=== PATIENT | female | born 1935 | race Caucasian/White ===

== ENCOUNTER 2021-01-04 08:58 | Inpatient (IN) | payer MEDICARE, SELFPAY ==
[2021-01-04] VITALS (30 sets, daily range): BP systolic 115–146; BP diastolic 52–65; PULSE 58–89; RESP 17–26; TEMP 36.3–37.3; O2SAT 22–100; BMI 19.4; BMI 16.7
--- NOTE | 2021-01-04 09:11 | RAD_ITS ---
STUDY: X-RAY CHEST REASON FOR EXAM: Female, 85 years old. Cough TECHNIQUE: Single AP portable view of the chest. COMPARISON: Comparison is made with prior study dated 01/14/2016. FINDINGS: EKG electrodes are seen. Infiltrate in the right upper and right lower lobes as well as in the lingular segment of the left upper lobe. There is no demonstrated pleural abnormality. Normal size heart. Normal mediastinum and laney. Normal visualized pulmonary arteries. There is atherosclerotic calcification of the aortic arch with tortuosity. There are degenerative changes of the visualized thoracic spine. Normal visualized ribs, clavicles, and shoulders. Hiatal hernia. RAD/Chest 1 View (Portable) IMPRESSION: Infiltrate in the right upper and right lower lobes as well as in the lingular segment of the left upper lobe. Electronically Signed: Sea Tee MD at 9:51 EDT , Service support ,
--- NOTE | 2021-01-04 09:11 | EKG12_ITS ---
Test Reason : SOB COVID + Blood Pressure : / mmHG Vent. Rate : 080 BPM Atrial Rate : 080 BPM P-R Int : 126 ms QRS Dur : 056 ms QT Int : 350 ms P-R-T Axes : 072 031 035 degrees QTc Int : 403 ms Normal sinus rhythm Nonspecific ST abnormality Abnormal ECG Confirmed by POLY WALLS, YOLIS ([id number]), newspaper copy editor MURRAY THIBODEAUX ([id number]) on 01/05/2021 9:22:34 AM Referred By: RENU Confirmed By:YOLIS PANG MD
--- NOTE | 2021-01-04 09:13 | EDS_ITS ---
HPI History of Present Illness Chief Complaint: Shortness of Breath Narrative Narrative: Patient presenting for evaluation secondary to shortness of breath. Patient has a underlying history of hypertension. She had a recent hospital admission secondary to a fall and generalized weakness, and is known to be coronavirus positive. Patient was discharged, and had a recent worsening of her respiratory status. She reports that she has been ill with coronavirus symptoms over the course of approximately last week. Patient apparently woke up today and was having increasing issues with shortness of breath. She does endorse a cough and some thick sputum. She denies any chest pain. No significant nausea vomiting or diarrhea associated with this. Patient was noted to be profoundly hypoxic on room air in the 70s, she is not typically on any sort of supplemental oxygen and she does not smoke. PFSH PFSH Home Medications folic acid 2 mg PO DAILY 01/08/16 [History Last Taken 01/09/16] metoprolol succinate 25 mg PO DAILY 01/08/16 [History Last Taken 01/09/16 07:00] naproxen [Naprosyn] 1 tab PO BID 01/08/16 [History Last Taken 01/09/16 07:00] ramipril 2.5 mg PO DAILY 01/08/16 [History Last Taken 01/09/16 07:00] furosemide 40 mg PO DAILY #5 tablet 01/14/16 [Rx Last Taken Unknown] dexamethasone 6 mg PO DAILY 01/04/21 [History Last Taken Unknown] fluticasone furoate-vilanterol [Breo Ellipta] 1 inh INHALATION DAILY 01/04/21 [History Last Taken Unknown] lidocaine 1 patch TOPICAL DAILY 01/04/21 [History Last Taken Unknown] Allergy/AdvReac Type Severity Reaction Status Date / Time amoxicillin Allergy Hives Verified 01/04/21 09:08 guaifenesin [From Mucinex] Allergy Hives Verified 01/04/21 09:08 loratadine [From Claritin] Allergy Other Verified 01/04/21 09:08 Penicillins Allergy Hives Verified 01/04/21 09:08 tramadol Allergy Other Verified 01/04/21 09:08 codeine AdvReac Vomiting Verified 01/04/21 09:08 Sulfa (Sulfonamide AdvReac Vomiting Verified 01/04/21 09:08 Antibiotics) Social History Smoking Status: Unknown if ever smoked ROS ROS ED Constitutional Constitutional ED: Reports other Details: Generalized malaise ENT ENT ED: Denies sore throat Cardiovascular Cardiovascular: Denies chest pain Respiratory/Chest Respiratory/Chest: Reports cough and dyspnea Gastrointestinal Gastrointestinal: Denies abdominal pain, diarrhea, nausea or vomiting Genitourinary Genitourinary ED: Denies dysuria Musculoskeletal Musculoskeletal: Denies myalgias Integumentary Denies rash Neurologic Neurologic: Denies headache(s) or weakness Psychiatric Psychiatric: Denies depression Endocrine Endocrinology: Denies polydipsia or polyuria Hematologic/Lymphatic Hematologic/Lymphatic: Denies easy bleeding or easy bruising Allergic/Immunologic Allergic/Immunologic ED: Denies urticaria EXAM Physical Exam Const Vital Signs: 01/04/21 08:59 01/04/21 09:06 01/04/21 09:12 Temperature 98.0 F 98.0 F Temperature Source Temporal Temporal Pulse Rate 83 89 Respiratory Rate 26 H 26 H Respiratory Effort Respiratory Depth Respiratory Pattern Blood Pressure 144/52 H 144/52 H Blood Pressure Mean 82 82 Pulse Ox 90 70 97 Oxygen Delivery Method Nasal Cannula Room Air Airvo Oxygen Flow Rate (L/min) 15 Fraction of Inspired Oxygen (FIO2) 01/04/21 09:24 01/04/21 09:27 01/04/21 09:44 Temperature Temperature Source Pulse Rate 85 80 Respiratory Rate 22 H 17 Respiratory Effort Short of Breath Labored Accessory Muscle Use Retracting Respiratory Depth Shallow Respiratory Pattern Tachypnea Tachypnea Normal Blood Pressure Blood Pressure Mean Pulse Ox 95 95 Oxygen Delivery Method Room Air Oxygen Flow Rate (L/min) Fraction of Inspired Oxygen (FIO2) 50 83 01/04/21 09:58 Temperature Temperature Source Pulse Rate 81 Respiratory Rate 22 H Respiratory Effort Respiratory Depth Respiratory Pattern Blood Pressure 120/57 L Blood Pressure Mean 78 Pulse Ox 99 Oxygen Delivery Method Airvo Oxygen Flow Rate (L/min) Fraction of Inspired Oxygen (FIO2) Positive cachectic General Appearance ED: cachectic and other Moderately dyspneic Nutritional Appearance: cachectic HEENT Reports moist mucous membranes atraumatic Eyes PERRL and EOMs intact bilaterally Neck supple and no JVD Resp Resp Narrative: Minimally tachypneic, clear lung sounds. No evidence of retractions or accessory muscle use. Cardio regular rate, regular rhythm and no murmurs Cardio Narrative: 2+ radial pulses bilaterally symmetric GI non-tender Palpation: soft Extremity normal to inspection General Extremety ED: Negative for edema or tenderness General Extremity: Negative for edema Neuro oriented x3 Sensorium / Orientation: alert Psych mental status grossly normal Skin Lesions: no lesions Rashes: no rashes MDM MDM MDM Narrative Medical decision making narrative: Patient presented secondary to shortness of b reath and poor oxygenation in the setting of coronavirus. Patient was placed on high flow nasal cannula, she was able to be titrated to a reasonable oxygenation. Her chest x-ray by my personal review demonstrates bilateral infiltrates right being worse than the left. Patient was noted to have a leukocytosis at 12, and elevated D-dimer and fibrinogen. Renal function was actually reasonably within normal limits. LDH was 368. Troponin was negative. Lactic acid was noted to be elevated. Patient was started on gentle fluid resuscitation. I was concerned for the possibility of pulmonary embolism in the patient, CT angiogram confirmed this. Patient was given Decadron, she was also started on a heparin drip. Patient likely requires admission to intensive care. Lab Data Labs: Laboratory Results - last 24 hr 01/04/21 01/04/21 01/04/21 09:05 09:05 09:05 WBC 12.3 H RBC 4.25 Hgb 13.2 Hct 41.4 MCV 97.4 MCH 31.1 MCHC 31.9 L RDW Std Deviation 43.9 RDW Coeff of Dinorah 12.3 Plt Count 209 MPV 9.7 Immature Gran % (Auto) 2.400 H Neut % (Auto) 89.5 H Lymph % (Auto) 5.4 L [place] % (Auto) 2.4 Eos % (Auto) 0.1 Baso % (Auto) 0.2 Absolute Neuts (auto) 11.0 H Absolute Lymphs (auto) 0.66 L Nucleated RBC % 0 Fibrinogen 465 H D-Dimer Quant (PE/DVT) > 20.00 H* Sodium 135 L Potassium 4.1 Chloride 99 Carbon Dioxide 30.0 Anion Gap 6 BUN 14 Creatinine 0.77 Estim Creat Clear Calc 30.73 Est GFR (MDRD) Af Amer 91 Est GFR (MDRD) Non-Af 75 BUN/Creatinine Ratio 18.1 Glucose 101 Lactic Acid Calcium 8.9 Total Bilirubin 0.40 AST 17 ALT 14 Alkaline Phosphatase 82 Lactate Dehydrogenase 368 H Total Creatine Kinase 17 L Troponin I < 0.015 C-React Prot Ext Range 45.50 H Total Protein 6.7 Albumin 2.6 L Globulin 4.1 Albumin/Globulin Ratio 0.6 L 01/04/21 09:05 WBC RBC Hgb Hct MCV MCH MCHC RDW Std Deviation RDW Coeff of Dinorah Plt Count MPV Immature Gran % (Auto) Neut % (Auto) Lymph % (Auto) [place] % (Auto) Eos % (Auto) Baso % (Auto) Absolute Neuts (auto) Absolute Lymphs (auto) Nucleated RBC % Fibrinogen D-Dimer Quant (PE/DVT) Sodium Potassium Chloride Carbon Dioxide Anion Gap BUN Creatinine Estim Creat Clear Calc Est GFR (MDRD) Af Amer Est GFR (MDRD) Non-Af BUN/Creatinine Ratio Glucose Lactic Acid 2.8 H* Calcium Total Bilirubin AST ALT Alkaline Phosphatase Lactate Dehydrogenase Total Creatine Kinase Troponin I C-React Prot Ext Range Total Protein Albumin Globulin Albumin/Globulin Ratio Radiography Chest X-Ray - ED: 1 View, Read by ED Physician, Right Infiltrate and Left Infiltrate Diagnostic Testing: Radiology Impression Chest X-Ray 01/04/21 09:11 IMPRESSION: Infiltrate in the right upper and right lower lobes as well as in the lingular segment of the left upper lobe. Electronically Signed: Sea Tee MD at 9:51 EDT , Service support , Chest CTA 01/04/21 10:25 IMPRESSION: Pulmonary emboli in the branches of the right upper lobe pulmonary artery. Areas of groundglass appearance in both lungs worse in the right hemithorax suggestive of a Covid pneumonitis. Electronically Signed: Sea Tee MD at 11:16 EDT , Service support , EKG Initial EKG: Attestation: I personally reviewed and interpreted this EKG as follows: (Sinus rhythm of [address] changes, no evidence of pathologic ST elevation or abnormal T wave inversion. Normal intervals.) Critical Care Time Critical Care Time: Yes Critical care time (excluding procedures): 30-74 minutes, Including time spent:, Discussing w/Patient &/or Family/Split Leather Mosser, Discussing w/Consultants, Arranging Admission or Transfer and Performing Direct Patient Care at Bedside Discharge Plan Triage Chief Complaint: Shortness of Breath ED Provider: Edu Aden Dx/Rx/DC Orders Clinical Impression: COVID-19, Respiratory failure, Pulmonary emboli Prescriptions: No Action ramipril 2.5 MG capsule 2.5 mg PO DAILY RF: 0 folic acid 1 MG tablet 2 mg PO DAILY RF: 0 metoprolol succinate 25 MG tablet 25 mg PO DAILY RF: 0 naproxen [Naprosyn] 500 MG tablet 1 tab PO BID RF: 0 furosemide 40 MG tablet 40 mg PO DAILY Qty: 5 RF: 0 lidocaine 4 % Adhesive Patch,Medicated 1 patch TOPICAL DAILY RF: 0 dexamethasone 6 mg tablet 6 mg PO DAILY RF: 0 Breo Ellipta 100-25 mcg/dose blister with device 1 inh INHALATION DAILY RF: 0 Primary Care Provider: Jennie Matias NP Referrals: Jennie Matias NP, [employer] OPERATOR-C [Primary Care Provider] - Disposition Disposition: Acute Care [facility]
[2021-01-04 09:18] LABS: Absolute Lymphocyte Count 0.66 X10^3/uL (0.83-4.51); Basophil# 0.03 X10^3/uL; Basophil% 0.2 % (0-1); Eosinophil# 0.01 X10^3/uL; Eosinophils% 0.1 % (0-5); Hematocrit 41.4 % (37-47); Hemoglobin 13.2 g/dL (12.0-15.0); Lymphocyte # 0.66 X10^3/ul (0.83-4.51); Lymphocyte % 5.4 % (19-41); Mean Corp Hgb Conc 31.9 g/dL (32-36); Mean Corpuscular Hgb 31.1 pg (27.0-32.0); Mean Corpuscular Volume 97.4 fL (81-99); Mean Platelet Vol. 9.7 fl (6.2-12.0); Monocyte% 2.4 % (0-10); NRBC Flagged by Analyzer 0 % (0-5); Neutrophil # 10.96 X10^3/uL (2.7-7.7); Neutrophil % 89.5 % (47-70); Platelet Count 209 K/mm3 (150-450); RBC Distribution Width CV 12.3 % (11.6-14.6); RBC Distribution Width SD 43.9 fl (35.1-43.9); Red Blood Count 4.25 M/mm3 (4.2-5.4); White Blood Count 12.3 K/mm3 (4.4-11.0)
[2021-01-04] MEDS: dexAMETHasone 10 MG/ML Vial 8 MG IV (09:21)
[2021-01-04 09:31] LABS: Fibrinogen 465 mg/dl (203-444)
[2021-01-04 09:44] LABS: ALB/GLOB Ratio 0.6 RATIO (0.9-2.4); AST(SGOT) 17 U/L (15-37); Alanine Aminotransfer ALT/SGPT 14 U/L (13-56); Albumin, Serum 2.6 g/dL (3.2-5.0); Alkaline Phosphatase 82 U/L (45-117); Anion Gap 6 (5-15); BUN 14 mg/dL (7-18); BUN/Creat Ratio 18.1 RATIO (10-20); CPK Total, Creatine Kinase 17 U/L (26-192); Calcium,Total 8.9 mg/dL (8.5-10.1); Chloride 99 mmol/L (98-107); Creatinine, Serum 0.77 mg/dL (0.55-1.02); EST Glomerular Filtration Rate 75 mL/min (>60); Est Glom Filt Rate - Afr Amer 91 mL/min (>60); Estimated Creatinine Clearance 30.73 ml/min; Globulin 4.1 g/dL (2.2-4.2); Glucose 101 mg/dL (74-106); LDH 368 U/L (84-246); Potassium 4.1 mmol/L (3.5-5.1); Protein, Total 6.7 g/dL (6.4-8.2); Sodium Level 135 mmol/L (136-145)
[2021-01-04 09:53] LABS: Lactic Acid 2.8 mmol/L (0.4-1.9)
--- NOTE | 2021-01-04 10:25 | CT_ITS ---
STUDY: CTA CHEST REASON FOR EXAM: Female, 85 years old. Severe Hypoxia, COVID RADIATION DOSAGE (If Supplied By Facility): CTDIvol = ( 5.42 ) mGy, DLP = ( 107.43 ) mGycm TECHNIQUE: The examination was performed with the intravenous administration of IV 100mL Isovue-370. Post-processing of the angiographic images was performed, with multiplanar reformation and 3D reconstruction. Individualized dose optimization techniques were used for this CT. COMPARISON: None. FINDINGS: Multiple intraluminal filling defects in branches of the right upper lobe pulmonary artery in keeping with the pulmonary emboli. There is atherosclerotic calcification of the aortic arch with tortuosity. There is no demonstrated aortic dissection. There are calcifications of the coronary arteries. Normal mediastinum. Normal hilar regions. Normal visualized trachea and bronchi. The lungs are well expanded. There is evidence of groundglass appearance in the preferential peripheral distribution involving the right upper and right lower lobes as well as right middle lobe. Patchy areas of groundglass appearance also seen in the left lower lobe and lingular segment of the left upper lobe in keeping with the diagnosis of Covid. Normal pleura. Normal chest wall structures. Normal osseous structures. Normal visualized upper abdomen. CT/CTA Chest W/WO Contrast IMPRESSION: Pulmonary emboli in the branches of the right upper lobe pulmonary artery. Areas of groundglass appearance in both lungs worse in the right hemithorax suggestive of a Covid pneumonitis. Electronically Signed: Sea Tee MD at 11:16 EDT , Service support ,
[2021-01-04 10:32] LABS: D-Dimer Quantitative (DVT/PE) > 20.00 FEU/ug/m (0.27-0.49)
--- NOTE | 2021-01-04 11:44 | HP.PCM.HOS_ITS ---
HPI - General General Date of Admission: 01/04/21 HPI Narrative ALICE KING, is a 85 F with a PMH as outlined who was admitted via the ED on 01/04/2021 with a complaint of shortness of breath. She had been sick for about a week, and wasnt getting better. She was saturating at 70% on room air at home according to her daughter. They therefore decided to bring her into the ED. CXR showed evidence of COVID 19 pneumonia. SHe seemed more hypoxic and so a CTA of the chest showed evidence of PE, so she ws started on heparin drip. In the ED, vitals showed blood pressure of 120/57, pulse of 81 respiratory rate of 22 and she was saturating at 99% on air Vo. Labs showed hemoglobin of 13.2 with WBC of 12.3 and platelets of 209. D-dimer was markedly elevated at over 20. Chemistry shows sodium of 135 with bicarb of 30 and lactic acid of 2.8. CT of the chest showed multiple intraluminal filling defects in branch of the right upper lobe pulmonary artery consistent with pulmonary emboli and evidence of groundglass appearance in both lungs worse in the right hemithorax suggestive of Covid pneumonitis. She has been admitted to be managed for acute hypoxic respiratory failure due to Covid pneumonia and PE. Of note, patient has not received her Covid vaccination. [facility] Home Medications folic acid 2 mg PO DAILY 01/08/16 [History Last Taken 01/09/16] metoprolol succinate 25 mg PO DAILY 01/08/16 [History Last Taken 01/09/16 07:00] naproxen [Naprosyn] 1 tab PO BID 01/08/16 [History Last Taken 01/09/16 07:00] ramipril 2.5 mg PO DAILY 01/08/16 [History Last Taken 01/09/16 07:00] furosemide 40 mg PO DAILY #5 tablet 01/14/16 [Rx Last Taken Unknown] dexamethasone 6 mg PO DAILY 01/04/21 [History Last Taken Unknown] fluticasone furoate-vilanterol [Breo Ellipta] 1 inh INHALATION DAILY 01/04/21 [History Last Taken Unknown] lidocaine 1 patch TOPICAL DAILY 01/04/21 [History Last Taken Unknown] Allergy/AdvReac Type Severity Reaction Status Date / Time amoxicillin Allergy Hives Verified 01/04/21 09:08 guaifenesin [From Mucinex] Allergy Hives Verified 01/04/21 09:08 loratadine [From Claritin] Allergy Other Verified 01/04/21 09:08 Penicillins Allergy Hives Verified 01/04/21 09:08 tramadol Allergy Other Verified 01/04/21 09:08 codeine AdvReac Vomiting Verified 01/04/21 09:08 Sulfa (Sulfonamide AdvReac Vomiting Verified 01/04/21 09:08 Antibiotics) Social History Smoking Status: Unknown if ever smoked ROS Constitutional Constitutional: Reports fatigue, malaise and weakness ENT HEENT: Denies abnormal hearing Cardiovascular Cardiovascular: Reports dyspnea on exertion; Denies chest pain, edema, lightheadedness, orthopnea, paroxysmal nocturnal dyspnea, rapid heart rate or syncope Respiratory/Chest Respiratory/Chest: Reports cough, dyspnea, shortness of breath at rest and shortness of breath with exertion; Denies excessive phlegm production, productive cough or wheezing Gastrointestinal Gastrointestinal: Denies abdominal pain, diarrhea, hematochezia, nausea or vomiting Genitourinary Genitourinary: Denies burning urination Musculoskeletal Musculoskeletal: Denies arthralgias, myalgias or neck pain Neurologic Neurologic: Denies dizziness, focal weakness, headache(s), numbness or seizures Psychiatric Psychiatric: Denies anxiety or depression Hematologic/Lymphatic Hematologic/Lymphatic: Denies anemia Vital Signs Vital Signs Vital Signs: 01/04/21 08:59 01/04/21 09:06 01/04/21 09:12 Temperature 98.0 F 98.0 F Temperature Source Temporal Temporal Pulse Rate 83 89 Respiratory Rate 26 H 26 H Respiratory Effort Respiratory Depth Respiratory Pattern Blood Pressure 144/52 H 144/52 H Blood Pressure Mean 82 82 Pulse Ox 90 70 97 Oxygen Delivery Method Nasal Cannula Room Air Airvo Oxygen Flow Rate (L/min) 15 Fraction of Inspired Oxygen (FIO2) 01/04/21 09:24 01/04/21 09:27 01/04/21 09:44 Temperature Temperature Source Pulse Rate 85 80 Respiratory Rate 22 H 17 Respiratory Effort Short of Breath Labored Accessory Muscle Use Retracting Respiratory Depth Shallow Respiratory Pattern Tachypnea Tachypnea Normal Blood Pressure Blood Pressure Mean Pulse Ox 95 95 Oxygen Delivery Method Room Air Oxygen Flow Rate (L/min) Fraction of Inspired Oxygen (FIO2) 50 83 01/04/21 09:58 Temperature Temperature Source Pulse Rate 81 Respiratory Rate 22 H Respiratory Effort Respiratory Depth Respiratory Pattern Blood Pressure 120/57 L Blood Pressure Mean 78 Pulse Ox 99 Oxygen Delivery Method Airvo Oxygen Flow Rate (L/min) Fraction of Inspired Oxygen (FIO2) Physical Exam Const alert and oriented x3 Orientation / Consciousness: lethargic HEENT head/scalp atraumatic and hearing grossly normal bilaterally Eyes PERRL, EOMs intact bilaterally and conjunctivae normal Neck no lymphadenopathy Resp Resp Narrative: diminished breath sounds bibasally; Tachypneic. On Airvo GI normal to inspection, nondistended, normoactive bowel sounds, soft to palpation, non-tender and non-distended Extremity normal to inspection, full ROM and no clubbing, cyanosis or edema Skin no rashes or lesions noted Neuro oriented x3 Sensorium / Orientation: awake and alert Psych affect normal Lab / Micro Data Result Diagrams: 01/04/21 09:05 01/04/21 09:05 Labs: Laboratory Results - last 24 hr 01/04/21 01/04/21 01/04/21 09:05 09:05 09:05 WBC 12.3 H RBC 4.25 Hgb 13.2 Hct 41.4 MCV 97.4 MCH 31.1 MCHC 31.9 L RDW Std Deviation 43.9 RDW Coeff of Dinorah 12.3 Plt Count 209 MPV 9.7 Immature Gran % (Auto) 2.400 H Neut % (Auto) 89.5 H Lymph % (Auto) 5.4 L [place] % (Auto) 2.4 Eos % (Auto) 0.1 Baso % (Auto) 0.2 Absolute Neuts (auto) 11.0 H Absolute Lymphs (auto) 0.66 L Nucleated RBC % 0 Fibrinogen 465 H D-Dimer Quant (PE/DVT) > 20.00 H* Sodium 135 L Potassium 4.1 Chloride 99 Carbon Dioxide 30.0 Anion Gap 6 BUN 14 Creatinine 0.77 Estim Creat Clear Calc 30.73 Est GFR (MDRD) Af Amer 91 Est GFR (MDRD) Non-Af 75 BUN/Creatinine Ratio 18.1 Glucose 101 Lactic Acid Calcium 8.9 Total Bilirubin 0.40 AST 17 ALT 14 Alkaline Phosphatase 82 Lactate Dehydrogenase 368 H Total Creatine Kinase 17 L Troponin I < 0.015 C-React Prot Ext Range 45.50 H Total Protein 6.7 Albumin 2.6 L Globulin 4.1 Albumin/Globulin Ratio 0.6 L 01/04/21 09:05 WBC RBC Hgb Hct MCV MCH MCHC RDW Std Deviation RDW Coeff of Dinorah Plt Count MPV Immature Gran % (Auto) Neut % (Auto) Lymph % (Auto) [place] % (Auto) Eos % (Auto) Baso % (Auto) Absolute Neuts (auto) Absolute Lymphs (auto) Nucleated RBC % Fibrinogen D-Dimer Quant (PE/DVT) Sodium Potassium Chloride Carbon Dioxide Anion Gap BUN Creatinine Estim Creat Clear Calc Est GFR (MDRD) Af Amer Est GFR (MDRD) Non-Af BUN/Creatinine Ratio Glucose Lactic Acid 2.8 H* Calcium Total Bilirubin AST ALT Alkaline Phosphatase Lactate Dehydrogenase Total Creatine Kinase Troponin I C-React Prot Ext Range Total Protein Albumin Globulin Albumin/Globulin Ratio Micro: Microbiology 01/04/21 09:15 SARS-CoV-2 Antigen (Rapid) - Final Nasal Secretion SARS-CoV-2 (COVID 19) Radiology Impression Chest X-Ray 01/04/21 09:11 IMPRESSION: Infiltrate in the right upper and right lower lobes as well as in the lingular segment of the left upper lobe. Electronically Signed: Sea Tee MD at 9:51 EDT , Service support , Chest CTA 01/04/21 10:25 IMPRESSION: Pulmonary emboli in the branches of the right upper lobe pulmonary artery. Areas of groundglass appearance in both lungs worse in the right hemithorax suggestive of a Covid pneumonitis. Electronically Signed: Sea Tee MD at 11:16 EDT , Service support , Assessment & Plan Assessment/Plan (1) COVID-19: Status: Acute Code(s): U07.1 - COVID-19 (2) Respiratory failure: Status: Acute Code(s): J96.90 - Respiratory failure, unspecified, unspecified whether with hypoxia or hypercapnia (3) Pulmonary emboli: Status: Acute Code(s): I26.99 - Other pulmonary embolism without acute cor pulmonale (4) Essential (primary) hypertension: Status: Chronic Code(s): I10 - Essential (primary) hypertension (5) Rheumatoid arthritis: Status: Chronic Code(s): M06.9 - Rheumatoid arthritis, unspecified Plan: #Acute hypoxic respiratory failure due to COVID 19 infection * Admit to ICU * Consult critical care * Titrate oxygen to maintain saturation above 90%. Patient was diagnosed with Covid over 1 week ago to leave up to critical care to determine if she would benefit from the severe * IV Decadron 6 mg daily * * # Right-sided pulmonary embolism * CT of the chest showed PE in the right upper lobes * Started on heparin drip. Will continue. Transition to oral anticoagulant * Pulmonology consulted. * PE is likely due to COVID-19 infection * #COVID-19 pneumonia: As on the respiratory failure due to COVID-19 infection #Hypertension: On metoprolol and ramipril. Will continue. DVT prophylaxis: Not indicated as patient is on heparin drip. Code status: Paitent and daughter counseled about differences between full code, DNRCC and DNRCCA. Patient elects to be full code. Total kpad-to-ckcx time 17 minutes. * Visit Charges Inpatient E&M: 59831 Init Hosp L3 Multi Select Codes Hospitalists' Procedures Procedures: 45099 Advncd Care Plan 30 Min
[2021-01-04 11:48] LABS: Partial Thromboplast Time 26.5 Seconds (24.1-36.2)
[2021-01-04] MEDS: Heparin Injection (Vial) 5,000 UNIT/ML VIAL 3000 UNIT IV (11:53)
[2021-01-04] MEDS: HEPARIN/D5w 25,000 UNITS 25,000 UNITS/250 ML IV.SOLN. 5.5 UNITS IV (11:54)
[2021-01-04 12:19] LABS: Procalcitonin 0.07 ng/mL (0.00-0.09)
--- NOTE | 2021-01-04 12:38 | NURSING ---
icu 4 delilah singleton, resp failure, pe
[2021-01-04 13:14] LABS: Reflex Lactate? Y
[2021-01-04 14:36] LABS: Lactic Acid 1.6 mmol/L (0.4-1.9)
[2021-01-04] MEDS: Albuterol 2.5 MG/3 ML VIAL.NEB. INHALATION (18:54)
[2021-01-04] MEDS: Budesonide Respules 0.5 MG/2 ML AMPUL.NEB. INHALATION (18:54)
[2021-01-05] VITALS (34 sets, daily range): BP systolic 104–161; BP diastolic 48–82; PULSE 50–88; RESP 16–95; TEMP 36.6–36.7; O2SAT 92–99; BMI 17.0
[2021-01-05 00:38] LABS: Partial Thromboplast Time 74.1 Seconds (24.1-36.2)
[2021-01-05 05:18] LABS: Absolute Lymphocyte Count 0.38 X10^3/uL (0.83-4.51); Absolute Neutrophil Count 5.7 X10^3/uL (2.0-7.7); Basophil# 0.01 X10^3/uL; Basophil% 0.2 % (0-1); Eosinophil# 0.01 X10^3/uL; Eosinophils% 0.2 % (0-5); Hematocrit 33.9 % (37-47); Hemoglobin 10.8 g/dL (12.0-15.0); Lymphocyte # 0.38 X10^3/ul (0.83-4.51); Lymphocyte % 5.8 % (19-41); Mean Corp Hgb Conc 31.9 g/dL (32-36); Mean Corpuscular Hgb 31.4 pg (27.0-32.0); Mean Corpuscular Volume 98.5 fL (81-99); Monocyte# 0.22 X10^3/uL; Monocyte% 3.4 % (0-10); NRBC Flagged by Analyzer 0 % (0-5); Neutrophil # 5.71 X10^3/uL (2.7-7.7); POSITIVE DIFFERENTIAL YES; Platelet Count 154 K/mm3 (150-450); RBC Distribution Width CV 12.4 % (11.6-14.6); RBC Distribution Width SD 44.9 fl (35.1-43.9); Red Blood Count 3.44 M/mm3 (4.2-5.4); White Blood Count 6.6 K/mm3 (4.4-11.0)
[2021-01-05 05:30] LABS: Differential Indicated SCAN CRITERIA MET
[2021-01-05 05:41] LABS: ALB/GLOB Ratio 0.6 RATIO (0.9-2.4); AST(SGOT) 14 U/L (15-37); Alanine Aminotransfer ALT/SGPT 12 U/L (13-56); Albumin, Serum 2.1 g/dL (3.2-5.0); Alkaline Phosphatase 63 U/L (45-117); Anion Gap 6 (5-15); BUN 17 mg/dL (7-18); BUN/Creat Ratio 27.4 RATIO (10-20); Calcium,Total 8.1 mg/dL (8.5-10.1); Chloride 98 mmol/L (98-107); Creatinine, Serum 0.62 mg/dL (0.55-1.02); EST Glomerular Filtration Rate 97 mL/min (>60); Est Glom Filt Rate - Afr Amer 117 mL/min (>60); Estimated Creatinine Clearance 28.69 ml/min; Globulin 3.5 g/dL (2.2-4.2); Glucose 107 mg/dL (74-106); Magnesium 2.4 mg/dL (1.6-2.6); Potassium 4.2 mmol/L (3.5-5.1); Protein, Total 5.6 g/dL (6.4-8.2); Sodium Level 135 mmol/L (136-145)
--- NOTE | 2021-01-05 05:46 | EX.PCM.CONCC ---
Assessment & Plan Assessment/Plan (1) COVID-19: Status: Acute Code(s): U07.1 - COVID-19 (2) Respiratory failure: Status: Acute Code(s): J96.90 - Respiratory failure, unspecified, unspecified whether with hypoxia or hypercapnia (3) Pulmonary emboli: Status: Acute Code(s): I26.99 - Other pulmonary embolism without acute cor pulmonale Plan: RECOMMENDATIONS: 1. Continue patient on airVo heated high flow and wean FiO2 to maintain oxygen saturations at or above 90%. 2. Continue systemic anticoagulation with heparin infusion. 3. Continue Decadron to complete 10-day treatment course. 4. Continue bronchodilator therapy as ordered. 5. Continue Lasix per home regimen. 6. Will defer need for remdesivir to infectious diseases. IMPRESSIONS: 1. Acute hypoxemic respiratory failure secondary to COVID-19 pneumonia/pulmonary emboli The patient presented with approximately 1 week of symptoms which gradually worsened. She was subsequently found to have not only coronavirus but pulmonary emboli as well. The patient was subsequently placed on Decadron and systemic anticoagulation. Plan to continue heated high flow oxygen to maintain saturations at or above 90%. Liver and renal function are stable. Will defer need for remdesivir into infectious diseases. 2. Hypertension/rheumatoid arthritis/asthma/advanced age Complicates care, management, recovery and prognosis. Continue home medications as indicated. This note was generated with [employer] dictation software. It may contain incorrect words, spelling, and punctuation that were not noted in checking the note before signing. HPI Consult Data Date of Consult: 01/06/21 HPI Narrative Reason for Consultation: Acute hypoxemic respiratory failure secondary to COVID-19 pneumonia HPI Narrative: The patient is an 85-year-old female, with a history as outlined below, who presented to the emergency department on January 04 with complaints of shortness of breath. The patient reported that her shortness of breath had been present for approximately 1 week. The patient has not yet received a coronavirus vaccination. Her oxygen saturations were apparently low in her home environment as well. On presentation to the emergency department, the patient was noted to be afebrile and hemodynamically stable. Initial laboratory evaluation revealed a white blood cell count of 12,000. Coagulation profile revealed an elevated D-dimer level to greater than 20. Chemistry profile was notable for a sodium of 135 and creatinine of 0.62. Lactate was elevated to 2.8. Rapid coronavirus antigen testing was positive. CTA chest revealed evidence of pulmonary emboli in the right upper lobe along with groundglass changes in both lungs. The patient was started on heated high flow oxygen and Decadron. She was subsequently admitted to the medical intensive care unit for further management. [facility] Home Medications folic acid 2 mg PO DAILY 01/08/16 [History Last Taken 01/09/16] metoprolol succinate 25 mg PO DAILY 01/08/16 [History Last Taken 01/09/16 07:00] naproxen [Naprosyn] 1 tab PO BID 01/08/16 [History Last Taken 01/09/16 07:00] ramipril 2.5 mg PO DAILY 01/08/16 [History Last Taken 01/09/16 07:00] furosemide 40 mg PO DAILY #5 tablet 01/14/16 [Rx Last Taken Unknown] dexamethasone 6 mg PO DAILY 01/04/21 [History Last Taken Unknown] fluticasone furoate-vilanterol [Breo Ellipta] 1 inh INHALATION DAILY 01/04/21 [History Last Taken Unknown] lidocaine 1 patch TOPICAL DAILY 01/04/21 [History Last Taken Unknown] Allergy/AdvReac Type Severity Reaction Status Date / Time amoxicillin Allergy Hives Verified 01/04/21 09:08 guaifenesin [From Mucinex] Allergy Hives Verified 01/04/21 09:08 loratadine [From Claritin] Allergy Other Verified 01/04/21 09:08 Penicillins Allergy Hives Verified 01/04/21 09:08 tramadol Allergy Other Verified 01/04/21 09:08 codeine AdvReac Vomiting Verified 01/04/21 09:08 Sulfa (Sulfonamide AdvReac Vomiting Verified 01/04/21 09:08 Antibiotics) Social History Smoking Status: Unknown if ever smoked ROS Constitutional Constitutional: Reports chills and fatigue; Denies fever(s) Eyes Eyes: Denies blurry vision or change in vision ENT HEENT: Denies dizziness Cardiovascular Cardiovascular: Denies chest pain Respiratory/Chest Respiratory/Chest: Reports cough and dyspnea; Denies chest tightness Gastrointestinal Gastrointestinal: Denies abdominal pain, diarrhea or heartburn Genitourinary Genitourinary: Denies difficulty urinating or dysuria Musculoskeletal Musculoskeletal: Denies arthralgias Integumentary Integumentary: Denies lesions Neurologic Neurologic: Denies abnormal gait or abnormal speech Psychiatric Psychiatric: Denies anxiety Endocrine Endocrinology: Reports fatigue Hematologic/Lymphatic Hematologic/Lymphatic: Denies easy bleeding Physical Exam Narrative The patient's most recent lab work, culture data and imaging studies have all been personally reviewed. Const alert, oriented x3 and no apparent distress General Appearance: frail HEENT normocephalic and head/scalp atraumatic Eyes PERRL Resp Auscultation: diminished lung sounds; Negative for rales, rhonchi or wheezes Cardio regular rate and regular rhythm GI normal to inspection, nondistended, normoactive bowel sounds Extremity no clubbing, cyanosis or edema Skin no rashes or lesions noted Neuro oriented x3, CN's II-XII intact bilaterally and moves all extremities Psych cooperative and affect normal Lab / Micro Data Result Diagrams: 01/06/21 06:00 01/06/21 06:00 Labs: Laboratory Results - last 24 hr 01/04/21 01/04/21 01/04/21 09:05 09:05 09:05 WBC 12.3 H RBC 4.25 Hgb 13.2 Hct 41.4 MCV 97.4 MCH 31.1 MCHC 31.9 L RDW Std Deviation 43.9 RDW Coeff of Dinorah 12.3 Plt Count 209 MPV 9.7 Immature Gran % (Auto) 2.400 H Neut % (Auto) 89.5 H Lymph % (Auto) 5.4 L Sullivan % (Auto) 2.4 Eos % (Auto) 0.1 Baso % (Auto) 0.2 Absolute Neuts (auto) 11.0 H Absolute Lymphs (auto) 0.66 L Nucleated RBC % 0 APTT Fibrinogen 465 H D-Dimer Quant (PE/DVT) > 20.00 H* Sodium 135 L Potassium 4.1 Chloride 99 Carbon Dioxide 30.0 Anion Gap 6 BUN 14 Creatinine 0.77 Estim Creat Clear Calc 30.73 Est GFR (MDRD) Af Amer 91 Est GFR (MDRD) Non-Af 75 BUN/Creatinine Ratio 18.1 Glucose 101 Lactic Acid Calcium 8.9 Magnesium Total Bilirubin 0.40 AST 17 ALT 14 Alkaline Phosphatase 82 Lactate Dehydrogenase 368 H Total Creatine Kinase 17 L Troponin I < 0.015 C-React Prot Ext Range 45.50 H Total Protein 6.7 Albumin 2.6 L Globulin 4.1 Albumin/Globulin Ratio 0.6 L Procalcitonin 01/04/21 01/04/21 01/04/21 09:05 09:05 09:05 WBC RBC Hgb Hct MCV MCH MCHC RDW Std Deviation RDW Coeff of Dinorah Plt Count MPV Immature Gran % (Auto) Neut % (Auto) Lymph % (Auto) Sullivan % (Auto) Eos % (Auto) Baso % (Auto) Absolute Neuts (auto) Absolute Lymphs (auto) Nucleated RBC % APTT 26.5 Fibrinogen D-Dimer Quant (PE/DVT) Sodium Potassium Chloride Carbon Dioxide Anion Gap BUN Creatinine Estim Creat Clear Calc Est GFR (MDRD) Af Amer Est GFR (MDRD) Non-Af BUN/Creatinine Ratio Glucose Lactic Acid 2.8 H* Calcium Magnesium Total Bilirubin AST ALT Alkaline Phosphatase Lactate Dehydrogenase Total Creatine Kinase Troponin I C-React Prot Ext Range Total Protein Albumin Globulin Albumin/Globulin Ratio Procalcitonin 0.07 01/04/21 01/04/21 01/04/21 14:00 14:20 17:00 WBC RBC Hgb Hct MCV MCH MCHC RDW Std Deviation RDW Coeff of Dinorah Plt Count MPV Immature Gran % (Auto) Neut % (Auto) Lymph % (Auto) Sullivan % (Auto) Eos % (Auto) Baso % (Auto) Absolute Neuts (auto) Absolute Lymphs (auto) Nucleated RBC % APTT Fibrinogen D-Dimer Quant (PE/DVT) Sodium Potassium Chloride Carbon Dioxide Anion Gap BUN Creatinine Estim Creat Clear Calc Est GFR (MDRD) Af Amer Est GFR (MDRD) Non-Af BUN/Creatinine Ratio Glucose Lactic Acid 1.6 Calcium Magnesium Total Bilirubin AST ALT Alkaline Phosphatase Lactate Dehydrogenase Total Creatine Kinase Troponin I < 0.015 0.016 C-React Prot Ext Range Total Protein Albumin Globulin Albumin/Globulin Ratio Procalcitonin 01/04/21 01/04/21 01/05/21 17:00 20:45 00:09 WBC RBC Hgb Hct MCV MCH MCHC RDW Std Deviation RDW Coeff of Dinorah Plt Count MPV Immature Gran % (Auto) Neut % (Auto) Lymph % (Auto) Sullivan % (Auto) Eos % (Auto) Baso % (Auto) Absolute Neuts (auto) Absolute Lymphs (auto) Nucleated RBC % APTT 77.0 H 74.1 H Fibrinogen D-Dimer Quant (PE/DVT) Sodium Potassium Chloride Carbon Dioxide Anion Gap BUN Creatinine Estim Creat Clear Calc Est GFR (MDRD) Af Amer Est GFR (MDRD) Non-Af BUN/Creatinine Ratio Glucose Lactic Acid Calcium Magnesium Total Bilirubin AST ALT Alkaline Phosphatase Lactate Dehydrogenase Total Creatine Kinase Troponin I < 0.015 C-React Prot Ext Range Total Protein Albumin Globulin Albumin/Globulin Ratio Procalcitonin 01/05/21 01/05/21 05:00 05:00 WBC 6.6 RBC 3.44 L Hgb 10.8 L Hct 33.9 L MCV 98.5 MCH 31.4 MCHC 31.9 L RDW Std Deviation 44.9 H RDW Coeff of Dinorah 12.4 Plt Count 154 MPV 10.0 Immature Gran % (Auto) 3.400 H Neut % (Auto) 87.0 H Lymph % (Auto) 5.8 L Sullivan % (Auto) 3.4 Eos % (Auto) 0.2 Baso % (Auto) 0.2 Absolute Neuts (auto) 5.7 Absolute Lymphs (auto) 0.38 L Nucleated RBC % 0 APTT Fibrinogen D-Dimer Quant (PE/DVT) Sodium 135 L Potassium 4.2 Chloride 98 Carbon Dioxide 31.0 Anion Gap 6 BUN 17 Creatinine 0.62 Estim Creat Clear Calc 28.69 Est GFR (MDRD) Af Amer 117 Est GFR (MDRD) Non-Af 97 BUN/Creatinine Ratio 27.4 H Glucose 107 H Lactic Acid Calcium 8.1 L Magnesium 2.4 Total Bilirubin 0.30 AST 14 L ALT 12 L Alkaline Phosphatase 63 Lactate Dehydrogenase Total Creatine Kinase Troponin I C-React Prot Ext Range Total Protein 5.6 L Albumin 2.1 L Globulin 3.5 Albumin/Globulin Ratio 0.6 L Procalcitonin Micro: Microbiology 01/04/21 09:15 SARS-CoV-2 Antigen (Rapid) - Final Nasal Secretion SARS-CoV-2 (COVID 19) Radiology Impression Chest X-Ray 01/04/21 09:11 IMPRESSION: Infiltrate in the right upper and right lower lobes as well as in the lingular segment of the left upper lobe. Electronically Signed: Sea Tee MD at 9:51 EDT , Service support , Chest CTA 01/04/21 10:25 IMPRESSION: Pulmonary emboli in the branches of the right upper lobe pulmonary artery. Areas of groundglass appearance in both lungs worse in the right hemithorax suggestive of a Covid pneumonitis. Electronically Signed: Sea Tee MD at 11:16 EDT , Service support , Charges/Coding Visit Charges Inpatient E&M: 63701 Init Hosp L3
[2021-01-05] MEDS: Budesonide Respules 0.5 MG/2 ML AMPUL.NEB. INHALATION ×2 (07:08→19:53)
[2021-01-05] MEDS: Albuterol 2.5 MG/3 ML VIAL.NEB. INHALATION ×3 (07:08→19:53)
[2021-01-05] MEDS: dexAMETHasone 10 MG/ML Vial 6 MG IV (09:11)
[2021-01-05] MEDS: Metoprolol(XL)Succ 25 MG Tablet PO (09:11)
[2021-01-05] MEDS: Furosemide 40 MG Tablet PO (09:12)
[2021-01-05] MEDS: Ramipril 2.5 MG Capsule PO (09:12)
[2021-01-05] MEDS: 0.9% Saline Lock 10 ML Syringe IV ×2 (09:12→23:25)
[2021-01-05] MEDS: Naproxen 500 MG Tablet PO (09:12)
[2021-01-05] MEDS: Folic Acid 1 MG Tablet 2 MG PO (09:12)
--- NOTE | 2021-01-05 10:15 | NT.THERAPY_ITS ---
Nutrition Therapy Report - History Current diet / nutrition support order:: cardiac - Anthropometric Measurements Height:: 5 ft 4 in Weight:: 45 kg Body Mass Index (BMI):: 17.0 - Relevant Labs Relevant Labs:: WBC 12.3 K/mm3 (4.4-11.0) H 01/04/21 09:05 RBC 3.44 M/mm3 (4.2-5.4) L 01/05/21 05:00 Hgb 10.8 g/dL (12.0-15.0) L 01/05/21 05:00 Hct 33.9 % (37-47) L 01/05/21 05:00 MCHC 31.9 g/dL (32-36) L 01/05/21 05:00 RDW Std Deviation 44.9 fl (35.1-43.9) H 01/05/21 05:00 Immature Gran % (Auto) 3.400 % (0.0-0.9) H 01/05/21 05:00 Neut % (Auto) 87.0 % (47-70) H 01/05/21 05:00 Lymph % (Auto) 5.8 % (19-41) L 01/05/21 05:00 Absolute Neuts (auto) 11.0 X10^3/uL (2.0-7.7) H 01/04/21 09:05 Absolute Lymphs (auto) 0.38 X10^3/uL (0.83-4.51) L 01/05/21 05:00 APTT 51.0 Seconds (24.1-36.2) H 01/05/21 06:10 Fibrinogen 465 mg/dl (203-444) H 01/04/21 09:05 D-Dimer Quant (PE/DVT) > 20.00 FEU/ug/m (0.27-0.49) H* 01/04/21 09:05 Sodium 135 mmol/L (136-145) L 01/05/21 05:00 BUN/Creatinine Ratio 27.4 RATIO (10-20) H 01/05/21 05:00 Glucose 107 mg/dL (74-106) H 01/05/21 05:00 Lactic Acid 2.8 mmol/L (0.4-1.9) H* 01/04/21 09:05 Calcium 8.1 mg/dL (8.5-10.1) L 01/05/21 05:00 AST 14 U/L (15-37) L 01/05/21 05:00 ALT 12 U/L (13-56) L 01/05/21 05:00 Lactate Dehydrogenase 368 U/L (84-246) H 01/04/21 09:05 Total Creatine Kinase 17 U/L (26-192) L 01/04/21 09:05 C-React Prot Ext Range 45.50 mg/L (0.0-3.0) H 01/04/21 09:05 Total Protein 5.6 g/dL (6.4-8.2) L 01/05/21 05:00 Albumin 2.1 g/dL (3.2-5.0) L 01/05/21 05:00 Albumin/Globulin Ratio 0.6 RATIO (0.9-2.4) L 01/05/21 05:00 - Assessment Food / Nutrition-Related History:: Spoke w/ pt via room phone d/t COVID-19 isolation. Pt able to provide limited information d/t shortness of breath. 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 Denies significant changes in appetite but thinks she's been eating much less. UBW 105# and CBW 99.2#-5.8#/5.5% wt loss x 1 week is significant for acute malnutrition. - Nutrition Diagnosis Problem / Etiology / Signs & Symptoms (PES):: severe, acute malnutrition r/t inadequate energy intake during acute illness as evidenced by unintentional wt loss of 5.8#/5.5% <1 week, estimated PO intake meeting <50% of estimated nutritional needs x 1 week Evidence of Malnutrition Exists:: Yes Severe PCM:: Acute Illness - Nutrition Intervention Nutrition Prescription:: [id number] calories/day (1.3xRMR). 45-55 g protein/day (1g/kg). 1125mL fluid/day (25mL/kg) - Food / Nutrient Delivery Interventions Summary of nutrition intervention:: Pt agreeable to trying Magic Cup w/ lunch, Ensure Enlive w/ breakfast and dinner. Nutrition support ordered as / adjusted to:: will change diet to regular given acute malnutrition; will add magic cup w/ lunch and ensure enlive w/ breakfast and dinner for additional calories/protein if consumed. - MNT Monitoring Further MNT monitoring and evaluation required?: Yes MNT Follow-up in:: 3-5 days
--- NOTE | 2021-01-05 11:11 | CASEMGMT ---
Addendum entered by Arti Parry 01/05/21 11:29: Per dtr's, pt had COVID testing done @ the beginning of last week @ [facility], but unable to provide exact date. Pt was then admitted to [facility] later in the week and d/c'd home last Sunday (December 31). Gabrielle states she has had both of her COVID shots. Mac is scheduled to get her 1st COVID shot tomorrow. Neither of them have any COVID symptoms and they have been quarantining. Original Note: RN CM SALES AND RETAIL MANAGEMENT RECRUITER CM placed call to pt's room for initial transition planning/care coordination assessment. Pt is [facility] and had difficulty understanding this designer writer over the phone. She asked MARK WINTER to call her daughter, aGbrielle, to review information with her. Call placed to Gabrielle at this time. Pt's other daughter, Madeline, also on speaker phone during conversation and the following information gathered from both of them. Care providers, pharmacy, and demographics verified/updated at this time. PCP: WILLIAN Matias Specialists: none Preferred Pharmacy: [facility] Retail Insurance: [facility] Prescription Benefit: Yes Living Will/HPOA: Gabrielle thinks pt has completed these, but she is not certain. She states, We may have to have these done again. Dtr's made aware, if they are unable to locate the forms or if pt would like to change them in the future, that SW from [facility] can assist w/completing these forms as an OP after pt is out of COVID isolation precautions. Dtr's provided w/SW contact info and they were made aware they can call for an appt if desired. LNOK: Pt has 5 adult children. Dtr's, Gabrielle and Madeline, live w/pt and help to take care of her. Living Arrangements: Pt lives w/Dtr's, Gabrielle and Madeline, who help to take care of her. 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 They live in a 2-story home w/3 steps to enter w/rails. Pt does okay w/the stairs as long as she is using the handrails. FFSU. Pt able feed herself and to partially bath/dress herself. Dtr's assist w/bathing/dressing as needed and w/all home mgmt tasks. Transportation: Daughters DME: States has the following DME: O2 @ 2 L/M thru [employer], shower chair, walker. Gabrielle inquired about rails being installed in bathroom for pt. She was made aware pt's insurance does not cover for these and recommended having someone in the family install these, if possible. She also stated they are interested in getting a hospital bed for pt and advised them to contact pt's PCP for this. HHC/SNF: No history of either. Gabrielle states pt would never go to one of those referring to SNF. Pt's daughters wish for pt to return home @ discharge and they would be interested in HHC. CM to follow for home oxygen needs and any further discharge planning/needs. Dtr's voice no further concerns/needs at this time. Advised them to ask for CM if any further questions/concerns/needs arise. They voice understanding. PLAN: Home w/HHC. Follow for increase in O2 needs @ discharge. Pt currently has O2 @ 2 L/M thru [employer] @ home. PT/OT torsten pending. Pt w/ +PE. Follow for anti-coag @ d/c. Matthieu Abernathy M
--- NOTE | 2021-01-05 11:26 | PN.HOSP_ITS ---
Subjective Subjective: Patient seen and examined. She looks better today, and she says she feels much better. She still on AirVo. She is still coughing. She denies fever, chills, nausea vomiting. Review of symptoms otherwise negative. She has remained hemodynamically stable. Objective Data Objective Data Vital Signs: Vital Signs Temp Pulse Resp BP Pulse Ox 98.0 F 74 24 H 121/58 H 98 01/05/21 09:00 01/05/21 11:00 01/05/21 10:00 01/05/21 11:00 01/05/21 11:00 Oxygen Flow Rate (L/min) 55 Oxygen Delivery Method Airvo Weight: 99 lb 3.328 oz Body Mass Index (BMI) 17.0 Intake & Output: Intake and Output for Last 24 Hours 01/03/21 01/04/21 01/05/21 23:59 23:59 23:59 Intake Total 664.55 / 664.55 524.07 / 524.07 Output Total 300 / 300 500 / 500 Balance 364.55 / 364.55 24.07 / 24.07 Lab / Micro Data Result Diagrams: 01/05/21 05:00 01/05/21 05:00 Labs: Laboratory Results - last 24 hr 01/04/21 01/04/21 01/04/21 09:05 09:05 14:00 WBC RBC Hgb Hct MCV MCH MCHC RDW Std Deviation RDW Coeff of Dinorah Plt Count MPV Immature Gran % (Auto) Neut % (Auto) Lymph % (Auto) [place] % (Auto) Eos % (Auto) Baso % (Auto) Absolute Neuts (auto) Absolute Lymphs (auto) Nucleated RBC % APTT 26.5 Sodium Potassium Chloride Carbon Dioxide Anion Gap BUN Creatinine Estim Creat Clear Calc Est GFR (MDRD) Af Amer Est GFR (MDRD) Non-Af BUN/Creatinine Ratio Glucose Lactic Acid 1.6 Calcium Magnesium Total Bilirubin AST ALT Alkaline Phosphatase Troponin I Total Protein Albumin Globulin Albumin/Globulin Ratio Procalcitonin 0.07 01/04/21 01/04/21 01/04/21 14:20 17:00 17:00 WBC RBC Hgb Hct MCV MCH MCHC RDW Std Deviation RDW Coeff of Dinorah Plt Count MPV Immature Gran % (Auto) Neut % (Auto) Lymph % (Auto) [place] % (Auto) Eos % (Auto) Baso % (Auto) Absolute Neuts (auto) Absolute Lymphs (auto) Nucleated RBC % APTT 77.0 H Sodium Potassium Chloride Carbon Dioxide Anion Gap BUN Creatinine Estim Creat Clear Calc Est GFR (MDRD) Af Amer Est GFR (MDRD) Non-Af BUN/Creatinine Ratio Glucose Lactic Acid Calcium Magnesium Total Bilirubin AST ALT Alkaline Phosphatase Troponin I < 0.015 0.016 Total Protein Albumin Globulin Albumin/Globulin Ratio Procalcitonin 01/04/21 01/05/21 01/05/21 20:45 00:09 05:00 WBC 6.6 RBC 3.44 L Hgb 10.8 L Hct 33.9 L MCV 98.5 MCH 31.4 MCHC 31.9 L RDW Std Deviation 44.9 H RDW Coeff of Dinorah 12.4 Plt Count 154 MPV 10.0 Immature Gran % (Auto) 3.400 H Neut % (Auto) 87.0 H Lymph % (Auto) 5.8 L [place] % (Auto) 3.4 Eos % (Auto) 0.2 Baso % (Auto) 0.2 Absolute Neuts (auto) 5.7 Absolute Lymphs (auto) 0.38 L Nucleated RBC % 0 APTT 74.1 H Sodium Potassium Chloride Carbon Dioxide Anion Gap BUN Creatinine Estim Creat Clear Calc Est GFR (MDRD) Af Amer Est GFR (MDRD) Non-Af BUN/Creatinine Ratio Glucose Lactic Acid Calcium Magnesium Total Bilirubin AST ALT Alkaline Phosphatase Troponin I < 0.015 Total Protein Albumin Globulin Albumin/Globulin Ratio Procalcitonin 01/05/21 01/05/21 05:00 06:10 WBC RBC Hgb Hct MCV MCH MCHC RDW Std Deviation RDW Coeff of Dinorah Plt Count MPV Immature Gran % (Auto) Neut % (Auto) Lymph % (Auto) [place] % (Auto) Eos % (Auto) Baso % (Auto) Absolute Neuts (auto) Absolute Lymphs (auto) Nucleated RBC % APTT 51.0 H Sodium 135 L Potassium 4.2 Chloride 98 Carbon Dioxide 31.0 Anion Gap 6 BUN 17 Creatinine 0.62 Estim Creat Clear Calc 28.69 Est GFR (MDRD) Af Amer 117 Est GFR (MDRD) Non-Af 97 BUN/Creatinine Ratio 27.4 H Glucose 107 H Lactic Acid Calcium 8.1 L Magnesium 2.4 Total Bilirubin 0.30 AST 14 L ALT 12 L Alkaline Phosphatase 63 Troponin I Total Protein 5.6 L Albumin 2.1 L Globulin 3.5 Albumin/Globulin Ratio 0.6 L Procalcitonin Micro: Microbiology 01/04/21 09:15 Nasal Secretion SARS-CoV-2 Antigen (Rapid) - Final SARS-CoV-2 (COVID 19) Physical Exam Const alert, oriented x3 and no apparent distress Exam Limitations: no limitations Nutritional Appearance: cachectic HEENT head/scalp atraumatic Eyes PERRL and EOMs intact bilaterally Neck no lymphadenopathy Resp Resp Narrative: on AirVo. diminished breath sounds bibasally, no wheezes or crackles. Cardio regular rate, regular rhythm, S1 normal heart sound, S2 normal heart sound and no gallops GI normal to inspection, nondistended, normoactive bowel sounds, soft to palpation, non-tender and non-distended Extremity normal to inspection, full ROM and no clubbing, cyanosis or edema Skin no rashes or lesions noted Neuro oriented x3 Sensorium / Orientation: awake, alert and oriented to person Psych affect normal Assessment & Plan Assessment/Plan (1) Respiratory failure: Status: Acute Code(s): J96.90 - Respiratory failure, unspecified, unspecified whether with hypoxia or hypercapnia (2) COVID-19: Status: Acute Code(s): U07.1 - COVID-19 (3) Pulmonary emboli: Status: Acute Code(s): I26.99 - Other pulmonary embolism without acute cor pulmonale (4) Essential (primary) hypertension: Status: Chronic Code(s): I10 - Essential (primary) hypertension (5) Rheumatoid arthritis: Status: Chronic Code(s): M06.9 - Rheumatoid arthritis, unspecified Plan: #Acute hypoxic respiratory failure due to COVID 19 infection * still on AirVO * on IV decadron * critical care on board * pulmonology also consulted * * # Right-sided pulmonary embolism * remains on heparin drip * pulmonology on board * titrate oxygen to maintain sats >90% * * #COVID-19 pneumonia: As under respiratory failure due to COVID-19 infection #Lactic acidosis: - Lactic acid was 2.8 on admission. -This was likely due to hypoxia from respiratory failure. - Trended down to 1.6. #Hypertension: On metoprolol and ramipril. DVT prophylaxis: Not indicated as patient is on heparin drip. Code status: full code Visit Charges Inpatient E&M: 97777 Subs Hosp L3
[2021-01-05 14:39] LABS: Partial Thromboplast Time 40.1 Seconds (24.1-36.2)
--- NOTE | 2021-01-05 16:21 | CON.PCM.ID_ITS ---
Assessment & Plan Assessment/Plan (1) COVID-19: PLAN: Covid, sx started around 12/29. On dex. On hep gtt. Will start remdesivir. Encouraged her and her daughter to get vaccinated. Pt will have to schedule once she is out of quarantine (20 days from start of symptoms). Will follow, thank you (2) Respiratory failure: (3) Pulmonary emboli: HPI Consult Data Date of Consult: 01/05/21 HPI Narrative HPI Narrative: ALICE KING, is a 85 F who presented with 7 days of aches, cough, SOB, fever, fatigue. No change in taste or smell, no n/v/d. No sick contacts, has not been vaccinated. Lives with 2 daughters. One vaccinated, one prior covid infection. Pt came to ED, hypoxic, admitted to ICU, on dex. Feeling about the same. Full ROS performed and neg except as noted above. PFSH Home Medications folic acid 2 mg PO DAILY 01/08/16 [History Last Taken 01/09/16] metoprolol succinate 25 mg PO DAILY 01/08/16 [History Last Taken 01/09/16 07:00] naproxen [Naprosyn] 1 tab PO BID 01/08/16 [History Last Taken 01/09/16 07:00] ramipril 2.5 mg PO DAILY 01/08/16 [History Last Taken 01/09/16 07:00] furosemide 40 mg PO DAILY #5 tablet 01/14/16 [Rx Last Taken Unknown] dexamethasone 6 mg PO DAILY 01/04/21 [History Last Taken Unknown] fluticasone furoate-vilanterol [Breo Ellipta] 1 inh INHALATION DAILY 01/04/21 [History Last Taken Unknown] lidocaine 1 patch TOPICAL DAILY 01/04/21 [History Last Taken Unknown] Allergy/AdvReac Type Severity Reaction Status Date / Time amoxicillin Allergy Hives Verified 01/04/21 09:08 guaifenesin [From Mucinex] Allergy Hives Verified 01/04/21 09:08 loratadine [From Claritin] Allergy Other Verified 01/04/21 09:08 Penicillins Allergy Hives Verified 01/04/21 09:08 tramadol Allergy Other Verified 01/04/21 09:08 codeine AdvReac Vomiting Verified 01/04/21 09:08 Sulfa (Sulfonamide AdvReac Vomiting Verified 01/04/21 09:08 Antibiotics) Social History Smoking Status: Unknown if ever smoked Physical Exam Const alert General Appearance: cooperative HEENT normocephalic and head/scalp atraumatic Eyes PERRL and EOMs intact bilaterally Neck supple and No nodes Resp Auscultation: diminished lung sounds Cardio regular rate and regular rhythm GI normal to inspection, nondistended, normoactive bowel sounds Extremity no clubbing, cyanosis or edema Skin no rashes or lesions noted Neuro CN's II-XII intact bilaterally Lab / Micro Data Result Diagrams: 01/05/21 05:00 01/05/21 05:00 Labs: Laboratory Results - last 24 hr 01/04/21 01/04/21 01/04/21 17:00 17:00 20:45 WBC RBC Hgb Hct MCV MCH MCHC RDW Std Deviation RDW Coeff of Dinorah Plt Count MPV Immature Gran % (Auto) Neut % (Auto) Lymph % (Auto) Meagher % (Auto) Eos % (Auto) Baso % (Auto) Absolute Neuts (auto) Absolute Lymphs (auto) Nucleated RBC % APTT 77.0 H Sodium Potassium Chloride Carbon Dioxide Anion Gap BUN Creatinine Estim Creat Clear Calc Est GFR (MDRD) Af Amer Est GFR (MDRD) Non-Af BUN/Creatinine Ratio Glucose Calcium Magnesium Total Bilirubin AST ALT Alkaline Phosphatase Troponin I 0.016 < 0.015 Total Protein Albumin Globulin Albumin/Globulin Ratio 01/05/21 01/05/21 01/05/21 00:09 05:00 05:00 WBC 6.6 RBC 3.44 L Hgb 10.8 L Hct 33.9 L MCV 98.5 MCH 31.4 MCHC 31.9 L RDW Std Deviation 44.9 H RDW Coeff of Dinorah 12.4 Plt Count 154 MPV 10.0 Immature Gran % (Auto) 3.400 H Neut % (Auto) 87.0 H Lymph % (Auto) 5.8 L Meagher % (Auto) 3.4 Eos % (Auto) 0.2 Baso % (Auto) 0.2 Absolute Neuts (auto) 5.7 Absolute Lymphs (auto) 0.38 L Nucleated RBC % 0 APTT 74.1 H Sodium 135 L Potassium 4.2 Chloride 98 Carbon Dioxide 31.0 Anion Gap 6 BUN 17 Creatinine 0.62 Estim Creat Clear Calc 28.69 Est GFR (MDRD) Af Amer 117 Est GFR (MDRD) Non-Af 97 BUN/Creatinine Ratio 27.4 H Glucose 107 H Calcium 8.1 L Magnesium 2.4 Total Bilirubin 0.30 AST 14 L ALT 12 L Alkaline Phosphatase 63 Troponin I Total Protein 5.6 L Albumin 2.1 L Globulin 3.5 Albumin/Globulin Ratio 0.6 L 01/05/21 01/05/21 06:10 14:15 WBC RBC Hgb Hct MCV MCH MCHC RDW Std Deviation RDW Coeff of Dinorah Plt Count MPV Immature Gran % (Auto) Neut % (Auto) Lymph % (Auto) [place] % (Auto) Eos % (Auto) Baso % (Auto) Absolute Neuts (auto) Absolute Lymphs (auto) Nucleated RBC % APTT 51.0 H 40.1 H Sodium Potassium Chloride Carbon Dioxide Anion Gap BUN Creatinine Estim Creat Clear Calc Est GFR (MDRD) Af Amer Est GFR (MDRD) Non-Af BUN/Creatinine Ratio Glucose Calcium Magnesium Total Bilirubin AST ALT Alkaline Phosphatase Troponin I Total Protein Albumin Globulin Albumin/Globulin Ratio
[2021-01-05] MEDS: Magnesium Hydroxide 30 ML UDC PO (21:43)
[2021-01-05 22:21] LABS: Partial Thromboplast Time 64.2 Seconds (24.1-36.2)
[2021-01-05] MEDS: Ondansetron 4 MG/2 ML Vial IV (23:25)
[2021-01-05] MEDS: Famotidine 20 MG Tablet PO (23:56)
[2021-01-06] VITALS (43 sets, daily range): BP systolic 98–144; BP diastolic 38–86; PULSE 4–85; RESP 17–28; TEMP 36.1–36.6; O2SAT 81–99
[2021-01-06 06:15] LABS: Absolute Neutrophil Count 9.2 X10^3/uL (2.0-7.7); Basophil# 0.02 X10^3/uL; Basophil% 0.2 % (0-1); Eosinophil# 0.02 X10^3/uL; Eosinophils% 0.2 % (0-5); Hematocrit 34.3 % (37-47); Hemoglobin 11.1 g/dL (12.0-15.0); Mean Corp Hgb Conc 32.4 g/dL (32-36); Mean Corpuscular Hgb 31.5 pg (27.0-32.0); Mean Corpuscular Volume 97.4 fL (81-99); Mean Platelet Vol. 9.9 fl (6.2-12.0); Monocyte# 0.22 X10^3/uL; Monocyte% 2.2 % (0-10); NRBC Flagged by Analyzer 0 % (0-5); Neutrophil # 9.21 X10^3/uL (2.7-7.7); Neutrophil % 92.2 % (47-70); POSITIVE DIFFERENTIAL YES; Platelet Count 172 K/mm3 (150-450); RBC Distribution Width CV 12.2 % (11.6-14.6); RBC Distribution Width SD 43.7 fl (35.1-43.9); Red Blood Count 3.52 M/mm3 (4.2-5.4)
[2021-01-06 06:18] LABS: Differential Indicated SCAN CRITERIA MET
[2021-01-06 06:32] LABS: ALB/GLOB Ratio 0.6 RATIO (0.9-2.4); AST(SGOT) 14 U/L (15-37); Alanine Aminotransfer ALT/SGPT 11 U/L (13-56); Albumin, Serum 2.1 g/dL (3.2-5.0); Alkaline Phosphatase 65 U/L (45-117); Anion Gap 4 (5-15); BUN 22 mg/dL (7-18); BUN/Creat Ratio 32.6 RATIO (10-20); Calcium,Total 8.1 mg/dL (8.5-10.1); Chloride 100 mmol/L (98-107); Creatinine, Serum 0.67 mg/dL (0.55-1.02); EST Glomerular Filtration Rate 88 mL/min (>60); Est Glom Filt Rate - Afr Amer 107 mL/min (>60); Estimated Creatinine Clearance 28.69 ml/min; Globulin 3.6 g/dL (2.2-4.2); Glucose 86 mg/dL (74-106); Potassium 4.2 mmol/L (3.5-5.1); Protein, Total 5.7 g/dL (6.4-8.2); Sodium Level 134 mmol/L (136-145)
[2021-01-06 06:37] LABS: Partial Thromboplast Time 25.9 Seconds (24.1-36.2)
[2021-01-06] MEDS: Albuterol 2.5 MG/3 ML VIAL.NEB. INHALATION ×3 (07:24→19:44)
[2021-01-06] MEDS: Budesonide Respules 0.5 MG/2 ML AMPUL.NEB. INHALATION ×2 (07:24→19:45)
--- NOTE | 2021-01-06 08:45 | PCM.PN.INT ---
Subjective Subjective: The patient was seen and examined at the bedside this morning. Events from the last 24 hours have been reviewed. The patient is currently afebrile, hemodynamically stable and maintaining appropriate oxygen saturations on airVo heated high flow with an FiO2 requirement of 56% and flow rate of 50 L/min. The patient remains on a heparin infusion along with Decadron and remdesivir. Liver and renal function remain stable. Objective Data Objective Data The patient's most recent lab work, culture data and imaging studies have all been personally reviewed. Vital Signs: Vital Signs Temp Pulse Resp BP Pulse Ox 97.6 F L 77 22 H 116/53 L 93 01/06/21 06:14 01/06/21 08:00 01/06/21 08:00 01/06/21 08:00 01/06/21 08:00 Oxygen Flow Rate (L/min) 50 Oxygen Delivery Method Airvo Weight: 99 lb 3.328 oz Body Mass Index (BMI) 17.0 Intake & Output: Intake and Output for Last 24 Hours 01/04/21 01/05/21 01/06/21 23:59 23:59 23:59 Intake Total 664.55 / 664.55 1626.00 / 1626.00 Output Total 300 / 300 1190 / 1390 1000 / 1000 Balance 364.55 / 364.55 436.00 / 236.00 -1000 / -1000 Lab / Micro Data Attestation: I reviewed the patient's lab results. Result Diagrams: 01/06/21 06:00 01/06/21 06:00 Labs: Laboratory Results - last 24 hr 01/05/21 01/05/21 01/06/21 14:15 21:45 06:00 WBC 10.0 RBC 3.52 L Hgb 11.1 L Hct 34.3 L MCV 97.4 MCH 31.5 MCHC 32.4 RDW Std Deviation 43.7 RDW Coeff of Dinorah 12.2 Plt Count 172 MPV 9.9 Immature Gran % (Auto) 2.200 H Neut % (Auto) 92.2 H Lymph % (Auto) 3.0 L [place] % (Auto) 2.2 Eos % (Auto) 0.2 Baso % (Auto) 0.2 Absolute Neuts (auto) 9.2 H Absolute Lymphs (auto) 0.30 L Nucleated RBC % 0 APTT 40.1 H 64.2 H Sodium Potassium Chloride Carbon Dioxide Anion Gap BUN Creatinine Estim Creat Clear Calc Est GFR (MDRD) Af Amer Est GFR (MDRD) Non-Af BUN/Creatinine Ratio Glucose Calcium Total Bilirubin AST ALT Alkaline Phosphatase Total Protein Albumin Globulin Albumin/Globulin Ratio 01/06/21 01/06/21 06:00 06:00 WBC RBC Hgb Hct MCV MCH MCHC RDW Std Deviation RDW Coeff of Dinorah Plt Count MPV Immature Gran % (Auto) Neut % (Auto) Lymph % (Auto) [place] % (Auto) Eos % (Auto) Baso % (Auto) Absolute Neuts (auto) Absolute Lymphs (auto) Nucleated RBC % APTT 25.9 Sodium 134 L Potassium 4.2 Chloride 100 Carbon Dioxide 30.0 Anion Gap 4 L BUN 22 H Creatinine 0.67 Estim Creat Clear Calc 28.69 Est GFR (MDRD) Af Amer 107 Est GFR (MDRD) Non-Af 88 BUN/Creatinine Ratio 32.6 H Glucose 86 Calcium 8.1 L Total Bilirubin 0.30 AST 14 L ALT 11 L Alkaline Phosphatase 65 Total Protein 5.7 L Albumin 2.1 L Globulin 3.6 Albumin/Globulin Ratio 0.6 L Micro: Microbiology 01/04/21 09:15 Blood Culture (Wb) - Right Wrist Blood Culture - Preliminary No growth in 48 hours. 01/04/21 09:05 Blood Culture (Wb) - Anticubital Right Blood Culture - Preliminary No growth in 48 hours. 01/04/21 09:15 Nasal Secretion SARS-CoV-2 Antigen (Rapid) - Final SARS-CoV-2 (COVID 19) Physical Exam Const alert, oriented x3 and no apparent distress General Appearance: frail HEENT normocephalic and head/scalp atraumatic Eyes PERRL and EOMs intact bilaterally Resp Auscultation: diminished lung sounds; Negative for rales, rhonchi or wheezes Cardio regular rate and regular rhythm GI normal to inspection, nondistended, normoactive bowel sounds Extremity no clubbing, cyanosis or edema Skin no rashes or lesions noted Neuro oriented x3, CN's II-XII intact bilaterally and moves all extremities Psych cooperative and affect normal Assessment & Plan Assessment/Plan (1) COVID-19: (2) Respiratory failure: (3) Pulmonary emboli: PLAN: RECOMMENDATIONS: 1. Continue patient on airVo heated high flow and wean FiO2 to maintain oxygen saturations at or above 90%. 2. Continue systemic anticoagulation. Okay to transition to Eliquis from my perspective. 3. Continue Decadron to complete 10-day treatment course. 4. Continue remdesivir as ordered. Continue to monitor liver and renal function. 5. Continue bronchodilator therapy as ordered. 6. Continue Lasix per home regimen. IMPRESSIONS: 1. Acute hypoxemic respiratory failure secondary to COVID-19 pneumonia/pulmonary emboli The patient presented with approximately 1 week of symptoms which gradually worsened. She was subsequently found to have not only coronavirus but pulmonary emboli as well. The patient was subsequently placed on Decadron and systemic anticoagulation. Plan to continue heated high flow oxygen to maintain saturations at or above 90%. Liver and renal function are stable. Remdesivir will be continued accordingly. 2. Hypertension/rheumatoid arthritis/asthma/advanced age Complicates care, management, recovery and prognosis. Continue home medications as indicated. This note was generated with [employer] dictation software. It may contain incorrect words, spelling, and punctuation that were not noted in checking the note before signing. Multi Select Codes Visit Charges Visit Charges: 97564 Subs Hosp L3
[2021-01-06] MEDS: Furosemide 40 MG Tablet PO (09:33)
[2021-01-06] MEDS: Metoprolol(XL)Succ 25 MG Tablet PO (09:33)
[2021-01-06] MEDS: Famotidine 20 MG Tablet PO (09:34)
[2021-01-06] MEDS: dexAMETHasone 10 MG/ML Vial 6 MG IV (09:34)
[2021-01-06] MEDS: Folic Acid 1 MG Tablet 2 MG PO (09:34)
[2021-01-06] MEDS: 0.9% Saline Lock 10 ML Syringe IV (09:34)
[2021-01-06] MEDS: Ramipril 2.5 MG Capsule PO (09:34)
--- NOTE | 2021-01-06 09:49 | CASEMGMT ---
This RN CM participated in ICU multidisciplinary rounds. Pt is currently on airvo 55L, 55-56%. Per therapy, pt is assist x1. CM to follow. SStaten RN CM
--- NOTE | 2021-01-06 10:26 | CPS ---
increased Airvo to 75% 60L due to pt sitting on side of bed and desaturated. Sats increased to 91%.
--- NOTE | 2021-01-06 11:09 | PN.HOSP_ITS ---
Subjective Subjective: Patient seen and examined. She remains on AirVO. She tells me she feels better today and feels her breathing is improving. Review of systems is otherwise negative. She has remained hemodynamically stable, and is in negative balance by 588mls. Objective Data Objective Data Vital Signs: Vital Signs Temp Pulse Resp BP Pulse Ox 97.0 F L 85 22 H 110/38 L 82 01/06/21 09:45 01/06/21 10:25 01/06/21 10:25 01/06/21 09:45 01/06/21 10:25 Oxygen Flow Rate (L/min) 55 Oxygen Delivery Method Airvo Weight: 99 lb 3.328 oz Body Mass Index (BMI) 17.0 Intake & Output: Intake and Output for Last 24 Hours 01/04/21 01/05/21 01/06/21 23:59 23:59 23:59 Intake Total 664.55 / 664.55 1626.00 / 1626.00 Output Total 300 / 300 1190 / 1390 1000 / 1000 Balance 364.55 / 364.55 436.00 / 236.00 -1000 / -1000 Lab / Micro Data Result Diagrams: 01/06/21 06:00 01/06/21 06:00 Labs: Laboratory Results - last 24 hr 01/05/21 01/05/21 01/06/21 14:15 21:45 06:00 WBC 10.0 RBC 3.52 L Hgb 11.1 L Hct 34.3 L MCV 97.4 MCH 31.5 MCHC 32.4 RDW Std Deviation 43.7 RDW Coeff of Dinorah 12.2 Plt Count 172 MPV 9.9 Immature Gran % (Auto) 2.200 H Neut % (Auto) 92.2 H Lymph % (Auto) 3.0 L [place] % (Auto) 2.2 Eos % (Auto) 0.2 Baso % (Auto) 0.2 Absolute Neuts (auto) 9.2 H Absolute Lymphs (auto) 0.30 L Nucleated RBC % 0 APTT 40.1 H 64.2 H Sodium Potassium Chloride Carbon Dioxide Anion Gap BUN Creatinine Estim Creat Clear Calc Est GFR (MDRD) Af Amer Est GFR (MDRD) Non-Af BUN/Creatinine Ratio Glucose Calcium Total Bilirubin AST ALT Alkaline Phosphatase Total Protein Albumin Globulin Albumin/Globulin Ratio 01/06/21 01/06/21 06:00 06:00 WBC RBC Hgb Hct MCV MCH MCHC RDW Std Deviation RDW Coeff of Dinorah Plt Count MPV Immature Gran % (Auto) Neut % (Auto) Lymph % (Auto) [place] % (Auto) Eos % (Auto) Baso % (Auto) Absolute Neuts (auto) Absolute Lymphs (auto) Nucleated RBC % APTT 25.9 Sodium 134 L Potassium 4.2 Chloride 100 Carbon Dioxide 30.0 Anion Gap 4 L BUN 22 H Creatinine 0.67 Estim Creat Clear Calc 28.69 Est GFR (MDRD) Af Amer 107 Est GFR (MDRD) Non-Af 88 BUN/Creatinine Ratio 32.6 H Glucose 86 Calcium 8.1 L Total Bilirubin 0.30 AST 14 L ALT 11 L Alkaline Phosphatase 65 Total Protein 5.7 L Albumin 2.1 L Globulin 3.6 Albumin/Globulin Ratio 0.6 L Micro: Microbiology 01/04/21 09:15 Blood Culture (Wb) - Right Wrist Blood Culture - Preliminary No growth in 48 hours. 01/04/21 09:05 Blood Culture (Wb) - Anticubital Right Blood Culture - Pre liminary No growth in 48 hours. 01/04/21 09:15 Nasal Secretion SARS-CoV-2 Antigen (Rapid) - Final SARS-CoV-2 (COVID 19) Physical Exam Const alert, oriented x3 and no apparent distress Orientation / Consciousness: lethargic Exam Limitations: no limitations Nutritional Appearance: cachectic HEENT head/scalp atraumatic and hearing grossly normal bilaterally Eyes PERRL, EOMs intact bilaterally and conjunctivae normal Neck no lymphadenopathy Resp Resp Narrative: on AirVo. diminished breath sounds bibasally, few crackles bilaterally. Cardio regular rate, regular rhythm, S1 normal heart sound, S2 normal heart sound and no gallops GI normal to inspection, nondistended, normoactive bowel sounds, soft to palpation, non-tender and non-distended Extremity normal to inspection, full ROM and no clubbing, cyanosis or edema Skin no rashes or lesions noted Neuro oriented x3 Sensorium / Orientation: awake, alert and oriented to person Psych affect normal Assessment & Plan Assessment/Plan (1) COVID-19: (2) Respiratory failure: (3) Pulmonary emboli: (4) Essential (primary) hypertension: (5) Rheumatoid arthritis: PLAN: #Acute hypoxic respiratory failure due to COVID 19 infection * still on AirVO * on IV decadron * critical care on board * pulmonology on board * also on lasix 40mg daily * breathing treatment with bronchodilators #Right-sided pulmonary embolism * remains on heparin drip * pulmonology on board * titrate oxygen to maintain sats >90% * will switch from heparin drip to eliquis. * #COVID-19 pneumonia: As under respiratory failure due to COVID-19 infection #Lactic acidosis: - resolved. #Hypertension: On metoprolol and ramipril. DVT prophylaxis: Not indicated as patient is on heparin drip. will switch to therapeutic eliquis dose. Code status: full code Visit Charges Inpatient E&M: 72197 Subs Hosp L3
[2021-01-06] MEDS: APIXABAN 5 MG TABLET 10 MG PO ×2 (12:51→19:51)
[2021-01-07] VITALS (33 sets, daily range): BP systolic 94–130; BP diastolic 41–78; PULSE 56–88; RESP 16–33; TEMP 36–37.2; O2SAT 90–98
[2021-01-07 05:05] LABS: Absolute Lymphocyte Count 0.34 X10^3/uL (0.83-4.51); Basophil# 0.02 X10^3/uL; Basophil% 0.2 % (0-1); Hematocrit 33.2 % (37-47); Hemoglobin 10.7 g/dL (12.0-15.0); Lymphocyte # 0.34 X10^3/ul (0.83-4.51); Lymphocyte % 2.9 % (19-41); Mean Corp Hgb Conc 32.2 g/dL (32-36); Mean Corpuscular Hgb 31.9 pg (27.0-32.0); Mean Corpuscular Volume 99.1 fL (81-99); Mean Platelet Vol. 10.3 fl (6.2-12.0); Monocyte% 2.5 % (0-10); NRBC Flagged by Analyzer 0 % (0-5); Neutrophil # 10.95 X10^3/uL (2.7-7.7); POSITIVE DIFFERENTIAL YES; Platelet Count 198 K/mm3 (150-450); RBC Distribution Width CV 12.3 % (11.6-14.6); RBC Distribution Width SD 44.6 fl (35.1-43.9); Red Blood Count 3.35 M/mm3 (4.2-5.4); White Blood Count 11.9 K/mm3 (4.4-11.0)
[2021-01-07 05:08] LABS: Differential Indicated SCAN CRITERIA MET
[2021-01-07 05:21] LABS: ALB/GLOB Ratio 0.6 RATIO (0.9-2.4); AST(SGOT) 20 U/L (15-37); Alanine Aminotransfer ALT/SGPT 13 U/L (13-56); Albumin, Serum 2.1 g/dL (3.2-5.0); Alkaline Phosphatase 69 U/L (45-117); Anion Gap 4 (5-15); BUN 36 mg/dL (7-18); BUN/Creat Ratio 49.5 RATIO (10-20); Calcium,Total 7.9 mg/dL (8.5-10.1); Chloride 99 mmol/L (98-107); Creatinine, Serum 0.73 mg/dL (0.55-1.02); EST Glomerular Filtration Rate 81 mL/min (>60); Est Glom Filt Rate - Afr Amer 97 mL/min (>60); Estimated Creatinine Clearance 28.69 ml/min; Globulin 3.6 g/dL (2.2-4.2); Glucose 105 mg/dL (74-106); Protein, Total 5.7 g/dL (6.4-8.2); Sodium Level 138 mmol/L (136-145)
[2021-01-07] MEDS: Budesonide Respules 0.5 MG/2 ML AMPUL.NEB. INHALATION ×2 (07:35→19:40)
[2021-01-07] MEDS: Albuterol 2.5 MG/3 ML VIAL.NEB. INHALATION ×3 (07:36→19:40)
--- NOTE | 2021-01-07 07:38 | PCM.PN.INT ---
Subjective Subjective: The patient was seen and examined at the bedside this morning. Events from the last 24 hours have been reviewed. The patient is currently afebrile, hemodynamically stable and maintaining appropriate oxygen saturations on Airvo heated high flow with an FiO2 requirement of 60% and flow rate of 50 L/min. The patient remains on a heparin infusion along with Decadron and remdesivir. Liver and renal function remain stable. The patient is currently documented to be overall net -1.6 L for the hospital admission. Objective Data Objective Data The patient's most recent lab work, culture data and imaging studies have all been personally reviewed. Vital Signs: Vital Signs Temp Pulse Resp BP Pulse Ox 96.8 F L 58 L 21 H 124/62 H 96 01/07/21 05:00 01/07/21 07:00 01/07/21 07:00 01/07/21 07:00 01/07/21 07:00 Oxygen Flow Rate (L/min) 50 Oxygen Delivery Method Airvo Weight: 102 lb 1.184 oz Body Mass Index (BMI) 17.0 Intake & Output: Intake and Output for Last 24 Hours 01/05/21 01/06/21 01/07/21 23:59 23:59 23:59 Intake Total 1626.00 / 1626.00 370 / 370 120 / 120 Output Total 1190 / 1390 2730 / 2730 250 / 250 Balance 436.00 / 236.00 -2360 / -2360 -130 / -130 Lab / Micro Data Attestation: I reviewed the patient's lab results. Result Diagrams: 01/07/21 04:45 01/07/21 04:45 Labs: Laboratory Results - last 24 hr 01/07/21 01/07/21 04:45 04:45 WBC 11.9 H RBC 3.35 L Hgb 10.7 L Hct 33.2 L MCV 99.1 H MCH 31.9 MCHC 32.2 RDW Std Deviation 44.6 H RDW Coeff of Dinorah 12.3 Plt Count 198 MPV 10.3 Immature Gran % (Auto) 2.400 H Neut % (Auto) 92.0 H Lymph % (Auto) 2.9 L [place] % (Auto) 2.5 Eos % (Auto) 0.0 Baso % (Auto) 0.2 Absolute Neuts (auto) 11.0 H Absolute Lymphs (auto) 0.34 L Nucleated RBC % 0 Sodium 138 Potassium 4.0 Chloride 99 Carbon Dioxide 35.0 H Anion Gap 4 L BUN 36 H Creatinine 0.73 Estim Creat Clear Calc 28.69 Est GFR (MDRD) Af Amer 97 Est GFR (MDRD) Non-Af 81 BUN/Creatinine Ratio 49.5 H Glucose 105 Calcium 7.9 L Total Bilirubin 0.30 AST 20 ALT 13 Alkaline Phosphatase 69 Total Protein 5.7 L Albumin 2.1 L Globulin 3.6 Albumin/Globulin Ratio 0.6 L Micro: Microbiology 01/04/21 09:15 Blood Culture (Wb) - Right Wrist Blood Culture - Preliminary No growth in 48 hours. 01/04/21 09:05 Blood Culture (Wb) - Anticubital Right Blood Culture - Preliminary No growth in 48 hours. 01/04/21 09:15 Nasal Secretion SARS-CoV-2 Antigen (Rapid) - Final SARS-CoV-2 (COVID 19) Physical Exam Const alert and oriented x3 General Appearance: cooperative HEENT normocephalic and head/scalp atraumatic Eyes PERRL and EOMs intact bilaterally Resp normal respiratory effort Auscultation: diminished lung sounds; Negative for rales, rhonchi or wheezes Cardio regular rate and regular rhythm GI normal to inspection, nondistended, normoactive bowel sounds Extremity no clubbing, cyanosis or edema Skin no rashes or lesions noted Neuro oriented x3, CN's II-XII intact bilaterally and moves all extremities Psych cooperative and affect normal Assessment & Plan Assessment/Plan (1) COVID-19: (2) Respiratory failure: (3) Pulmonary emboli: PLAN: RECOMMENDATIONS: 1. Continue patient on airVo heated high flow and wean FiO2 to maintain oxygen saturations at or above 90%. 2. Continue Eliquis. 3. Continue Decadron to complete 10-day treatment course. 4. Continue remdesivir as ordered. Continue to monitor liver and renal function. 5. Continue bronchodilator therapy as ordered. 6. Continue Lasix per home regimen. IMPRESSIONS: 1. Acute hypoxemic respiratory failure secondary to COVID-19 pneumonia/pulmonary emboli The patient presented with approximately 1 week of symptoms which gradually worsened. She was subsequently found to have not only coronavirus but pulmonary emboli as well. The patient was subsequently placed on Decadron and systemic anticoagulation. Plan to continue heated high flow oxygen to maintain saturations at or above 90%. Liver and renal function are stable. Remdesivir will be continued accordingly. 2. Hypertension/rheumatoid arthritis/asthma/advanced age Complicates care, management, recovery and prognosis. Continue home medications as indicated. This note was generated with [employer] software. It may contain incorrect words, spelling, and punctuation that were not noted in checking the note before signing. Visit Charges Inpatient E&M: 56627 Subs Hosp L3
[2021-01-07] MEDS: Furosemide 40 MG Tablet PO (09:34)
[2021-01-07] MEDS: Metoprolol(XL)Succ 25 MG Tablet PO (09:34)
[2021-01-07] MEDS: Famotidine 20 MG Tablet PO (09:34)
[2021-01-07] MEDS: Folic Acid 1 MG Tablet 2 MG PO (09:34)
[2021-01-07] MEDS: APIXABAN 5 MG TABLET 10 MG PO ×2 (09:34→20:52)
[2021-01-07] MEDS: dexAMETHasone 10 MG/ML Vial 6 MG IV (09:34)
[2021-01-07] MEDS: Ramipril 2.5 MG Capsule PO (09:34)
--- NOTE | 2021-01-07 13:20 | CASEMGMT ---
[facility] palliative screen completed and pt does not meet criteria at this time. SStaten RN CM
--- NOTE | 2021-01-07 13:53 | PCM.PN.ID ---
Physical Exam Narrative Feeling better, no fever, mild cough Const alert General Appearance: cooperative Resp Auscultation: diminished lung sounds Cardio regular rate and regular rhythm GI normal to inspection, nondistended, normoactive bowel sounds Skin no rashes or lesions noted ID ID: Route of nutrition/ use of supplements: [] Nutritional Intake: [] IV Site: [] Santiago Catheter: [] Assessment & Plan Assessment/Plan (1) COVID-19: PLAN: Covid, sx started around 12/29. On dex. On remdesivir and therapeutic anticoagulation. Encouraged her and her daughter to get vaccinated. Pt will have to schedule once she is out of quarantine (20 days from start of symptoms). Reviewed labs. Will follow (2) Respiratory failure: (3) Pulmonary emboli:
--- NOTE | 2021-01-07 15:00 | PN.HOSP_ITS ---
Subjective Subjective: Patient seen and examined. She feels well and has no complaints. Shortness of breath has improved. Review of systems was otherwise negative. She has remained hemodynamically stable. She is on 6L of oxygen by nasal canula. Objective Data Objective Data Vital Signs: Vital Signs Temp Pulse Resp BP Pulse Ox 98.9 F 71 27 H 94/78 95 01/07/21 14:31 01/07/21 14:31 01/07/21 14:31 01/07/21 14:31 01/07/21 14:31 Oxygen Flow Rate (L/min) 6 Oxygen Delivery Method Airvo Weight: 102 lb 1.184 oz Body Mass Index (BMI) 17.0 Intake & Output: Intake and Output for Last 24 Hours 01/05/21 01/06/21 01/07/21 23:59 23:59 23:59 Intake Total 1626.00 / 1626.00 370 / 370 570 / 570 Output Total 1190 / 1390 2730 / 2730 250 / 250 Balance 436.00 / 236.00 -2360 / -2360 320 / 320 Lab / Micro Data Result Diagrams: 01/07/21 04:45 01/07/21 04:45 Labs: Laboratory Results - last 24 hr 01/07/21 01/07/21 04:45 04:45 WBC 11.9 H RBC 3.35 L Hgb 10.7 L Hct 33.2 L MCV 99.1 H MCH 31.9 MCHC 32.2 RDW Std Deviation 44.6 H RDW Coeff of Dinorah 12.3 Plt Count 198 MPV 10.3 Immature Gran % (Auto) 2.400 H Neut % (Auto) 92.0 H Lymph % (Auto) 2.9 L [place] % (Auto) 2.5 Eos % (Auto) 0.0 Baso % (Auto) 0.2 Absolute Neuts (auto) 11.0 H Absolute Lymphs (auto) 0.34 L Nucleated RBC % 0 Sodium 138 Potassium 4.0 Chloride 99 Carbon Dioxide 35.0 H Anion Gap 4 L BUN 36 H Creatinine 0.73 Estim Creat Clear Calc 28.69 Est GFR (MDRD) Af Amer 97 Est GFR (MDRD) Non-Af 81 BUN/Creatinine Ratio 49.5 H Glucose 105 Calcium 7.9 L Total Bilirubin 0.30 AST 20 ALT 13 Alkaline Phosphatase 69 Total Protein 5.7 L Albumin 2.1 L Globulin 3.6 Albumin/Globulin Ratio 0.6 L Micro: Microbiology 01/04/21 09:15 Blood Culture (Wb) - Right Wrist Blood Culture - Preliminary No growth in 48 hours. 01/04/21 09:05 Blood Culture (Wb) - Anticubital Right Blood Culture - Preliminary No growth in 48 hours. 01/04/21 09:15 Nasal Secretion SARS-CoV-2 Antigen (Rapid) - Final SARS-CoV-2 (COVID 19) Physical Exam Const alert, oriented x3 and no apparent distress Exam Limitations: no limitations Nutritional Appearance: cachectic HEENT head/scalp atraumatic and hearing grossly normal bilaterally Eyes PERRL, EOMs intact bilaterally and conjunctivae normal Neck no lymphadenopathy Resp Resp Narrative: on 6L of oxygen by nasal canula. diminished breath sounds bibasally, few crackles bilaterally. Cardio regular rate, regular rhythm, S1 normal heart sound, S2 normal heart sound and no gallops GI normal to inspection, nondistended, normoactive bowel sounds, soft to palpation, non-tender and non-distended Extremity normal to inspection, full ROM and no clubbing, cyanosis or edema Skin no rashes or lesions noted Neuro oriented x3 Sensorium / Orientation: awake, alert and oriented to person Psych affect normal Assessment & Plan Assessment/Plan (1) COVID-19: (2) Respiratory failure: (3) Pulmonary emboli: (4) Essential (primary) hypertension: (5) Rheumatoid arthritis: PLAN: #Acute hypoxic respiratory failure due to COVID 19 infection * now on 6L of oxygen. * on IV decadron * critical care on board * pulmonology on board * also on lasix 40mg daily * breathing treatment with bronchodilators #Right-sided pulmonary embolism * now on PO eliquis. * titrate oxygen to maintain sats >90% * will order 2D echo * #COVID-19 pneumonia: As under respiratory failure due to COVID-19 infection #Lactic acidosis: - resolved. #Hypertension: On metoprolol and ramipril. DVT prophylaxis:on eliquis therapeutic dose for treatment of PE. Code status: full code Visit Charges Inpatient E&M: 97137 Subs Hosp L3
[2021-01-07] MEDS: Polyethylene Glycol 3350 17 GM PACKET PO (17:01)
[2021-01-08] VITALS (63 sets, daily range): BP systolic 48–164; BP diastolic 27–84; PULSE 49–95; RESP 12–38; TEMP 35.9–37.2; O2SAT 80–100; BMI 17.6
--- NOTE | 2021-01-08 03:35 | CPS ---
pt unknowingly removed nasal cannula from nose and SPO2 dropped to 69%, placed on 12 lpm O2 to recover.
[2021-01-08 05:17] LABS: Absolute Lymphocyte Count 0.45 X10^3/uL (0.83-4.51); Absolute Neutrophil Count 10.2 X10^3/uL (2.0-7.7); Basophil# 0.02 X10^3/uL; Basophil% 0.2 % (0-1); Eosinophils% 0.9 % (0-5); Hematocrit 38.4 % (37-47); Hemoglobin 12.3 g/dL (12.0-15.0); Lymphocyte # 0.45 X10^3/ul (0.83-4.51); Lymphocyte % 3.9 % (19-41); Mean Corpuscular Hgb 31.8 pg (27.0-32.0); Mean Corpuscular Volume 99.2 fL (81-99); Mean Platelet Vol. 10.2 fl (6.2-12.0); Monocyte# 0.24 X10^3/uL; Monocyte% 2.1 % (0-10); NRBC Flagged by Analyzer 0 % (0-5); Neutrophil # 10.22 X10^3/uL (2.7-7.7); Neutrophil % 88.6 % (47-70); POSITIVE DIFFERENTIAL YES; Platelet Count 225 K/mm3 (150-450); RBC Distribution Width CV 12.5 % (11.6-14.6); RBC Distribution Width SD 45.1 fl (35.1-43.9); Red Blood Count 3.87 M/mm3 (4.2-5.4); White Blood Count 11.5 K/mm3 (4.4-11.0)
[2021-01-08 05:20] LABS: Differential Indicated SCAN CRITERIA MET
[2021-01-08 05:34] LABS: ALB/GLOB Ratio 0.5 RATIO (0.9-2.4); AST(SGOT) 18 U/L (15-37); Alanine Aminotransfer ALT/SGPT 16 U/L (13-56); Albumin, Serum 2.1 g/dL (3.2-5.0); Alkaline Phosphatase 77 U/L (45-117); Anion Gap 4 (5-15); BUN 33 mg/dL (7-18); BUN/Creat Ratio 41.7 RATIO (10-20); Calcium,Total 8.1 mg/dL (8.5-10.1); Chloride 98 mmol/L (98-107); Creatinine, Serum 0.79 mg/dL (0.55-1.02); EST Glomerular Filtration Rate 73 mL/min (>60); Est Glom Filt Rate - Afr Amer 89 mL/min (>60); Estimated Creatinine Clearance 29.77 ml/min; Globulin 3.9 g/dL (2.2-4.2); Glucose 92 mg/dL (74-106); Potassium 4.1 mmol/L (3.5-5.1); Sodium Level 137 mmol/L (136-145)
[2021-01-08] MEDS: Albuterol 2.5 MG/3 ML VIAL.NEB. INHALATION ×3 (05:35→19:21)
--- NOTE | 2021-01-08 05:59 | RAD_ITS ---
STUDY: X-RAY CHEST REASON FOR EXAM: Female, 85 years old. Increased SOB TECHNIQUE: Single AP portable view of the chest. COMPARISON: 01/04/2021 FINDINGS: Increase in alveolar opacities in both lungs particularly in the right lung consistent with worsening pneumonia. There is no demonstrated pleural abnormality. Normal size heart. Normal mediastinum and laney. Normal visualized pulmonary arteries. Normal visualized aortic arch and descending thoracic aorta. Normal visualized thoracic spine. Normal visualized ribs, clavicles, and shoulders. There is no demonstrated abnormality of the visualized soft tissue structures of the upper abdomen. RAD/Chest 1 View (Portable) IMPRESSION: Worsening bilateral pneumonia. Electronically Signed: Jimenez Martin MD at 6:44 EDT Tel , Service support ,
--- NOTE | 2021-01-08 06:40 | PN.CC_ITS ---
Subjective Subjective: The patient was seen and examined at the bedside this morning. Events from the last 24 hours have been reviewed. The patient is currently afebrile and hemodynamically stable. At approximately 0500 this morning, the patient decompensated from a respiratory perspective and went from requiring nasal cannula oxygen to heated high flow to BiPAP. She is currently tachypneic with marginal oxygen saturations on BiPAP with an FiO2 requirement of 100%. She is currently documented to be overall net -2.4 L for the hospital admission. The patient remains on remdesivir, Decadron and Eliquis. In addition, she has been maintained on her outpatient p.o. diuretic regimen. Repeat x-ray obtained this morning revealed interval worsening in the patient's airspace opacities, particularly throughout the right hemithorax. I did speak with the patient this morning while she was on BiPAP and she did confirm her desire to be intubated. Her family was also contacted and also confirmed their desire to proceed with intubation. Intubation Indication: Impending respiratory failure Consent was obtained from: Patient The patient was placed in the appropriate sniffing position. Preoxygenated sed ation via BiPAP was provided for a minimum of 3 minutes. The patient had continuous cardiac as well as pulse oximetry monitoring during the procedure. Procedure sedation was provided by the administration of 2 mg of Versed and 20 mg of etomidate. Direct laryngoscopy was then performed using a number 3 MAC blade, which revealed a grade 1 view. A 7.5 mm endotracheal tube was visualized advancing between the cords to the level of 22 cm at the lip. The stylette was then removed and discarded. Tube placement was confirmed by fogging in the tube along with equal and bilateral breath sounds. Colorimetric change was visualized on the CO2 meter. The cuff was then inflated and the tube secured using a commercially available device. A good pulse oximetry waveform was seen on the monitor throughout the procedure. A portable chest x-ray has been ordered to confirm appropriate placement. The patient tolerated the procedure well. Objective Data Objective Data The patient's most recent lab work, culture data and imaging studies have all been personally reviewed. Vital Signs: Vital Signs Temp Pulse Resp BP Pulse Ox 98.3 F 95 38 H 98/46 L 88 01/08/21 01:00 01/08/21 06:00 01/08/21 06:00 01/08/21 06:00 01/08/21 06:00 Oxygen Flow Rate (L/min) 12 Oxygen Delivery Method Airvo Weight: 102 lb 15.294 oz Body Mass Index (BMI) 17.0 Intake & Output: Intake and Output for Last 24 Hours 01/06/21 01/07/21 01/08/21 23:59 23:59 23:59 Intake Total 370 / 370 580 / 580 0 / 0 Output Total 2730 / 2730 900 / 1300 550 / 550 Balance -2360 / -2360 -320 / -720 -550 / -550 Lab / Micro Data Attestation: I reviewed the patient's lab results. Result Diagrams: 01/08/21 05:05 01/08/21 05:05 Labs: Laboratory Results - last 24 hr 01/08/21 01/08/21 05:05 05:05 WBC 11.5 H RBC 3.87 L Hgb 12.3 Hct 38.4 MCV 99.2 H MCH 31.8 MCHC 32.0 RDW Std Deviation 45.1 H RDW Coeff of Dinorah 12.5 Plt Count 225 MPV 10.2 Immature Gran % (Auto) 4.300 H Neut % (Auto) 88.6 H Lymph % (Auto) 3.9 L [place] % (Auto) 2.1 Eos % (Auto) 0.9 Baso % (Auto) 0.2 Absolute Neuts (auto) 10.2 H Absolute Lymphs (auto) 0.45 L Nucleated RBC % 0 Sodium 137 Potassium 4.1 Chloride 98 Carbon Dioxide 35.0 H Anion Gap 4 L BUN 33 H Creatinine 0.79 Estim Creat Clear Calc 29.77 Est GFR (MDRD) Af Amer 89 Est GFR (MDRD) Non-Af 73 BUN/Creatinine Ratio 41.7 H Glucose 92 Calcium 8.1 L Total Bilirubin 0.50 AST 18 ALT 16 Alkaline Phosphatase 77 Total Protein 6.0 L Albumin 2.1 L Globulin 3.9 Albumin/Globulin Ratio 0.5 L Micro: Microbiology 01/04/21 09:15 Blood Culture (Wb) - Right Wrist Blood Culture - Preliminary No growth in 48 hours. 01/04/21 09:05 Blood Culture (Wb) - Anticubital Right Blood Culture - Preli minary No growth in 48 hours. 01/04/21 09:15 Nasal Secretion SARS-CoV-2 Antigen (Rapid) - Final SARS-CoV-2 (COVID 19) Physical Exam Const alert General Appearance: cooperative, in distress, lethargic, ill appearing and frail HEENT normocephalic and head/scalp atraumatic Eyes PERRL and EOMs intact bilaterally Resp Effort and Inspection: tachypneic, labored and uses accessory muscles Auscultation: diminished lung sounds; Negative for rales, rhonchi or wheezes Cardio regular rate and regular rhythm GI normal to inspection, nondistended, normoactive bowel sounds Extremity no clubbing, cyanosis or edema Skin no rashes or lesions noted Neuro oriented x3, CN's II-XII intact bilaterally and moves all extremities Psych cooperative and affect normal Assessment & Plan Assessment/Plan (1) COVID-19: (2) Respiratory failure: (3) Pulmonary emboli: PLAN: RECOMMENDATIONS: 1. Proceed with intubation, given tenuous respiratory status despite maximal BiPAP support. 2. Obtain and send sputum for culture. 3. Obtain arterial blood gas 1 [address] intubation[address]. Place PICC line. 5. Start empiric antimicrobials. 6. Discontinue diuretic and antihypertensives. 7. Continue Eliquis. 8. Continue Decadron to complete 10-day treatment course. 9. Continue remdesivir as ordered. Continue to monitor liver and renal function. IMPRESSIONS: 1. Acute hypoxemic respiratory failure secondary to COVID-19 pneumonia/pulmonar y emboli The patient presented with approximately 1 week of symptoms which gradually wor sened. She was subsequently found to have not only coronavirus but pulmonary emboli as well. The patient was subsequently placed on Decadron and systemic anticoagulation. For several days, the patient did well on heated high flow oxygen. However, on the morning of January 08, she decompensated from a respiratory perspective. Noninvasive positive pressure ventilation proved to be unsuccessful. Therefore, the patient was emergently intubated. Chest x-ray did reveal worsening bilateral infiltrates, particularly throughout the right hemithorax. Accordingly, the patient will be continued on remdesivir and Decadron, but will also be started on broad-spectrum antimicrobials as well. Will obtain and send sputum for culture. Plan to wean FiO2 to maintain saturations at or above 90%. Continue systemic anticoagulation with Eliquis as ordered. 2. Hypertension/rheumatoid arthritis/asthma/advanced age Complicates care, management, recovery and prognosis. Diuretics and antihypertensives to remain on hold. Nutrition consultation for tube feed recommendations will be obtained. TIME: 45 minutes of critical care time, inclusive of procedures, was spent addressing the patient's acute hypoxemic respiratory failure, COVID-19 pneumonia, pulmonary emboli, review of all data and collaboration with the care team. ([id number]) Procedures Pulmonary 9xxxx: [id number] Critical care first hour
[2021-01-08] MEDS: Midazolam 2 MG/2 ML Syringe IV (07:58)
[2021-01-08] MEDS: Etomidate 20 MG/10 ML Vial IV (07:59)
--- NOTE | 2021-01-08 08:02 | RAD_ITS ---
We are attempting to reach an attending provider to discuss findings. An addendum with communication details will be sent when the communication is complete. STUDY: X-RAY CHEST REASON FOR EXAM: Female, 85 years old. Status post intubation. TECHNIQUE: Single AP portable view of the chest. COMPARISON: 01/20/2021, 6:00 AM. FINDINGS: Endotracheal tube with its tip approximately 3.8 cm proximal to the carter. Nasogastric tube with the tip at the gastroesophageal junction region that should be advanced. The sidehole is in the distal esophagus. Patchy bilateral infiltrates worse on the right side are again seen. There is no demonstrated pleural abnormality. Normal size heart. Normal mediastinum and laney. Normal visualized pulmonary arteries. There is atherosclerotic calcification of the aortic arch with tortuosity. Stable osseous structures. There is no demonstrated abnormality of the visualized soft tissue structures of the upper abdomen. RAD/Chest 1 View (Portable) IMPRESSION: 1. Status post intubation. 2. Nasogastric tube with tip at the gastroesophageal junction and should be advanced. 3. Bilateral infiltrates worse on the right side unchanged. Electronically Signed: Meek Vasquez MD at 9:14 EDT Tel , Service support ,
[2021-01-08] MEDS: Propofol 10MG/Ml 1,000 MG/100 ML Bottle 2.8 MG CONT INF (08:05)
--- NOTE | 2021-01-08 08:05 | NURSING ---
0758-2mg versed given 0759-20mg etomidate given 0800-Intubated by , 7.5ETT, 22 at lip, + color change, + bilat breath sounds 0805-OGT inserted
[2021-01-08 08:27] LABS: BNP,B-Type NATRIURETIC PEPTIDE 130.9 pg/mL (0-100)
--- NOTE | 2021-01-08 08:31 | RAD_ITS ---
STUDY: X-RAY CHEST REASON FOR EXAM: Female, 85 years old. OGT placement -- EDIT FROM ABD TECHNIQUE: Single AP portable view of the chest. COMPARISON: 01/20/2021, 8:15 AM. FINDINGS: Nasogastric tube has been advanced with the tip below the level of diaphragm. Endotracheal tube in stable position. Bilateral infiltrates worse on the right side unchanged. There is no demonstrated pleural abnormality. Normal size heart. Normal mediastinum and laney. Normal visualized pulmonary arteries. There is atherosclerotic calcification of the aortic arch with tortuosity. Stable osseous structures. There is no demonstrated abnormality of the visualized soft tissue structures of the upper abdomen. RAD/Chest 1 View (Portable) IMPRESSION: Status post adjustment of nasogastric tube with the tip below the level of the diaphragm. Otherwise no significant change. Electronically Signed: Meek Vasquez MD at 9:18 EDT Tel , Service support ,
[2021-01-08] MEDS: 0.9% Saline Lock 10 ML Syringe IV ×2 (08:37→16:18)
[2021-01-08 08:41] LABS: Allen Test Positive; Base Excess 5 mmol/L (-2 to +2); Bicarbonate 28.8 mmol/L (22-26); Blood Gas Specimen Type ART; FI02 100; Mode AC; O2 Delivery Device Adult Vent; PEEP 8; PO2 56 mmHG (75-100); RR 14; SITE R Radial; SO2 90 % (95-99); Total Carbon Dioxide 30 mmol/L; Vt 400; pH 7.44 (7.35-7.45)
[2021-01-08] MEDS: 0.9% Normal Saline 1,000 ML 15 ML IV (08:52)
[2021-01-08 09:01] LABS: CPK Total, Creatine Kinase 34 U/L (26-192); Triglycerides 111 mg/dL
--- NOTE | 2021-01-08 09:21 | PCM.NTREPORT ---
Nutrition Therapy Report - History Nutrition Services has been consulted to:: Manage enteral nutrition Current diet / nutrition support order:: NPO with OG in place. - Anthropometric Measurements Height:: 5 ft 4 in Weight:: 46.7 kg Body Mass Index (BMI):: 17.6 - Relevant Labs Relevant Labs:: WBC 11.5 K/mm3 (4.4-11.0) H 01/08/21 05:05 RBC 3.87 M/mm3 (4.2-5.4) L 01/08/21 05:05 Hgb 10.7 g/dL (12.0-15.0) L 01/07/21 04:45 Hct 33.2 % (37-47) L 01/07/21 04:45 MCV 99.2 fL (81-99) H 01/08/21 05:05 MCHC 31.9 g/dL (32-36) L 01/05/21 05:00 RDW Std Deviation 45.1 fl (35.1-43.9) H 01/08/21 05:05 Immature Gran % (Auto) 4.300 % (0.0-0.9) H 01/08/21 05:05 Neut % (Auto) 88.6 % (47-70) H 01/08/21 05:05 Lymph % (Auto) 3.9 % (19-41) L 01/08/21 05:05 Absolute Neuts (auto) 10.2 X10^3/uL (2.0-7.7) H 01/08/21 05:05 Absolute Lymphs (auto) 0.45 X10^3/uL (0.83-4.51) L 01/08/21 05:05 APTT 64.2 Seconds (24.1-36.2) H 01/05/21 21:45 Fibrinogen 465 mg/dl (203-444) H 01/04/21 09:05 D-Dimer Quant (PE/DVT) > 20.00 FEU/ug/m (0.27-0.49) H* 01/04/21 09:05 Sodium 134 mmol/L (136-145) L 01/06/21 06:00 Carbon Dioxide 35.0 mmol/L (21.0-32.0) H 01/08/21 05:05 Anion Gap 4 (5-15) L 01/08/21 05:05 BUN 33 mg/dL (7-18) H 01/08/21 05:05 BUN/Creatinine Ratio 41.7 RATIO (10-20) H 01/08/21 05:05 Glucose 107 mg/dL (74-106) H 01/05/21 05:00 Lactic Acid 2.8 mmol/L (0.4-1.9) H* 01/04/21 09:05 Calcium 8.1 mg/dL (8.5-10.1) L 01/08/21 05:05 AST 14 U/L (15-37) L 01/06/21 06:00 ALT 11 U/L (13-56) L 01/06/21 06:00 Lactate Dehydrogenase 368 U/L (84-246) H 01/04/21 09:05 Total Creatine Kinase 17 U/L (26-192) L 01/04/21 09:05 C-React Prot Ext Range 45.50 mg/L (0.0-3.0) H 01/04/21 09:05 B-Natriuretic Peptide 130.9 pg/mL (0-100) H 01/08/21 05:00 Total Protein 6.0 g/dL (6.4-8.2) L 01/08/21 05:05 Albumin 2.1 g/dL (3.2-5.0) L 01/08/21 05:05 Albumin/Globulin Ratio 0.5 RATIO (0.9-2.4) L 01/08/21 05:05 - Assessment Food / Nutrition-Related History:: Currently in isolation d/t COVID-19. Repeat x-ray obtained this morning revealed interval worsening in the pt airspace opacities, particularly throughout the right hemithorax. Intubated d/t pending respiratory failure. Per Dr. Lai matt to order & start TF this day. Wt increase 0.4 kg since previous review. Pt w/ constipation- stool agent provided. BS present, abdomen soft. Pt with fair intake prior to NPO status & intubation. - Nutrition Diagnosis Problem / Etiology / Signs & Symptoms (PES):: Severe, acute malnutrition r/t inadequate energy intake during acute illness as evidenced by unintentional wt loss of 5.8#/5.5% <1 week, estimated PO intake meeting <50% of estimated nutritional needs x 1 week. Inadequate oral intake RT respiratory failure requiring intubation AEB NPO status, OG in place. Evidence of Malnutrition Exists:: Yes Severe PCM:: Acute Illness - Nutrition Intervention Nutrition Prescription:: 0119-6614 calories, 45-55 g protein, 2383-4083 ml fluid - Food / Nutrient Delivery Interventions Nutrition support ordered as / adjusted to:: Initiate Vital Af 1.2 via OG at 20 ml per hour with 55 ml H2O flush every 4 hours and increase TF as tolerated by 15 ml every 8 to 12 hours until goal rate can be achieved. Vital AF 1.2 via OG goal rate 50 ml per hour with 55 ml H2O flush every 4 hours to provide 1440 calories, 90 grams protein, 1303 ml free water per day. - MNT Monitoring Further MNT monitoring and evaluation required?: Yes MNT Follow-up in:: 3-5 days
--- NOTE | 2021-01-08 09:36 | PHA.PHARE_ITS ---
Consult Pharmacy has been consulted to manage selected antiobiotic: Vancomycin Type of Consult: New start Labs: Sodium 137 mmol/L (136-145) 01/08/21 05:05 Potassium 4.1 mmol/L (3.5-5.1) 01/08/21 05:05 Chloride 98 mmol/L (98-107) 01/08/21 05:05 Carbon Dioxide 35.0 mmol/L (21.0-32.0) H 01/08/21 05:05 Anion Gap 4 (5-15) L 01/08/21 05:05 BUN 33 mg/dL (7-18) H 01/08/21 05:05 Creatinine 0.79 mg/dL (0.55-1.02) 01/08/21 05:05 Est GFR (MDRD) Af Amer 89 mL/min (>60) 01/08/21 05:05 Est GFR (MDRD) Non-Af 73 mL/min (>60) 01/08/21 05:05 BUN/Creatinine Ratio 41.7 RATIO (10-20) H 01/08/21 05:05 Glucose 92 mg/dL (74-106) 01/08/21 05:05 Microbiology: Microbiology 01/04/21 09:15 Blood Culture (Wb) - Right Wrist Blood Culture - Preliminary No growth in 48 hours. 01/04/21 09:05 Blood Culture (Wb) - Anticubital Right Blood Culture - Preliminary No growth in 48 hours. 01/04/21 09:15 Nasal Secretion SARS-CoV-2 Antigen (Rapid) - Final SARS-CoV-2 (COVID 19) Weight used for dosin.7 kg Estimated Creatinine Clearance: 37 ML/MIN Goal Trough: 15-20 mcg/mL Pharmacy Plan for Drug Dosing: Start with initial loading dose of 1250mg IV x1, then continue with 750mg IV q24h per [facility] dosing protocol. Will check a vanc trough level before the 3rd total dose. Pharmacy Service will continue to monitor and adjust dosing as required. Follow-Up Labs: Trough Vancomycin Labs to be done on [date and time ordered]: 01/10/21 08:30
--- NOTE | 2021-01-08 10:30 | PN.HOSP_ITS ---
Subjective Subjective: Patient seen and examined. She was on 8L of oxygen overnight, but acutely decompensated respiratory-portillo, and had to be intubated but in the early hours of this morning. She is intubated and sedated. Blood pressures running low in the 70s systolic. She has otherwise remained hemodynamically stable. She is on 2 L negative balance by 2.39 L. WBC is 11.5 today. Objective Data Objective Data Vital Signs: Vital Signs Temp Pulse Resp BP Pulse Ox 97.4 F L 66 14 77/43 L 97 01/08/21 08:00 01/08/21 10:15 01/08/21 10:15 01/08/21 10:15 01/08/21 10:15 Oxygen Flow Rate (L/min) 100 Oxygen Delivery Method Mechanical Ventilator Weight: 102 lb 15.294 oz Body Mass Index (BMI) 17.6 Intake & Output: Intake and Output for Last 24 Hours 01/06/21 01/07/21 01/08/21 23:59 23:59 23:59 Intake Total 370 / 370 580 / 580 101.52 / 101.52 Output Total 2730 / 2730 900 / 1300 615 / 615 Balance -2360 / -2360 -320 / -720 -513.48 / -513.48 Lab / Micro Data Result Diagrams: 01/08/21 05:05 01/08/21 05:05 Labs: Laboratory Results - last 24 hr 01/08/21 01/08/21 01/08/21 05:00 05:05 05:05 WBC 11.5 H RBC 3.87 L Hgb 12.3 Hct 38.4 MCV 99.2 H MCH 31.8 MCHC 32.0 RDW Std Deviation 45.1 H RDW Coeff of Dinorah 12.5 Plt Count 225 MPV 10.2 Immature Gran % (Auto) 4.300 H Neut % (Auto) 88.6 H Lymph % (Auto) 3.9 L [place] % (Auto) 2.1 Eos % (Auto) 0.9 Baso % (Auto) 0.2 Absolute Neuts (auto) 10.2 H Absolute Lymphs (auto) 0.45 L Nucleated RBC % 0 Sodium 137 Potassium 4.1 Chloride 98 Carbon Dioxide 35.0 H Anion Gap 4 L BUN 33 H Creatinine 0.79 Estim Creat Clear Calc 29.77 Est GFR (MDRD) Af Amer 89 Est GFR (MDRD) Non-Af 73 BUN/Creatinine Ratio 41.7 H Glucose 92 Calcium 8.1 L Total Bilirubin 0.50 AST 18 ALT 16 Alkaline Phosphatase 77 Total Creatine Kinase B-Natriuretic Peptide 130.9 H Total Protein 6.0 L Albumin 2.1 L Globulin 3.9 Albumin/Globulin Ratio 0.5 L Triglycerides 01/08/21 05:05 WBC RBC Hgb Hct MCV MCH MCHC RDW Std Deviation RDW Coeff of Dinorah Plt Count MPV Immature Gran % (Auto) Neut % (Auto) Lymph % (Auto) [place] % (Auto) Eos % (Auto) Baso % (Auto) Absolute Neuts (auto) Absolute Lymphs (auto) Nucleated RBC % Sodium Potassium Chloride Carbon Dioxide Anion Gap BUN Creatinine Estim Creat Clear Calc Est GFR (MDRD) Af Amer Est GFR (MDRD) Non-Af BUN/Creatinine Ratio Glucose Calcium Total Bilirubin AST ALT Alkaline Phosphatase Total Creatine Kinase 34 B-Natriuretic Peptide Total Protein Albumin Globulin Albumin/Globulin Ratio Triglycerides 111 Micro: Microbiology 01/04/21 09:15 Blood Culture (Wb) - Right Wrist Blood Culture - Preliminary No growth in 48 hours. 01/04/21 09:05 Blood Culture (Wb) - Anticubital Right Blood Culture - Preliminary No growth in 48 hours. 01/04/21 09:15 Nasal Secretion SARS-CoV-2 Antigen (Rapid) - Final SARS-CoV-2 (COVID 19) ABG Data ABG results: ABG 01/08/21 08:33 Specimen Type ART Sample Site R Radial pH 7.44 Bicarbonate Actual 28.8 H Total CO2 30 Base Excess 5 H O2 Saturation 90 L O2 % 100 ABG pCO2 42.0 ABG pO2 56 L Edin Test Positive Respiration Rate 14 O2 Delivery Device Adult Vent Vent Mode AC Tidal Volume 400 POC PEEP 8 Radiography Diagnostic Testing: Radiology Impression Chest X-Ray 01/08/21 05:59 IMPRESSION: Worsening bilateral pneumonia. Electronically Signed: Jimenez Martin MD at 6:44 EDT Tel , Service support , Chest X-Ray 01/08/21 08:02 IMPRESSION: 1. Status post intubation. 2. Nasogastric tube with tip at the gastroesophageal junction and should be advanced. 3. Bilateral infiltrates worse on the right side unchanged. Electronically Signed: Meek Vasquez MD at 9:14 EDT Tel , Service support , Chest X-Ray 01/08/21 08:31 IMPRESSION: Status post adjustment of nasogastric tube with the tip below the level of the diaphragm. Otherwise no significant change. Electronically Signed: Meek Vasquez MD at 9:18 EDT Tel , Service support , Physical Exam Const alert, oriented x3 and no apparent distress Constitutional Narrative: intubated, sedated. RASS score is -34 Orientation / Consciousness: lethargic Exam Limitations: no limitations Nutritional Appearance: cachectic HEENT head/scalp atraumatic Head and Scalp: normocephalic Mouth: dry mucous membranes Eyes PERRL Neck no lymphadenopathy Resp Resp Narrative: markedly diminished breath sounds bibasally, no wheezes or crackles. intubated, sedated. Cardio regular rate, regular rhythm, S1 normal heart sound, S2 normal heart sound and no gallops GI normal to inspection, nondistended, normoactive bowel sounds, soft to palpation, non-tender and non-distended Extremity normal to inspection and no clubbing, cyanosis or edema Skin no rashes or lesions noted Neuro oriented x3 Neuro Narrative: intubated, sedated, RASS score is -4 Sensorium / Orientation: awake, alert and oriented to person Psych affect normal Psych Narrative: intubated, sedated. RASS score is -4 Assessment & Plan Assessment/Plan (1) COVID-19: (2) Respiratory failure: (3) Pulmonary emboli: (4) Essential (primary) hypertension: (5) Rheumatoid arthritis: PLAN: #Acute hypoxic respiratory failure due to COVID 19 infection * decompensated today, and had to be intubated early today * on IV decadron * critical care on board * pulmonology on board * on IV lasix. * breathing treatment with bronchodilators #Right-sided pulmonary embolism * had to be intubated today; to continue eliquis GT bid * titrate oxygen to maintain sats >90% * #COVID-19 pneumonia: As under respiratory failure due to COVID-19 infection #Hypertension: On metoprolol and ramipril. DVT prophylaxis:on eliquis GT> Code status: full code Visit Charges Inpatient E&M: 51385 Subs Hosp L3
[2021-01-08 10:44] LABS: M R Staph aureus DNA By PCR Negative (Negative); Probe Check PASS; Specimen Processing Control PASS
[2021-01-08] MEDS: APIXABAN 5 MG TABLET 10 MG GT ×2 (11:10→21:06)
[2021-01-08] MEDS: Folic Acid 1 MG Tablet 2 MG GT (11:10)
[2021-01-08] MEDS: Famotidine 20 MG Tablet GT (11:10)
[2021-01-08] MEDS: dexAMETHasone 10 MG/ML Vial 6 MG IV (11:11)
[2021-01-08] MEDS: Chlorhexidine 15 ML PO ×2 (11:11→21:07)
[2021-01-08] MEDS: Vital AF 1.2 Cal Liquid 1,000 ML 20 ML GT (11:14)
[2021-01-08] MEDS: Budesonide Respules 0.5 MG/2 ML AMPUL.NEB. INHALATION (19:21)
[2021-01-08] MEDS: Propofol 10MG/Ml 1,000 MG/100 ML Bottle 2.1 MG CONT INF (21:07)
[2021-01-09] VITALS (46 sets, daily range): BP systolic 92–153; BP diastolic 37–80; PULSE 57–97; RESP 14–24; TEMP 36–36.3; O2SAT 91–96
[2021-01-09 05:26] LABS: Absolute Lymphocyte Count 0.41 X10^3/uL (0.83-4.51); Absolute Neutrophil Count 17.7 X10^3/uL (2.0-7.7); Basophil# 0.08 X10^3/uL; Basophil% 0.4 % (0-1); Hematocrit 34.6 % (37-47); Hemoglobin 11.1 g/dL (12.0-15.0); Lymphocyte # 0.41 X10^3/ul (0.83-4.51); Lymphocyte % 2.1 % (19-41); Mean Corp Hgb Conc 32.1 g/dL (32-36); Mean Corpuscular Hgb 31.5 pg (27.0-32.0); Mean Corpuscular Volume 98.3 fL (81-99); Mean Platelet Vol. 10.2 fl (6.2-12.0); Monocyte# 0.57 X10^3/uL; Monocyte% 2.9 % (0-10); NRBC Flagged by Analyzer 0 % (0-5); Neutrophil # 17.72 X10^3/uL (2.7-7.7); Neutrophil % 89.9 % (47-70); POSITIVE DIFFERENTIAL YES; Platelet Count 309 K/mm3 (150-450); RBC Distribution Width CV 12.5 % (11.6-14.6); RBC Distribution Width SD 45.1 fl (35.1-43.9); Red Blood Count 3.52 M/mm3 (4.2-5.4); White Blood Count 19.7 K/mm3 (4.4-11.0)
[2021-01-09 05:28] LABS: Differential Indicated SCAN CRITERIA MET
[2021-01-09 05:44] LABS: ALB/GLOB Ratio 0.5 RATIO (0.9-2.4); AST(SGOT) 14 U/L (15-37); Alanine Aminotransfer ALT/SGPT 13 U/L (13-56); Albumin, Serum 1.9 g/dL (3.2-5.0); Alkaline Phosphatase 81 U/L (45-117); Anion Gap 4 (5-15); BUN 43 mg/dL (7-18); BUN/Creat Ratio 57.3 RATIO (10-20); Calcium,Total 7.9 mg/dL (8.5-10.1); Chloride 103 mmol/L (98-107); Creatinine, Serum 0.75 mg/dL (0.55-1.02); EST Glomerular Filtration Rate 78 mL/min (>60); Est Glom Filt Rate - Afr Amer 94 mL/min (>60); Estimated Creatinine Clearance 29.39 ml/min; Globulin 3.9 g/dL (2.2-4.2); Glucose 292 mg/dL (74-106); Potassium 4.5 mmol/L (3.5-5.1); Protein, Total 5.8 g/dL (6.4-8.2); Sodium Level 136 mmol/L (136-145)
[2021-01-09] MEDS: TITRATION PARAMETER CHANGE 1 EACH IV (06:05)
--- NOTE | 2021-01-09 06:08 | PCM.PN.INT ---
Subjective Subjective: The patient was seen and examined at the bedside this morning. Events from the last 24 hours have been reviewed. The patient is currently afebrile and maintaining appropriate oxygen saturations on assist control mode of mechanical ventilation with an FiO2 requirement of 45%. She is currently being maintained on Levophed at 3 mcg/min to maintain hemodynamic stability. She has been tolerant of tube feeds thus far. She is currently documented to be overall net -1 L for the hospital admission. White count is elevated this morning to 20,000. The patient remains on remdesivir, Decadron, antimicrobials and systemic anticoagulation with Eliquis. Objective Data Objective Data The patient's most recent lab work, culture data and imaging studies have all been personally reviewed. Rapid coronavirus antigen testing was positive on January 04. Sputum culture is currently pending. Vital Signs: Vital Signs Temp Pulse Resp BP Pulse Ox 97 F L 87 24 H 119/57 L 92 01/09/21 00:00 01/09/21 05:14 01/09/21 05:14 01/09/21 05:30 01/09/21 05:14 Oxygen Flow Rate (L/min) 90 Oxygen Delivery Method Mechanical Ventilator Weight: 101 lb 10.13 oz Body Mass Index (BMI) 17.6 Intake & Output: Intake and Output for Last 24 Hours 01/07/21 01/08/21 01/09/21 23:59 23:59 23:59 Intake Total 580 / 580 1457.06 / 1471.99 463.61 / 463.61 Output Total 900 / 1300 785 / 785 225 / 225 Balance -320 / -720 672.06 / 686.99 238.61 / 238.61 Lab / Micro Data Attestation: I reviewed the patient's lab results. Result Diagrams: 01/09/21 05:00 01/09/21 05:00 Labs: Laboratory Results - last 24 hr 01/08/21 01/08/21 01/08/21 05:00 05:05 08:30 WBC RBC Hgb Hct MCV MCH MCHC RDW Std Deviation RDW Coeff of Dinorah Plt Count MPV Immature Gran % (Auto) Neut % (Auto) Lymph % (Auto) [place] % (Auto) Eos % (Auto) Baso % (Auto) Absolute Neuts (auto) Absolute Lymphs (auto) Nucleated RBC % Sodium Potassium Chloride Carbon Dioxide Anion Gap BUN Creatinine Estim Creat Clear Calc Est GFR (MDRD) Af Amer Est GFR (MDRD) Non-Af BUN/Creatinine Ratio Glucose Calcium Total Bilirubin AST ALT Alkaline Phosphatase Total Creatine Kinase 34 B-Natriuretic Peptide 130.9 H Total Protein Albumin Globulin Albumin/Globulin Ratio Triglycerides 111 MRSA (PCR) Negative 01/09/21 01/09/21 05:00 05:00 WBC 19.7 H RBC 3.52 L Hgb 11.1 L Hct 34.6 L MCV 98.3 MCH 31.5 MCHC 32.1 RDW Std Deviation 45.1 H RDW Coeff of Dinorah 12.5 Plt Count 309 MPV 10.2 Immature Gran % (Auto) 4.700 H Neut % (Auto) 89.9 H Lymph % (Auto) 2.1 L [place] % (Auto) 2.9 Eos % (Auto) 0.0 Baso % (Auto) 0.4 Absolute Neuts (auto) 17.7 H Absolute Lymphs (auto) 0.41 L Nucleated RBC % 0 Sodium 136 Potassium 4.5 Chloride 103 Carbon Dioxide 29.0 Anion Gap 4 L BUN 43 H Creatinine 0.75 Estim Creat Clear Calc 29.39 Est GFR (MDRD) Af Amer 94 Est GFR (MDRD) Non-Af 78 BUN/Creatinine Ratio 57.3 H Glucose 292 H Calcium 7.9 L Total Bilirubin 0.40 AST 14 L ALT 13 Alkaline Phosphatase 81 Total Creatine Kinase B-Natriuretic Peptide Total Protein 5.8 L Albumin 1.9 L Globulin 3.9 Albumin/Globulin Ratio 0.5 L Triglycerides MRSA (PCR) Micro: Microbiology 01/08/21 08:00 Sputum, Tracheal Aspirate Gram Stain - Final 01/04/21 09:15 Blood Culture (Wb) - Right Wrist Blood Culture - Preliminary No growth in 48 hours. 01/04/21 09:05 Blood Culture (Wb) - Anticubital Right Blood Culture - Preliminary No growth in 48 hours. 01/04/21 09:15 Nasal Secretion SARS-CoV-2 Antigen (Rapid) - Final SARS-CoV-2 (COVID 19) ABG Data ABG results: ABG 01/08/21 08:33 Specimen Type ART Sample Site R Radial pH 7.44 Bicarbonate Actual 28.8 H Total CO2 30 Base Excess 5 H O2 Saturation 90 L O2 % 100 ABG pCO2 42.0 ABG pO2 56 L Edin Test Positive Respiration Rate 14 O2 Delivery Device Adult Vent Vent Mode AC Tidal Volume 400 POC PEEP 8 Radiography Diagnostic Testing: Radiology Impression Chest X-Ray 01/08/21 05:59 IMPRESSION: Worsening bilateral pneumonia. Electronically Signed: Jimenez Martin MD at 6:44 EDT Tel , Service support , Chest X-Ray 01/08/21 08:02 IMPRESSION: 1. Status post intubation. 2. Nasogastric tube with tip at the gastroesophageal junction and should be advanced. 3. Bilateral infiltrates worse on the right side unchanged. Electronically Signed: Meek Vasquez MD at 9:14 EDT Tel , Service support , Chest X-Ray 01/08/21 08:31 IMPRESSION: Status post adjustment of nasogastric tube with the tip below the level of the diaphragm. Otherwise no significant change. Electronically Signed: Meek Vasquez MD at 9:18 EDT Tel , Service support , Physical Exam Const no apparent distress General Appearance: patient mechanically ventilated HEENT normocephalic and head/scalp atraumatic Mouth: endotracheal tube in place and OG tube in place Eyes PERRL and EOMs intact bilaterally Resp Auscultation: diminished lung sounds; Negative for rales, rhonchi or wheezes Cardio regular rate, regular rhythm, S1 normal heart sound and S2 normal heart sound GI normal to inspection, nondistended, normoactive bowel sounds Extremity no clubbing, cyanosis or edema Skin no rashes or lesions noted Neuro Sensorium / Orientation: sedated on vent Assessment & Plan Assessment/Plan (1) Respiratory failure: (2) Pulmonary emboli: (3) COVID-19: PLAN: RECOMMENDATIONS: 1. Continue patient on assist control mode mechanical ventilation and wean FiO2 to maintain saturations at or above 90%. 2. Perform daily paired spontaneous awakening and breathing trials. 3. Continue antimicrobials pending further infectious work-up. 4. Continue remdesivir to complete treatment course. Continue to monitor liver and renal function. 5. Continue Decadron to complete 10-day treatment course. 6. Continue systemic anticoagulation with Eliquis. 7. Continue tube feeds as tolerated. 8. Continue appropriate GI prophylaxis. 9. Wean Levophed to maintain a mean arterial pressure at or above 65 mmHg. IMPRESSIONS: 1. Acute hypoxemic respiratory failure secondary to COVID-19 pneumonia/pulmonary emboli The patient presented with approximately 1 week of symptoms which gradually worsened. She was subsequently found to have not only coronavirus but pulmonary emboli as well. The patient was subsequently placed on Decadron and systemic anticoagulation. For several days, the patient did well on heated high flow oxygen. However, on the morning of January 08, she decompensated from a respiratory perspective. Noninvasive positive pressure ventilation proved to be unsuccessful. Therefore, the patient was emergently intubated. Chest x-ray did reveal worsening bilateral infiltrates, particularly throughout the right hemithorax. Accordingly, the patient will be continued on remdesivir and Decadron, but was also be started on broad-spectrum antimicrobials as well. Plan to wean FiO2 to maintain saturations at or above 90%. Continue systemic anticoagulation with Eliquis as ordered. Continue tube feeds as tolerated. 2. Distributive shock The patient did have to be started on vasopressor support at a low-dose, mainly secondary to sedating medication use. Plan to continue current supportive measures as noted above. Wean propofol and fentanyl as tolerated. Patient will be weaned from Levophed with a goal to maintain a mean arterial pressure at or above 65 mmHg. 3. Hypertension/rheumatoid arthritis/asthma/advanced age Complicates care, management, recovery and prognosis. Diuretics and antihypertensives to remain on hold. Continue tube feeds and free water flushes per nutrition recommendations. TIME: 36 minutes of critical care time, independent of procedures, was spent addressing the patient's acute hypoxemic respiratory failure, COVID-19 pneumonia, pulmonary emboli, distributive shock, review of all data and collaboration with the care team. ([id number]) Procedures Pulmonary 9xxxx: [id number] Critical care first hour
[2021-01-09] MEDS: Albuterol 2.5 MG/3 ML VIAL.NEB. INHALATION ×3 (07:10→18:56)
[2021-01-09] MEDS: Budesonide Respules 0.5 MG/2 ML AMPUL.NEB. INHALATION ×2 (07:10→18:57)
[2021-01-09] MEDS: APIXABAN 5 MG TABLET 10 MG GT ×2 (09:50→20:50)
[2021-01-09] MEDS: Chlorhexidine 15 ML PO ×2 (09:50→20:49)
[2021-01-09] MEDS: Famotidine 20 MG Tablet GT (09:51)
[2021-01-09] MEDS: Senna/Docusate Sodium 1 Tablet 2 TABLET GT (09:51)
[2021-01-09] MEDS: Folic Acid 1 MG Tablet 2 MG GT (09:51)
[2021-01-09] MEDS: 0.9% Saline Lock 10 ML Syringe IV (09:51)
[2021-01-09] MEDS: dexAMETHasone 10 MG/ML Vial 6 MG IV (09:51)
[2021-01-09 10:56] LABS: Bedside Glucose 223 mg/dL (70-110)
[2021-01-09] MEDS: Insulin Lispro 100 UNIT/ML INSULN.PEN SC ×3 (11:28→23:35)
[2021-01-09] MEDS: Propofol 10MG/Ml 1,000 MG/100 ML Bottle 2.1 MG CONT INF (11:29)
--- NOTE | 2021-01-09 13:08 | PN.HOSP_ITS ---
Subjective Subjective: Patient seen and examined. She remains intubated and sedated. RASS score is 0 and she is able to open her eyes and respond to voice. She has remained hemodynamically stable. Review of systems otherwise negative. Objective Data Objective Data Vital Signs: Vital Signs Temp Pulse Resp BP Pulse Ox 97.3 F L 63 14 103/51 L 95 01/09/21 12:00 01/09/21 12:00 01/09/21 12:00 01/09/21 12:00 01/09/21 12:00 Oxygen Flow Rate (L/min) 90 Oxygen Delivery Method Mechanical Ventilator Weight: 101 lb 10.13 oz Body Mass Index (BMI) 17.6 Intake & Output: Intake and Output for Last 24 Hours 01/07/21 01/08/21 01/09/21 23:59 23:59 23:59 Intake Total 580 / 580 1457.06 / 1471.99 1510.28 / 1510.28 Output Total 900 / 1300 785 / 785 325 / 325 Balance -320 / -720 672.06 / 686.99 1185.28 / 1185.28 Lab / Micro Data Result Diagrams: 01/09/21 05:00 01/09/21 05:00 Labs: Laboratory Results - last 24 hr 01/09/21 01/09/21 01/09/21 05:00 05:00 10:49 WBC 19.7 H RBC 3.52 L Hgb 11.1 L Hct 34.6 L MCV 98.3 MCH 31.5 MCHC 32.1 RDW Std Deviation 45.1 H RDW Coeff of Dinorah 12.5 Plt Count 309 MPV 10.2 Immature Gran % (Auto) 4.700 H Neut % (Auto) 89.9 H Lymph % (Auto) 2.1 L [place] % (Auto) 2.9 Eos % (Auto) 0.0 Baso % (Auto) 0.4 Absolute Neuts (auto) 17.7 H Absolute Lymphs (auto) 0.41 L Nucleated RBC % 0 Sodium 136 Potassium 4.5 Chloride 103 Carbon Dioxide 29.0 Anion Gap 4 L BUN 43 H Creatinine 0.75 Estim Creat Clear Calc 29.39 Est GFR (MDRD) Af Amer 94 Est GFR (MDRD) Non-Af 78 BUN/Creatinine Ratio 57.3 H Glucose 292 H Calcium 7.9 L Total Bilirubin 0.40 AST 14 L ALT 13 Alkaline Phosphatase 81 Total Protein 5.8 L Albumin 1.9 L Globulin 3.9 Albumin/Globulin Ratio 0.5 L POC Glucose 223 H Micro: Microbiology 01/04/21 09:15 Blood Culture (Wb) - Right Wrist Blood Culture - Final No growth in 5 days. 01/04/21 09:05 Blood Culture (Wb) - Anticubital Right Blood Culture - Final No growth in 5 days. 01/08/21 08:00 Sputum, Tracheal Aspirate Gram Stain - Final 01/08/21 08:00 Sputum, Tracheal Aspirate Respiratory Culture - Preliminary Culture exhibits no growth. 01/04/21 09:15 Nasal Secretion SARS-CoV-2 Antigen (Rapid) - Final SARS-CoV-2 (COVID 19) Physical Exam Const Constitutional Narrative: intubated, sedated. RASS score is 0. Able to open eyes in response to voice. Exam Limitations: no limitations Nutritional Appearance: cachectic HEENT head/scalp atraumatic and hearing grossly normal bilaterally Eyes PERRL, EOMs intact bilaterally and conjunctivae normal Neck no lymphadenopathy Resp Resp Narrative: markedly diminished breath sounds bibasally, no wheezes or crackles. intubated, sedated. Cardio regular rate, regular rhythm, S1 normal heart sound, S2 normal heart sound and no gallops GI normal to inspection, nondistended, normoactive bowel sounds, soft to palpation, non-tender and non-distended Extremity normal to inspection, full ROM and no clubbing, cyanosis or edema Skin no rashes or lesions noted Neuro oriented x3 Neuro Narrative: intubated, sedated, RASS score is -4 Sensorium / Orientation: awake, alert and oriented to person Psych affect normal Psych Narrative: intubated, sedated. RASS score is 0 Assessment & Plan Assessment/Plan (1) COVID-19: (2) Respiratory failure: (3) Pulmonary emboli: (4) Essential (primary) hypertension: (5) Rheumatoid arthritis: PLAN: #Acute hypoxic respiratory failure due to COVID 19 infection * remains intubated. Vent settings were weaned down slightly today. * CXR showed worsening bilateral infiltrates, particularly in the right hemithorax * on IV decadron and remdesivir. also on IV cefepime * critical care on board * pulmonology on board * on IV lasix. * breathing treatment with bronchodilators * on propofol and fentanyl #Septic shock due to covid 19 infection * patient now requiring 3mcg/min of levophed to maintain her MAP>65 * wbc this morning is up to 20k. * on IV cefepime and vancomycin * blood culutres pending * #Right-sided pulmonary embolism * currently intubated and sedated * on eliquis to continue eliquis GT bid * titrate oxygen to maintain sats >90% * #COVID-19 pneumonia: * As under respiratory failure due to COVID-19 infection * #Hypertension: BP meds held o/a of metoprolol and ramipril DVT prophylaxis:on eliquis GT Nutrition: tube feeding Code status: full code Visit Charges Inpatient E&M: 21230 Subs Hosp L3
[2021-01-09] MEDS: Vital AF 1.2 Cal Liquid 1,000 ML 50 ML GT (15:46)
[2021-01-09] MEDS: 0.9% Normal Saline 1,000 ML 15 ML IV (16:00)
[2021-01-09 17:40] LABS: Bedside Glucose 382 mg/dL (70-110)
[2021-01-09 23:51] LABS: Bedside Glucose 325 mg/dL (70-110)
[2021-01-10] VITALS (48 sets, daily range): BP systolic 100–156; BP diastolic 48–113; PULSE 60–97; RESP 14–26; TEMP 36.3–36.9; O2SAT 91–98
[2021-01-10] MEDS: Propofol 10MG/Ml 1,000 MG/100 ML Bottle 2.8 MG CONT INF (00:33)
[2021-01-10 04:09] LABS: Absolute Neutrophil Count 17.7 X10^3/uL (2.0-7.7); Basophil# 0.04 X10^3/uL; Basophil% 0.2 % (0-1); Hematocrit 34.1 % (37-47); Hemoglobin 10.6 g/dL (12.0-15.0); Lymphocyte % 1.5 % (19-41); Mean Corp Hgb Conc 31.1 g/dL (32-36); Mean Corpuscular Hgb 31.5 pg (27.0-32.0); Mean Corpuscular Volume 101.5 fL (81-99); Mean Platelet Vol. 10.4 fl (6.2-12.0); Monocyte# 0.69 X10^3/uL; Monocyte% 3.6 % (0-10); NRBC Flagged by Analyzer 0 % (0-5); Neutrophil # 17.68 X10^3/uL (2.7-7.7); POSITIVE DIFFERENTIAL YES; Platelet Count 285 K/mm3 (150-450); RBC Distribution Width CV 12.6 % (11.6-14.6); RBC Distribution Width SD 47.1 fl (35.1-43.9); Red Blood Count 3.36 M/mm3 (4.2-5.4); White Blood Count 19.4 K/mm3 (4.4-11.0)
[2021-01-10 04:14] LABS: Differential Indicated SCAN CRITERIA MET
[2021-01-10 04:23] LABS: Anion Gap 7 (5-15); BUN 47 mg/dL (7-18); BUN/Creat Ratio 66.4 RATIO (10-20); Calcium,Total 7.6 mg/dL (8.5-10.1); Chloride 105 mmol/L (98-107); Creatinine, Serum 0.71 mg/dL (0.55-1.02); EST Glomerular Filtration Rate 83 mL/min (>60); Est Glom Filt Rate - Afr Amer 101 mL/min (>60); Estimated Creatinine Clearance 30.54 ml/min; Glucose 274 mg/dL (74-106); Potassium 4.6 mmol/L (3.5-5.1); Sodium Level 138 mmol/L (136-145)
[2021-01-10] MEDS: TITRATION PARAMETER CHANGE 1 EACH IV (05:27)
[2021-01-10 06:21] LABS: Allen Test Negative; Base Excess 0 mmol/L (-2 to +2); Bicarbonate 24.7 mmol/L (22-26); Blood Gas Specimen Type ART; FI02 40; Mode CPAP/PS; O2 Delivery Device Adult Vent; PEEP 5; PO2 68 mmHG (75-100); PS 5; SITE L Radial; SO2 93 % (95-99); Total Carbon Dioxide 26 mmol/L; pCO2 39.4 mmHg (35-45); pH 7.41 (7.35-7.45)
[2021-01-10] MEDS: Insulin Lispro 100 UNIT/ML INSULN.PEN SC ×3 (06:41→23:59)
--- NOTE | 2021-01-10 06:50 | NURSING ---
0633 pt extubated to 8l NC
[2021-01-10] MEDS: Albuterol 2.5 MG/3 ML VIAL.NEB. INHALATION ×3 (06:56→19:00)
[2021-01-10] MEDS: Budesonide Respules 0.5 MG/2 ML AMPUL.NEB. INHALATION ×2 (06:56→19:00)
[2021-01-10 07:21] LABS: Bedside Glucose 235 mg/dL (70-110)
--- NOTE | 2021-01-10 07:45 | PN.CC_ITS ---
Subjective Subjective: Patient was able to pass a spontaneous breathing trial this morning. Patient did report slight dyspnea at the end of the trial, but saturations were acceptable and ABG showed adequate oxygenation and ventilation. Objective Data Objective Data Patient tolerated spontaneous breathing trial and successfully extubated under my direct supervision. Patient is lethargic, but did require 8 L nasal cannula to maintain saturations following extubation. Vital Signs: Vital Signs Temp Pulse Resp BP Pulse Ox 36.4 C L 84 25 H 128/66 H 95 01/10/21 04:00 01/10/21 07:00 01/10/21 07:00 01/10/21 07:15 01/10/21 07:00 Oxygen Flow Rate (L/min) 8 Oxygen Delivery Method Nasal Cannula Weight: 47.9 kg Body Mass Index (BMI) 17.6 Intake & Output: Intake and Output for Last 24 Hours 01/08/21 01/09/21 01/10/21 23:59 23:59 23:59 Intake Total 1457.06 / 1471.99 2987.03 / 3064.23 678.03 / 678.03 Output Total 785 / 785 615 / 705 200 / 200 Balance 672.06 / 686.99 2372.03 / 2359.23 478.03 / 478.03 Lab / Micro Data Result Diagrams: 01/10/21 04:05 01/10/21 04:05 Labs: Laboratory Results - last 24 hr 01/09/21 01/09/21 01/09/21 10:49 17:29 23:35 WBC RBC Hgb Hct MCV MCH MCHC RDW Std Deviation RDW Coeff of Dinorah Plt Count MPV Immature Gran % (Auto) Neut % (Auto) Lymph % (Auto) [place] % (Auto) Eos % (Auto) Baso % (Auto) Absolute Neuts (auto) Absolute Lymphs (auto) Nucleated RBC % Sodium Potassium Chloride Carbon Dioxide Anion Gap BUN Creatinine Estim Creat Clear Calc Est GFR (MDRD) Af Amer Est GFR (MDRD) Non-Af BUN/Creatinine Ratio Glucose Calcium POC Glucose 223 H 382 H 325 H 01/10/21 01/10/21 01/10/21 04:05 04:05 06:40 WBC 19.4 H RBC 3.36 L Hgb 10.6 L Hct 34.1 L MCV 101.5 H MCH 31.5 MCHC 31.1 L RDW Std Deviation 47.1 H RDW Coeff of Dinorah 12.6 Plt Count 285 MPV 10.4 Immature Gran % (Auto) 3.700 H Neut % (Auto) 91.0 H Lymph % (Auto) 1.5 L [place] % (Auto) 3.6 Eos % (Auto) 0.0 Baso % (Auto) 0.2 Absolute Neuts (auto) 17.7 H Absolute Lymphs (auto) 0.30 L Nucleated RBC % 0 Sodium 138 Potassium 4.6 Chloride 105 Carbon Dioxide 26.0 Anion Gap 7 BUN 47 H Creatinine 0.71 Estim Creat Clear Calc 30.54 Est GFR (MDRD) Af Amer 101 Est GFR (MDRD) Non-Af 83 BUN/Creatinine Ratio 66.4 H Glucose 274 H Calcium 7.6 L POC Glucose 235 H Micro: Microbiology 01/04/21 09:15 Blood Culture (Wb) - Right Wrist Blood Culture - Final No growth in 5 days. 01/04/21 09:05 Blood Culture (Wb) - Anticubital Right Blood Culture - Final No growth in 5 days. 01/08/21 08:00 Sputum, Tracheal Aspirate Gram Stain - Final 01/08/21 08:00 Sputum, Tracheal Aspirate Respiratory Culture - Preliminary Culture exhibits no growth. 01/04/21 09:15 Nasal Secretion SARS-CoV-2 Antigen (Rapid) - Final SARS-CoV-2 (COVID 19) ABG Data ABG results: ABG 01/10/21 06:16 Specimen Type ART Sample Site L Radial pH 7.41 Bicarbonate Actual 24.7 Total CO2 26 Base Excess 0 O2 Saturation 93 L O2 % 40 ABG pCO2 39.4 ABG pO2 68 L Edin Test Negative O2 Delivery Device Adult Vent Vent Mode CPAP/PS POC PEEP 5 POC Pressure Suppt 5 Physical Exam Narrative The patient's most recent lab work, culture data and imaging studies have all been personally reviewed. Const alert and no apparent distress General Appearance: cooperative, in distress, lethargic, ill appearing, frail and patient mechanically ventilated HEENT normocephalic and head/scalp atraumatic Eyes PERRL and EOMs intact bilaterally Neck full ROM and no lymphadenopathy General: normal visual inspection and trachea midline Chest inspection of chest normal Chest: symmetrical chest wall rise Resp normal respiratory effort Effort and Inspection: Negative for respiratory distress, labored or uses accessory muscles Auscultation: diminished lung sounds; Negative for rales, rhonchi or wheezes Cardio regular rate, regular rhythm, S1 normal heart sound and S2 normal heart sound GI normal to inspection, nondistended, normoactive bowel sounds Extremity no clubbing, cyanosis or edema Skin no rashes or lesions noted Neuro oriented x3, CN's II-XII intact bilaterally and moves all extremities Sensorium / Orientation: sedated on vent Psych cooperative and affect normal Assessment & Plan Assessment/Plan (1) Respiratory failure: (2) Pulmonary emboli: (3) COVID-19: PLAN: RECOMMENDATIONS: 1. Bedside swallow evaluation 2. Wean oxygen as tolerated. BiPAP rescue if necessary 3. Continue antimicrobials pending further infectious work-up. 4. Continue remdesivir to complete treatment course. Continue to monitor liver and renal function. 5. Continue Decadron to complete 10-day treatment course. 6. Continue systemic anticoagulation with Eliquis. 7. Possibly addition of Lantus if remains hyperglycemic after cessation of tube feeds 8. Continue appropriate GI prophylaxis. 9. Wean Levophed to maintain a mean arterial pressure at or above 65 mmHg. IMPRESSIONS: 1. Acute hypoxemic respiratory failure secondary to COVID-19 pneumonia/pulmonary emboli The patient presented with approximately 1 week of symptoms which gradually worsened. She was subsequently found to have not only coronavirus but pulmonary emboli as well. The patient was subsequently placed on Decadron and systemic anticoagulation. For several days, the patient did well on heated high flow oxygen. However, on the morning of January 08, she decompensated from a re spiratory perspective, requiring intubation. Chest x-ray did reveal worsening bilateral infiltrates, particularly throughout the right hemithorax. Accordingly, the patient will be continued on remdesivir and Decadron, but was also be started on broad-spectrum antimicrobials as well. We will wean oxygen as tolerated. BiPAP rescue if necessary. 2. Distributive shock The patient did have to be started on vasopressor support at a low-dose, mainly secondary to sedating medication use. Plan to continue current supportive measures as noted above. We will see if this resolves with discontinuation of propofol and fentanyl. Patient will be weaned from Levophed with a goal to maintain a mean arterial pressure at or above 65 mmHg. 3. Hypertension/rheumatoid arthritis/asthma/advanced age Complicates care, management, recovery and prognosis. Diuretics and antihypertensives to remain on hold. Bedside swallow evaluation with initiation of p.o. diet if tolerates 4. Hyperglycemia This is likely secondary to steroids in the setting of tube feeds. We will continue to monitor blood sugars. Increase sliding scale to high, but discontinue NPH. Potentially add Lantus if patient remains hyperglycemic with decreased p.o. intake. TIME: 38 minutes of critical care time, independent of procedures, was spent addressing the patient's acute hypoxemic respiratory failure, COVID-19 pneumonia, pulmonary emboli, distributive shock, review of all data and collaboration with the care team. (7 AM to 8 AM)
[2021-01-10] MEDS: Senna/Docusate Sodium 1 Tablet 2 TABLET PO ×2 (08:31→20:47)
[2021-01-10] MEDS: Famotidine 20 MG Tablet PO (08:31)
[2021-01-10] MEDS: APIXABAN 5 MG TABLET 10 MG PO ×2 (08:31→20:47)
[2021-01-10] MEDS: Folic Acid 1 MG Tablet 2 MG PO (08:32)
[2021-01-10] MEDS: 0.9% Saline Lock 10 ML Syringe IV (08:34)
[2021-01-10 09:06] LABS: Vancomycin, Trough Level 11.2 ug/mL (5.0-15.0)
--- NOTE | 2021-01-10 09:22 | PN.HOSP_ITS ---
Subjective Subjective: Patient was seen and examined in ICU today, she was extubated earlier this morning, she is currently on 8 L nasal cannula oxygen, she is alert and able to answer simple questions. White blood cell count is still elevated. Objective Data Objective Data Vital Signs: Vital Signs Temp Pulse Resp BP Pulse Ox 97.6 F L 74 25 H 128/66 H 95 01/10/21 04:00 01/10/21 08:00 01/10/21 07:00 01/10/21 07:15 01/10/21 07:00 Oxygen Flow Rate (L/min) 8 Oxygen Delivery Method Nasal Cannula Weight: 47.9 kg Body Mass Index (BMI) 17.6 Intake & Output: Intake and Output for Last 24 Hours 01/08/21 01/09/21 01/10/21 23:59 23:59 23:59 Intake Total 1457.06 / 1471.99 2987.03 / 3064.23 678.03 / 678.03 Output Total 785 / 785 615 / 705 200 / 200 Balance 672.06 / 686.99 2372.03 / 2359.23 478.03 / 478.03 Lab / Micro Data Result Diagrams: 01/10/21 04:05 01/10/21 04:05 Labs: Laboratory Results - last 24 hr 01/09/21 01/09/21 01/09/21 10:49 17:29 23:35 WBC RBC Hgb Hct MCV MCH MCHC RDW Std Deviation RDW Coeff of Dinorah Plt Count MPV Immature Gran % (Auto) Neut % (Auto) Lymph % (Auto) [place] % (Auto) Eos % (Auto) Baso % (Auto) Absolute Neuts (auto) Absolute Lymphs (auto) Nucleated RBC % Sodium Potassium Chloride Carbon Dioxide Anion Gap BUN Creatinine Estim Creat Clear Calc Est GFR (MDRD) Af Amer Est GFR (MDRD) Non-Af BUN/Creatinine Ratio Glucose Calcium Vancomycin Trough POC Glucose 223 H 382 H 325 H 01/10/21 01/10/21 01/10/21 04:05 04:05 06:40 WBC 19.4 H RBC 3.36 L Hgb 10.6 L Hct 34.1 L MCV 101.5 H MCH 31.5 MCHC 31.1 L RDW Std Deviation 47.1 H RDW Coeff of Dinorah 12.6 Plt Count 285 MPV 10.4 Immature Gran % (Auto) 3.700 H Neut % (Auto) 91.0 H Lymph % (Auto) 1.5 L [place] % (Auto) 3.6 Eos % (Auto) 0.0 Baso % (Auto) 0.2 Absolute Neuts (auto) 17.7 H Absolute Lymphs (auto) 0.30 L Nucleated RBC % 0 Sodium 138 Potassium 4.6 Chloride 105 Carbon Dioxide 26.0 Anion Gap 7 BUN 47 H Creatinine 0.71 Estim Creat Clear Calc 30.54 Est GFR (MDRD) Af Amer 101 Est GFR (MDRD) Non-Af 83 BUN/Creatinine Ratio 66.4 H Glucose 274 H Calcium 7.6 L Vancomycin Trough POC Glucose 235 H 01/10/21 08:22 WBC RBC Hgb Hct MCV MCH MCHC RDW Std Deviation RDW Coeff of Dinorah Plt Count MPV Immature Gran % (Auto) Neut % (Auto) Lymph % (Auto) [place] % (Auto) Eos % (Auto) Baso % (Auto) Absolute Neuts (auto) Absolute Lymphs (auto) Nucleated RBC % Sodium Potassium Chloride Carbon Dioxide Anion Gap BUN Creatinine Estim Creat Clear Calc Est GFR (MDRD) Af Amer Est GFR (MDRD) Non-Af BUN/Creatinine Ratio Glucose Calcium Vancomycin Trough 11.2 POC Glucose Micro: Microbiology 01/04/21 09:15 Blood Culture (Wb) - Right Wrist Blood Culture - Final No growth in 5 days. 01/04/21 09:05 Blood Culture (Wb) - Anticubital Right Blood Culture - Final No growth in 5 days. 01/08/21 08:00 Sputum, Tracheal Aspirate Gram Stain - Final 01/08/21 08:00 Sputum, Tracheal Aspirate Respiratory Culture - Preliminary Culture exhibits no growth. 01/04/21 09:15 Nasal Secretion SARS-CoV-2 Antigen (Rapid) - Final SARS-CoV-2 (COVID 19) ABG Data ABG results: ABG 01/10/21 06:16 Specimen Type ART Sample Site L Radial pH 7.41 Bicarbonate Actual 24.7 Total CO2 26 Base Excess 0 O2 Saturation 93 L O2 % 40 ABG pCO2 39.4 ABG pO2 68 L Edin Test Negative O2 Delivery Device Adult Vent Vent Mode CPAP/PS POC PEEP 5 POC Pressure Suppt 5 Physical Exam Const alert, no apparent distress and healthy appearing General Appearance: cooperative, well kempt and well developed Orientation / Consciousness: awake and oriented to person HEENT normocephalic and moist oral mucous membranes Eyes PERRL, EOMs intact bilaterally and conjunctivae normal Neck nuchal rigidity, supple, no JVD, thyroid normal and no carotid bruits General: trachea midline Resp normal respiratory effort and clear to auscultation bilaterally Auscultation: Negative for rales, rhonchi or wheezes Cardio regular rate, regular rhythm, no murmurs, no rub and no gallops GI normal to inspection, nondistended, normoactive bowel sounds, soft to palpation, non-tender and non-distended Extremity no clubbing, cyanosis or edema Skin no rashes or lesions noted General Skin Exam: no breakdown Neuro oriented x3, CN's II-XII intact bilaterally, no focal motor deficits and no sensory deficits noted Sensorium / Orientation: awake and alert Speech: speech normal Psych thought process normal and affect normal Assessment & Plan Assessment/Plan (1) Respiratory failure: (2) Pulmonary emboli: (3) COVID-19: (4) Essential (primary) hypertension: (5) Hypotension (arterial): PLAN: #1 acute hypoxic respiratory failure secondary to COVID-19 pneumonia with pulmonary emboli-patient is currently on 8 L nasal cannula and appears stable at this time from a respiratory standpoint #2 hypotension-probably secondary to #1, patient is off pressors #3 COVID-19 pneumonia-continue Decadron #4 pulmonary emboli-continue Eliquis #5 essential hypertension Visit Charges Inpatient E&M: 56587 Subs Hosp L2
--- NOTE | 2021-01-10 10:23 | CASEMGMT ---
SW participated in ICU rounds. SW spoke w/daughter Nora on the phone in regard to discharge plan. SW reviewed with daughter that pt is needing a lot of assist with therapy, inquired about pt possibly going somewhere for rehab rather than straight home from hospital. Daughter states that she promised pt's she would never put pt in a home, and that pt will go home. SW explained that patients can go for short term rehab to a group home, and that this is what SW means rather than going [facility]. SW again explained pt is needing a maximum to dependent assist of two to get up with therapy, and that this may be difficult for them to do at home. Daughter still stating pt will go home. SW explained we can see how pt does with therapy today and revisit, explained can call daughter back after therapy today or tomorrow, and we can review discharge options again. Daughter states understanding. SW will continue to follow, will speak w/daughter again regarding discharge plan, once pt has participated again in PT/OT. BRIA Wilson
[2021-01-10] MEDS: dexAMETHasone 10 MG/ML Vial 6 MG IV (10:39)
[2021-01-10] MEDS: 0.9% Normal Saline 1,000 ML 15 ML IV (11:10)
--- NOTE | 2021-01-10 11:25 | PCM.RX.CS ---
Consult Pharmacy has been consulted to manage selected antiobiotic: Vancomycin Type of Consult: Follow-up Suspected Infection: Pneumonia Prior Doses of Antibiotics Received/Current Regimen: Has been on 750mg iv q24h. Labs: Sodium 138 mmol/L (136-145) 01/10/21 04:05 Potassium 4.6 mmol/L (3.5-5.1) 01/10/21 04:05 Chloride 105 mmol/L (98-107) 01/10/21 04:05 Carbon Dioxide 26.0 mmol/L (21.0-32.0) 01/10/21 04:05 Anion Gap 7 (5-15) 01/10/21 04:05 BUN 47 mg/dL (7-18) H 01/10/21 04:05 Creatinine 0.71 mg/dL (0.55-1.02) 01/10/21 04:05 Est GFR (MDRD) Af Amer 101 mL/min (>60) 01/10/21 04:05 Est GFR (MDRD) Non-Af 83 mL/min (>60) 01/10/21 04:05 BUN/Creatinine Ratio 66.4 RATIO (10-20) H 01/10/21 04:05 Glucose 274 mg/dL (74-106) H 01/10/21 04:05 Vancomycin Trough 11.2 ug/mL (5.0-15.0) 01/10/21 08:22 Microbiology: Microbiology 01/08/21 08:00 Sputum, Tracheal Aspirate Gram Stain - Final 01/08/21 08:00 Sputum, Tracheal Aspirate Respiratory Culture - Preliminary Appears to be normal respiratory teresa. Further studies to follow. 01/04/21 09:15 Blood Culture (Wb) - Right Wrist Blood Culture - Final No growth in 5 days. 01/04/21 09:05 Blood Culture (Wb) - Anticubital Right Blood Culture - Final No growth in 5 days. 01/04/21 09:15 Nasal Secretion SARS-CoV-2 Antigen (Rapid) - Final SARS-CoV-2 (COVID 19) Weight used for dosin.9 kg Estimated Creatinine Clearance: ~31ml/min Goal Trough: 15-20 mcg/mL Pharmacy Plan for Drug Dosing: Trough level today 11.2 with goal of 15-20mcg/ml. Will increase dose to 1gm iv q24h and get another trough level on 12.14.20 before 3rd dose of new regimen. Pharmacy Service will continue to monitor and adjust dosing as required. Follow-Up Labs: Trough Vancomycin - 12.14.20 @0830 before 0900 dose
[2021-01-10 12:11] LABS: Bedside Glucose 138 mg/dL (70-110)
--- NOTE | 2021-01-10 14:32 | CASEMGMT ---
SW spoke w/[facility] to see if they are in network w/pt's insurance, as the only other facility that takes pt's insurance close to [place] is [facility]. As per Stefania, they do not take pt's insurance but they have had luck getting one time contracts, since they are the only facility in [facility] taking COVID+ patients. SW will let family know this when SW speaks w/them again. PT/OT still pending for today. BRIA Wilson
--- NOTE | 2021-01-10 14:41 | PCM.PN.ID ---
Physical Exam Narrative Feeling better, breathing slowly improving, some sputum Resp Auscultation: diminished lung sounds Cardio regular rate and regular rhythm GI normal to inspection, nondistended, normoactive bowel sounds Skin no rashes or lesions noted ID ID: Route of nutrition/ use of supplements: [] Nutritional Intake: [] IV Site: [] Santiago Catheter: [] Assessment & Plan Assessment/Plan (1) COVID-19: PLAN: Covid, sx started around 12/29. On dex. On remdesivir and therapeutic anticoagulation. Have encouraged her and her daughter to get vaccinated. Pt will have to schedule once she is out of quarantine (20 days from start of symptoms). Reviewed labs. Now with rise in wbc. Sputum with mixed teresa, started on empiric vanc/cefepime. Will follow (2) Respiratory failure: (3) Pulmonary emboli:
[2021-01-10 17:15] LABS: Bedside Glucose 255 mg/dL (70-110)
--- NOTE | 2021-01-10 19:00 | CPS ---
Decreased O2 to 5 lpm
[2021-01-11] VITALS (18 sets, daily range): BP systolic 102–159; BP diastolic 53–70; PULSE 53–85; RESP 15–27; TEMP 36.3–37; O2SAT 91–100
[2021-01-11 00:26] LABS: Bedside Glucose 192 mg/dL (70-110)
[2021-01-11 03:51] LABS: Absolute Lymphocyte Count 0.34 X10^3/uL (0.83-4.51); Absolute Neutrophil Count 12.2 X10^3/uL (2.0-7.7); Basophil# 0.02 X10^3/uL; Basophil% 0.2 % (0-1); Differential Indicated SCAN CRITERIA MET; Hematocrit 33.3 % (37-47); Hemoglobin 10.2 g/dL (12.0-15.0); Lymphocyte # 0.34 X10^3/ul (0.83-4.51); Lymphocyte % 2.6 % (19-41); Mean Corp Hgb Conc 30.6 g/dL (32-36); Mean Corpuscular Hgb 30.7 pg (27.0-32.0); Mean Corpuscular Volume 100.3 fL (81-99); Mean Platelet Vol. 10.5 fl (6.2-12.0); Monocyte# 0.46 X10^3/uL; Monocyte% 3.5 % (0-10); NRBC Flagged by Analyzer 0 % (0-5); Neutrophil # 12.23 X10^3/uL (2.7-7.7); POSITIVE DIFFERENTIAL YES; Platelet Count 202 K/mm3 (150-450); RBC Distribution Width CV 12.6 % (11.6-14.6); RBC Distribution Width SD 46.4 fl (35.1-43.9); Red Blood Count 3.32 M/mm3 (4.2-5.4); White Blood Count 13.3 K/mm3 (4.4-11.0)
[2021-01-11 04:07] LABS: Anion Gap 4 (5-15); BUN 40 mg/dL (7-18); BUN/Creat Ratio 79.1 RATIO (10-20); Calcium,Total 8.1 mg/dL (8.5-10.1); Chloride 106 mmol/L (98-107); Creatinine, Serum 0.51 mg/dL (0.55-1.02); EST Glomerular Filtration Rate 123 mL/min (>60); Est Glom Filt Rate - Afr Amer 148 mL/min (>60); Estimated Creatinine Clearance 30.54 ml/min; Glucose 133 mg/dL (74-106); Magnesium 2.2 mg/dL (1.6-2.6); Phosphorus 2.9 mg/dL (2.5-4.9); Potassium 4.7 mmol/L (3.5-5.1); Sodium Level 138 mmol/L (136-145)
--- NOTE | 2021-01-11 06:43 | PCM.PN.INT ---
Subjective Subjective: Patient did okay overnight. Patient has been able to be weaned to 4 L nasal cannula and is tolerating well. Patient continues to be profoundly weak and requiring assistance with feeding and moving around bed. Objective Data Objective Data Vital Signs: Vital Signs Temp Pulse Resp BP Pulse Ox 37.0 C 53 L 18 102/55 L 100 01/11/21 04:00 01/11/21 05:00 01/11/21 05:00 01/11/21 05:00 01/11/21 05:00 Oxygen Flow Rate (L/min) 4 Oxygen Delivery Method Nasal Cannula Weight: 48.5 kg Body Mass Index (BMI) 17.6 Intake & Output: Intake and Output for Last 24 Hours 01/09/21 01/10/21 01/11/21 23:59 23:59 23:59 Intake Total 2987.03 / 3064.23 1695.96 / 1695.96 Output Total 615 / 705 665 / 965 800 / 800 Balance 2372.03 / 2359.23 1030.96 / 730.96 -800 / -800 Lab / Micro Data Result Diagrams: 01/11/21 03:30 01/11/21 03:30 Labs: Laboratory Results - last 24 hr 01/10/21 01/10/21 01/10/21 06:40 08:22 11:59 WBC RBC Hgb Hct MCV MCH MCHC RDW Std Deviation RDW Coeff of Dinorah Plt Count MPV Immature Gran % (Auto) Neut % (Auto) Lymph % (Auto) [place] % (Auto) Eos % (Auto) Baso % (Auto) Absolute Neuts (auto) Absolute Lymphs (auto) Nucleated RBC % Sodium Potassium Chloride Carbon Dioxide Anion Gap BUN Creatinine Estim Creat Clear Calc Est GFR (MDRD) Af Amer Est GFR (MDRD) Non-Af BUN/Creatinine Ratio Glucose Calcium Phosphorus Magnesium Vancomycin Trough 11.2 POC Glucose 235 H 138 H 01/10/21 01/10/21 01/11/21 16:55 23:58 03:30 WBC 13.3 H RBC 3.32 L Hgb 10.2 L Hct 33.3 L MCV 100.3 H MCH 30.7 MCHC 30.6 L RDW Std Deviation 46.4 H RDW Coeff of Dinorah 12.6 Plt Count 202 MPV 10.5 Immature Gran % (Auto) 1.700 H Neut % (Auto) 92.0 H Lymph % (Auto) 2.6 L [place] % (Auto) 3.5 Eos % (Auto) 0.0 Baso % (Auto) 0.2 Absolute Neuts (auto) 12.2 H Absolute Lymphs (auto) 0.34 L Nucleated RBC % 0 Sodium Potassium Chloride Carbon Dioxide Anion Gap BUN Creatinine Estim Creat Clear Calc Est GFR (MDRD) Af Amer Est GFR (MDRD) Non-Af BUN/Creatinine Ratio Glucose Calcium Phosphorus Magnesium Vancomycin Trough POC Glucose 255 H 192 H 01/11/21 03:30 WBC RBC Hgb Hct MCV MCH MCHC RDW Std Deviation RDW Coeff of Dinorah Plt Count MPV Immature Gran % (Auto) Neut % (Auto) Lymph % (Auto) [place] % (Auto) Eos % (Auto) Baso % (Auto) Absolute Neuts (auto) Absolute Lymphs (auto) Nucleated RBC % Sodium 138 Potassium 4.7 Chloride 106 Carbon Dioxide 28.0 Anion Gap 4 L BUN 40 H Creatinine 0.51 L Estim Creat Clear Calc 30.54 Est GFR (MDRD) Af Amer 148 Est GFR (MDRD) Non-Af 123 BUN/Creatinine Ratio 79.1 H Glucose 133 H Calcium 8.1 L Phosphorus 2.9 Magnesium 2.2 Vancomycin Trough POC Glucose Micro: Microbiology 01/08/21 08:00 Sputum, Tracheal Aspirate Gram Stain - Final 01/08/21 08:00 Sputum, Tracheal Aspirate Respiratory Culture - Final 01/04/21 09:15 Blood Culture (Wb) - Right Wrist Blood Culture - Final No growth in 5 days. 01/04/21 09:05 Blood Culture (Wb) - Anticubital Right Blood Culture - Final No growth in 5 days. 01/04/21 09:15 Nasal Secretion SARS-CoV-2 Antigen (Rapid) - Final SARS-CoV-2 (COVID 19) Physical Exam Narrative The patient's most recent lab work, culture data and imaging studies have all been personally reviewed. Const alert and no apparent distress General Appearance: cooperative, in distress, lethargic and frail HEENT normocephalic and head/scalp atraumatic Eyes PERRL and EOMs intact bilaterally Neck full ROM and no lymphadenopathy General: normal visual inspection and trachea midline Chest inspection of chest normal Chest: symmetrical chest wall rise Resp normal respiratory effort Effort and Inspection: Negative for respiratory distress, labored or uses accessory muscles Auscultation: diminished lung sounds; Negative for rales, rhonchi or wheezes Cardio regular rate, regular rhythm, S1 normal heart sound and S2 normal heart sound GI normal to inspection, nondistended, normoactive bowel sounds Extremity no clubbing, cyanosis or edema Skin no rashes or lesions noted Neuro oriented x3, CN's II-XII intact bilaterally and moves all extremities Psych cooperative and affect normal Assessment & Plan Assessment/Plan (1) Respiratory failure: (2) Pulmonary emboli: (3) COVID-19: PLAN: RECOMMENDATIONS: 1. Continue monitored feedings 2. Wean oxygen as tolerated. BiPAP rescue if necessary 3. Anticipate completion of 7 days of antibiotics 4. Completed remdesivir 5. Continue Decadron to complete 10-day treatment course. 6. Continue systemic anticoagulation with Eliquis. 7. Hold on addition of long-acting insulin 8. Continue appropriate GI prophylaxis. 9. Okay to transition to PCU status from my perspective IMPRESSIONS: 1. Acute hypoxemic respiratory failure secondary to COVID-19 pneumonia/pulmonary emboli The patient presented with approximately 1 week of symptoms which gradually worsened. She was subsequently found to have not only coronavirus but pulmonary emboli as well. The patient was subsequently placed on Decadron and systemic anticoagulation. For several days, the patient did well on heated high flow oxygen. However, on the morning of January 08, she decompensated from a respiratory perspective, requiring intubation. Chest x-ray did reveal worsening bilateral infiltrates, particularly throughout the right hemithorax. Patient has done well since extubation from a respiratory standpoint. Patient has completed remdesivir, but will be continued on Decadron. 2. Distributive shock Resolved. Patient appears to be doing well from a hemodynamic standpoint following cessation of propofol and fentanyl 3. Hypertension/rheumatoid arthritis/asthma/advanced age Complicates care, management, recovery and prognosis. Diuretics and antihypertensives to remain on hold. Continued monitored feedings given weakness 4. Hyperglycemia This is likely secondary to steroids in the setting of tube feeds. We will continue to monitor blood sugars. Blood sugars continue to improve following cessation of tube feeds. We will hold on long-acting insulin for now. Visit Charges Inpatient E&M: 95044 Subs Hosp L3
[2021-01-11] MEDS: Budesonide Respules 0.5 MG/2 ML AMPUL.NEB. INHALATION ×2 (07:09→18:45)
[2021-01-11] MEDS: Albuterol 2.5 MG/3 ML VIAL.NEB. INHALATION ×3 (07:09→18:45)
[2021-01-11] MEDS: 0.9% Saline Lock 10 ML Syringe IV ×2 (07:51→20:50)
[2021-01-11] MEDS: dexAMETHasone 10 MG/ML Vial 6 MG IV (07:51)
[2021-01-11] MEDS: Folic Acid 1 MG Tablet 2 MG PO (07:52)
[2021-01-11] MEDS: Senna/Docusate Sodium 1 Tablet 2 TABLET PO ×2 (07:52→20:49)
[2021-01-11] MEDS: Famotidine 20 MG Tablet PO (07:52)
[2021-01-11] MEDS: APIXABAN 5 MG TABLET 10 MG PO ×2 (07:53→20:49)
[2021-01-11 08:15] LABS: Bedside Glucose 148 mg/dL (70-110)
--- NOTE | 2021-01-11 10:00 | PN.HOSP_ITS ---
Objective Data Objective Data Vital Signs: Vital Signs Temp Pulse Resp BP Pulse Ox 97.8 F 82 21 H 116/54 L 97 01/11/21 07:00 01/11/21 07:44 01/11/21 07:12 01/11/21 07:00 01/11/21 07:12 Oxygen Flow Rate (L/min) 4 Oxygen Delivery Method Nasal Cannula Weight: 48.5 kg Body Mass Index (BMI) 17.6 Intake & Output: Intake and Output for Last 24 Hours 01/09/21 01/10/21 01/11/21 23:59 23:59 23:59 Intake Total 2987.03 / 3064.23 1695.96 / 1695.96 86 / 86 Output Total 615 / 705 665 / 965 800 / 800 Balance 2372.03 / 2359.23 1030.96 / 730.96 -714 / -714 Lab / Micro Data Result Diagrams: 01/11/21 03:30 01/11/21 03:30 Labs: Laboratory Results - last 24 hr 01/10/21 01/10/21 01/10/21 11:59 16:55 23:58 WBC RBC Hgb Hct MCV MCH MCHC RDW Std Deviation RDW Coeff of Dinorah Plt Count MPV Immature Gran % (Auto) Neut % (Auto) Lymph % (Auto) [place] % (Auto) Eos % (Auto) Baso % (Auto) Absolute Neuts (auto) Absolute Lymphs (auto) Nucleated RBC % Sodium Potassium Chloride Carbon Dioxide Anion Gap BUN Creatinine Estim Creat Clear Calc Est GFR (MDRD) Af Amer Est GFR (MDRD) Non-Af BUN/Creatinine Ratio Glucose Calcium Phosphorus Magnesium POC Glucose 138 H 255 H 192 H 01/11/21 01/11/21 01/11/21 03:30 03:30 07:30 WBC 13.3 H RBC 3.32 L Hgb 10.2 L Hct 33.3 L MCV 100.3 H MCH 30.7 MCHC 30.6 L RDW Std Deviation 46.4 H RDW Coeff of Dinorah 12.6 Plt Count 202 MPV 10.5 Immature Gran % (Auto) 1.700 H Neut % (Auto) 92.0 H Lymph % (Auto) 2.6 L [place] % (Auto) 3.5 Eos % (Auto) 0.0 Baso % (Auto) 0.2 Absolute Neuts (auto) 12.2 H Absolute Lymphs (auto) 0.34 L Nucleated RBC % 0 Sodium 138 Potassium 4.7 Chloride 106 Carbon Dioxide 28.0 Anion Gap 4 L BUN 40 H Creatinine 0.51 L Estim Creat Clear Calc 30.54 Est GFR (MDRD) Af Amer 148 Est GFR (MDRD) Non-Af 123 BUN/Creatinine Ratio 79.1 H Glucose 133 H Calcium 8.1 L Phosphorus 2.9 Magnesium 2.2 POC Glucose 148 H Micro: Microbiology 01/08/21 08:00 Sputum, Tracheal Aspirate Gram Stain - Final 01/08/21 08:00 Sputum, Tracheal Aspirate Respiratory Culture - Final 01/04/21 09:15 Blood Culture (Wb) - Right Wrist Blood Culture - Final No growth in 5 days. 01/04/21 09:05 Blood Culture (Wb) - Anticubital Right Blood Culture - Final No growth in 5 days. 01/04/21 09:15 Nasal Secretion SARS-CoV-2 Antigen (Rapid) - Final SARS-CoV-2 (COVID 19) Physical Exam Const alert, no apparent distress and healthy appearing General Appearance: cooperative, well kempt and well developed Orientation / Consciousness: awake, oriented to person and lethargic Exam Limitations: no limitations Nutritional Appearance: cachectic HEENT normocephalic, head/scalp atraumatic, hearing grossly normal bilaterally and moist oral mucous membranes Eyes PERRL, EOMs intact bilaterally and conjunctivae normal Neck nuchal rigidity, no lymphadenopathy, supple, no JVD, thyroid normal and no carotid bruits General: trachea midline Resp normal respiratory effort and clear to auscultation bilaterally Auscultation: Negative for rales, rhonchi or wheezes Cardio regular rate, regular rhythm, S1 normal heart sound, S2 normal heart sound, no murmurs, no rub and no gallops GI normal to inspection, nondistended, normoactive bowel sounds, soft to palpation, non-tender and non-distended Extremity normal to inspection, full ROM and no clubbing, cyanosis or edema Skin no rashes or lesions noted General Skin Exam: no breakdown Neuro oriented x3, CN's II-XII intact bilaterally, no focal motor deficits and no sensory deficits noted Sensorium / Orientation: awake, alert and oriented to person Speech: speech normal Psych thought process normal and affect normal Assessment & Plan Assessment/Plan (1) Pulmonary emboli: (2) COVID-19: (3) Essential (primary) hypertension: (4) Hypotension (arterial): PLAN: #1 acute hypoxic respiratory failure secondary to COVID-19 pneumonia with pulmonary emboli-patient is currently on 4 L nasal cannula and appears stable at this time from a respiratory standpoint #2 hypotension-probably secondary to #1, patient is off pressors #3 COVID-19 pneumonia-continue Decadron #4 pulmonary emboli-continue Eliquis #5 essential hypertension
[2021-01-11] MEDS: Vancomycin IV 1,000 MG/200 ML BAG 200 MG IV (10:15)
--- NOTE | 2021-01-11 10:57 | CASEMGMT ---
Addendum entered by Stephanie Mahan 01/11/21 11:44: [facility] would not be able to take pt until after the , as pt would need to be 14 days after the last positive COVID before they would consider pt. Also, they are not in network w/pt's insurance. SW called daughter, explained that [facility] is not an option for pt as outlined above, and explained that [facility] will not consider her since she is positive for COVID. SW reviewed w/daughter all possible options near to [place], including [facility], [facility], [facility], [place](though not in network they may be able to get a one time contract), [facility], [facility], [facility], [facility] and [facility]. All of these facilities have in the past considered pts 10-14 days after a positive COVID. SW explained it will also depend on pt's oxygen needs as well. Daughter may be agreeable to a referral at [facility]. SW explained will call and let her know. SW called [facility], message left for Zuleima Alfaro. SW will await a return call. BRIA Wilson Original Note: As per medical record, pt's first positive COVID test was 12/28/20. YOUNG called [facility], YOUNG from [place] faxed positive COVID test to [facility]. At [facility], she had a positive COVID test on 01/04/21. Depending on how nursing homes count days after a positive COVID test, there may be some additional options for pt after having a positive COVID test. SW called [facility], spoke w/Marycruz. They would likely count from the and may be able to accept pt. They may not be able to support pt's O2 needs however. YOUNG called [facility], they would be able to support pt's O2 needs, and would be able to take pt by the at the latest. YOUNG called [facility], they can to increased oxygen but do not take pt's insurance. [place] may also be an option. YOUNG called daughter Gabrielle to again review options for pt. Though they still want to take pt home, they may consider SNF. SW reviewed options w/daughter. She is not agreeable to [facility], states it is too far away. SW spoke w/her about [facility] and [place] as possible options. Daughter asked about [facility] and [facility]. SW explained will check to see if they would consider pt, will let her know. [facility] called [facility], they will not consider pt. SW called [facility], they may not be in network. Radha at [facility] is also not certain if they would count the days from the 27th or the 4th, she will check and let SW know. SW will continue to follow. BRIA Wilson
[2021-01-11] MEDS: Insulin Lispro 100 UNIT/ML INSULN.PEN SC ×3 (12:25→23:57)
[2021-01-11 12:35] LABS: Bedside Glucose 255 mg/dL (70-110)
--- NOTE | 2021-01-11 12:47 | CASEMGMT ---
Addendum entered by Stephanie Mahan 01/11/21 13:48: Pt's daughter Gabrielle called into ICU, spoke w/[facility]. She is now stating would like a referral sent to [facility]. She states it is closer to home for them. SW explained will send referral and it will depend on pt's oxygen requirements, if they are able to take pt. SW explained will make referral and let her know. YOUNG called Marycruz at [facility], message left and referral faxed. YOUNG will continue to follow. BRIA Wilson Original Note: YOUNG spoke w/Corazon from [facility]. She confirmed they can take pts 14 days after their first positive COVID test, so for this pt it would be 14 days from the 27th. Also, they can take patients with higher O2 needs, can take pts up to needing 60L, and can also do the noninvasive Trilogy. She also confirmed can take pt's insurance. YOUNG faxed referral to Corazon at [facility] for review. BRIA Wilson
--- NOTE | 2021-01-11 14:21 | CASEMGMT ---
Addendum entered by Stephanie Mahan 01/11/21 15:18: SW spoke w/Marycruz from [facility], she states that they are checking with the Dept of Health, when they should count the 10 days post COVID positive test from--the first test on 12/28 or the second test on 01/04. She will let SW know. SW explained will also let her know about pt's O2 requirements when she is up w/param, confirmed w/Marycruz if pt needs more than 10LPM they would not be able to accept her. YOUNG will continue to follow. BRIA Wilson Original Note: [facility] can accept pt. SW explained to hold off on starting precert as family is considering another facility now. Corazon at [facility] states understanding. BRIA Wilson
--- NOTE | 2021-01-11 17:34 | PCM.PN.HOSP ---
Subjective Subjective Patient was seen and examined today in ICU, she is currently on nasal cannula O2 at 4 L, physical therapy recommends that she receive continued skilled therapy and she is agreed to go to an extended care facility for short-term rehab services. Objective Data Objective Data Vital Signs: Vital Signs Temp Pulse Resp BP Pulse Ox 97.6 F L 75 25 H 159/63 H 94 01/11/21 12:00 01/11/21 13:48 01/11/21 13:48 01/11/21 12:00 01/11/21 12:00 Oxygen Flow Rate (L/min) 4 Oxygen Delivery Method Nasal Cannula Weight: 48.5 kg Body Mass Index (BMI) 17.6 Intake & Output: Intake and Output for Last 24 Hours 01/09/21 01/10/21 01/11/21 23:59 23:59 23:59 Intake Total 2987.03 / 3064.23 1695.96 / 1695.96 476 / 476 Output Total 615 / 705 665 / 965 1450 / 1450 Balance 2372.03 / 2359.23 1030.96 / 730.96 -974 / -974 Lab / Micro Data Result Diagrams: 01/11/21 03:30 01/11/21 03:30 Labs: Laboratory Results - last 24 hr 01/10/21 01/11/21 01/11/21 23:58 03:30 03:30 WBC 13.3 H RBC 3.32 L Hgb 10.2 L Hct 33.3 L MCV 100.3 H MCH 30.7 MCHC 30.6 L RDW Std Deviation 46.4 H RDW Coeff of Dinorah 12.6 Plt Count 202 MPV 10.5 Immature Gran % (Auto) 1.700 H Neut % (Auto) 92.0 H Lymph % (Auto) 2.6 L [place] % (Auto) 3.5 Eos % (Auto) 0.0 Baso % (Auto) 0.2 Absolute Neuts (auto) 12.2 H Absolute Lymphs (auto) 0.34 L Nucleated RBC % 0 Sodium 138 Potassium 4.7 Chloride 106 Carbon Dioxide 28.0 Anion Gap 4 L BUN 40 H Creatinine 0.51 L Estim Creat Clear Calc 30.54 Est GFR (MDRD) Af Amer 148 Est GFR (MDRD) Non-Af 123 BUN/Creatinine Ratio 79.1 H Glucose 133 H Calcium 8.1 L Phosphorus 2.9 Magnesium 2.2 POC Glucose 192 H 01/11/21 01/11/21 07:30 12:23 WBC RBC Hgb Hct MCV MCH MCHC RDW Std Deviation RDW Coeff of Dinorah Plt Count MPV Immature Gran % (Auto) Neut % (Auto) Lymph % (Auto) [place] % (Auto) Eos % (Auto) Baso % (Auto) Absolute Neuts (auto) Absolute Lymphs (auto) Nucleated RBC % Sodium Potassium Chloride Carbon Dioxide Anion Gap BUN Creatinine Estim Creat Clear Calc Est GFR (MDRD) Af Amer Est GFR (MDRD) Non-Af BUN/Creatinine Ratio Glucose Calcium Phosphorus Magnesium POC Glucose 148 H 255 H Micro: Microbiology 01/08/21 08:00 Sputum, Tracheal Aspirate Gram Stain - Final 01/08/21 08:00 Sputum, Tracheal Aspirate Respiratory Culture - Final 01/04/21 09:15 Blood Culture (Wb) - Right Wrist Blood Culture - Final No growth in 5 days. 01/04/21 09:05 Blood Culture (Wb) - Anticubital Right Blood Culture - Final No growth in 5 days. 01/04/21 09:15 Nasal Secretion SARS-CoV-2 Antigen (Rapid) - Final SARS-CoV-2 (COVID 19) Physical Exam Const alert, no apparent distress and healthy appearing General Appearance: cooperative, well kempt and well developed Orientation / Consciousness: awake, oriented to person and lethargic Exam Limitations: no limitations Nutritional Appearance: cachectic HEENT normocephalic, head/scalp atraumatic, hearing grossly normal bilaterally and moist oral mucous membranes Eyes PERRL, EOMs intact bilaterally and conjunctivae normal Neck nuchal rigidity, no lymphadenopathy, supple, no JVD, thyroid normal and no carotid bruits General: trachea midline Resp normal respiratory effort and clear to auscultation bilaterally Auscultation: Negative for rales, rhonchi or wheezes Cardio regular rate, regular rhythm, S1 normal heart sound, S2 normal heart sound, no murmurs, no rub and no gallops GI normal to inspection, nondistended, normoactive bowel sounds, soft to palpation, non-tender and non-distended Extremity normal to inspection, full ROM and no clubbing, cyanosis or edema Skin no rashes or lesions noted General Skin Exam: no breakdown Neuro oriented x3, CN's II-XII intact bilaterally, no focal motor deficits and no sensory deficits noted Sensorium / Orientation: awake, alert and oriented to person Speech: speech normal Psych thought process normal and affect normal Assessment & Plan Assessment/Plan (1) Pulmonary emboli: (2) COVID-19: (3) Essential (primary) hypertension: (4) Hypotension (arterial): PLAN: #1 acute hypoxic respiratory failure secondary to COVID-19 pneumonia with pulmonary emboli-patient is currently on 4 L nasal cannula and appears stable at this time from a respiratory standpoint, we will proceed with temporary placement in a care home facility for short-term rehab services #2 hypotension-probably secondary to #1, patient is off pressors #3 COVID-19 pneumonia-continue Decadron #4 pulmonary emboli-continue Eliquis #5 essential hypertension #6 generalized debility secondary to advanced age and multiple medical problems-continue PT and OT, patient will need short-term placement in a care home facility Visit Charges Inpatient E&M: 10601 Subs Hosp L2
[2021-01-11 19:01] LABS: Bedside Glucose 296 mg/dL (70-110)
[2021-01-12] VITALS (12 sets, daily range): BP systolic 99–153; BP diastolic 47–66; PULSE 63–92; RESP 19–26; TEMP 36.1–36.5; O2SAT 58–99
[2021-01-12 00:06] LABS: Bedside Glucose 163 mg/dL (70-110)
[2021-01-12 05:01] LABS: Absolute Lymphocyte Count 0.44 X10^3/uL (0.83-4.51); Absolute Neutrophil Count 12.3 X10^3/uL (2.0-7.7); Basophil# 0.02 X10^3/uL; Basophil% 0.1 % (0-1); Eosinophil# 0.03 X10^3/uL; Eosinophils% 0.2 % (0-5); Hematocrit 34.2 % (37-47); Hemoglobin 10.8 g/dL (12.0-15.0); Lymphocyte # 0.44 X10^3/ul (0.83-4.51); Lymphocyte % 3.2 % (19-41); Mean Corp Hgb Conc 31.6 g/dL (32-36); Mean Corpuscular Hgb 31.5 pg (27.0-32.0); Mean Corpuscular Volume 99.7 fL (81-99); Mean Platelet Vol. 11.2 fl (6.2-12.0); Monocyte# 0.58 X10^3/uL; Monocyte% 4.3 % (0-10); NRBC Flagged by Analyzer 0 % (0-5); Neutrophil # 12.27 X10^3/uL (2.7-7.7); Neutrophil % 90.4 % (47-70); POSITIVE DIFFERENTIAL YES; Platelet Count 224 K/mm3 (150-450); RBC Distribution Width CV 12.7 % (11.6-14.6); RBC Distribution Width SD 46.1 fl (35.1-43.9); Red Blood Count 3.43 M/mm3 (4.2-5.4); White Blood Count 13.6 K/mm3 (4.4-11.0)
[2021-01-12 05:04] LABS: Differential Indicated SCAN CRITERIA MET
[2021-01-12 05:08] LABS: Anion Gap 4 (5-15); BUN 36 mg/dL (7-18); BUN/Creat Ratio 63.4 RATIO (10-20); Chloride 106 mmol/L (98-107); Creatinine, Serum 0.57 mg/dL (0.55-1.02); EST Glomerular Filtration Rate 107 mL/min (>60); Est Glom Filt Rate - Afr Amer 130 mL/min (>60); Estimated Creatinine Clearance 29.33 ml/min; Glucose 146 mg/dL (74-106); Potassium 4.8 mmol/L (3.5-5.1); Sodium Level 139 mmol/L (136-145)
[2021-01-12 06:21] LABS: Differential Comment SCANNED
--- NOTE | 2021-01-12 06:58 | NURSING ---
Pt's dtr Gabrielle called and given updates of night's events. Notifying family that their mother stated multiple times that she wished we would just pull the plug and that she doesn't want to suffer like this any more. Gabrielle acknowledges information, family encouraged to gain access to a phone with video chat capabilities and the day staff can arrange a video call to possibly boost the pt's mood.
[2021-01-12] MEDS: Budesonide Respules 0.5 MG/2 ML AMPUL.NEB. INHALATION (07:14)
[2021-01-12] MEDS: Albuterol 2.5 MG/3 ML VIAL.NEB. INHALATION ×2 (07:14→09:15)
--- NOTE | 2021-01-12 07:24 | PN.CC_ITS ---
Subjective Subjective Patient did well overnight. Patient continues to be very weak and reports some shortness of breath, but has been maintaining on minimal nasal cannula oxygen. Patient is not reporting any chest pain. Nursing has some concerns the patient may be depressed. Objective Data Objective Data Vital Signs: Vital Signs Temp Pulse Resp BP Pulse Ox 36.5 C L 67 25 H 153/61 H 93 01/12/21 04:00 01/12/21 07:12 01/12/21 07:12 01/12/21 04:00 01/12/21 07:12 Oxygen Flow Rate (L/min) 4 Oxygen Delivery Method Nasal Cannula Weight: 46 kg Body Mass Index (BMI) 17.6 Intake & Output: Intake and Output for Last 24 Hours 01/10/21 01/11/21 01/12/21 23:59 23:59 23:59 Intake Total 1695.96 / 1695.96 626 / 652.5 26.5 / 26.5 Output Total 665 / 965 1600 / 1800 600 / 600 Balance 1030.96 / 730.96 -974 / -1147.5 -573.5 / -573.5 Lab / Micro Data Result Diagrams: 01/12/21 03:15 01/12/21 03:15 Labs: Laboratory Results - last 24 hr 01/11/21 01/11/21 01/11/21 07:30 12:23 18:48 WBC RBC Hgb Hct MCV MCH MCHC RDW Std Deviation RDW Coeff of Dinorah Plt Count MPV Immature Gran % (Auto) Neut % (Auto) Lymph % (Auto) [place] % (Auto) Eos % (Auto) Baso % (Auto) Absolute Neuts (auto) Absolute Lymphs (auto) Nucleated RBC % Differential Comment Sodium Potassium Chloride Carbon Dioxide Anion Gap BUN Creatinine Estim Creat Clear Calc Est GFR (MDRD) Af Amer Est GFR (MDRD) Non-Af BUN/Creatinine Ratio Glucose Calcium POC Glucose 148 H 255 H 296 H 01/11/21 01/12/21 01/12/21 23:55 03:15 03:15 WBC 13.6 H RBC 3.43 L Hgb 10.8 L Hct 34.2 L MCV 99.7 H MCH 31.5 MCHC 31.6 L RDW Std Deviation 46.1 H RDW Coeff of Dinorah 12.7 Plt Count 224 MPV 11.2 Immature Gran % (Auto) 1.800 H Neut % (Auto) 90.4 H Lymph % (Auto) 3.2 L [place] % (Auto) 4.3 Eos % (Auto) 0.2 Baso % (Auto) 0.1 Absolute Neuts (auto) 12.3 H Absolute Lymphs (auto) 0.44 L Nucleated RBC % 0 Differential Comment SCANNED Sodium 139 Potassium 4.8 Chloride 106 Carbon Dioxide 29.0 Anion Gap 4 L BUN 36 H Creatinine 0.57 Estim Creat Clear Calc 29.33 Est GFR (MDRD) Af Amer 130 Est GFR (MDRD) Non-Af 107 BUN/Creatinine Ratio 63.4 H Glucose 146 H Calcium 8.0 L POC Glucose 163 H Micro: Microbiology 01/08/21 08:00 Sputum, Tracheal Aspirate Gram Stain - Final 01/08/21 08:00 Sputum, Tracheal Aspirate Respiratory Culture - Final 01/04/21 09:15 Blood Culture (Wb) - Right Wrist Blood Culture - Final No growth in 5 days. 01/04/21 09:05 Blood Culture (Wb) - Anticubital Right Blood Culture - Final No growth in 5 days. 01/04/21 09:15 Nasal Secretion SARS-CoV-2 Antigen (Rapid) - Final SARS-CoV-2 (COVID 19) Physical Exam Narrative The patient's most recent lab work, culture data and imaging studies have all been personally reviewed. Const alert and no apparent distress General Appearance: cooperative, in distress, lethargic and frail HEENT normocephalic and head/scalp atraumatic Eyes PERRL and EOMs intact bilaterally Neck full ROM and no lymphadenopathy General: normal visual inspection and trachea midline Chest inspection of chest normal Chest: symmetrical chest wall rise Resp normal respiratory effort Effort and Inspection: Negative for respiratory distress, labored or uses access ory muscles Auscultation: diminished lung sounds; Negative for rales, rhonchi or wheezes Cardio regular rate, regular rhythm, S1 normal heart sound and S2 normal heart sound GI normal to inspection, nondistended, normoactive bowel sounds Extremity no clubbing, cyanosis or edema Skin no rashes or lesions noted Neuro oriented x3, CN's II-XII intact bilaterally and moves all extremities Sensorium / Orientation: sedated on vent Psych cooperative and affect normal Assessment & Plan Assessment/Plan (1) Respiratory failure: (2) Pulmonary emboli: (3) COVID-19: PLAN: RECOMMENDATIONS: 1. Continue monitored feedings 2. Wean oxygen as tolerated. 3. Anticipate completion of 7 days of antibiotics 4. Completed remdesivir 5. Continue Decadron to complete 10-day treatment course. 6. Continue systemic anticoagulation with Eliquis. 7. Hold on addition of long-acting insulin 8. Continue appropriate GI prophylaxis. 9. Exploration of discharge options appropriate from my perspective IMPRESSIONS: 1. Acute hypoxemic respiratory failure secondary to COVID-19 pneumonia/pulmonary emboli The patient presented with approximately 1 week of symptoms which gradually worsened. She was subsequently found to have not only coronavirus but pulmonary emboli as well. The patient was subsequently placed on Decadron and systemic anticoagulation. For several days, the patient did well on heated high flow oxygen. However, on the morning of January 08, she decompensated from a respiratory perspective, requiring intubation. Chest x-ray did reveal worsening bilateral infiltrates, particularly throughout the right hemithorax. Patient has done well since extubation from a respiratory standpoint. Patient has completed remdesivir, but will be continued on Decadron to complete a 10-day course. Patient is becoming more responsive. 2. Distributive shock Resolved. Patient appears to be doing well from a hemodynamic standpoint following cessation of propofol and fentanyl 3. Hypertension/rheumatoid arthritis/asthma/advanced age Complicates care, management, recovery and prognosis. Diuretics and antihypertensives to remain on hold. Continued monitored feedings given weakness 4. Hyperglycemia This is likely secondary to steroids in the setting of tube feeds. We will continue to monitor blood sugars. Blood sugars continue to improve following cessation of tube feeds. We will hold on long-acting insulin for now. 5. Possible depression Patient appears to be exhibiting anhedonia. Patient is complaining of shortness of breath, but is saturating well on nasal cannula oxygen. Will at tempt behavioral measures. May attempt a zoom call with family to lift spirits. Continue to work with therapy and getting out of bed. Delirium prevention protocol continues. Addendum Addendum: Patient with acute decompensation at approximately 9 AM. Patient was moved to bed and started to desaturate. Patient was NT suctioned and placed on Airvo with some improvement. During the acute episode, patient stated that she did not want to be reintubated. Family was called and is on her way a.m. to evaluate with the patient. If family agrees, anticipate hospice measures later this afternoon for symptom management. Patient did report to the nurses overnight that she is tired of suffering. Total critical care time associated with this decompensation event was 45 minutes. Visit Charges Inpatient E&M: 28429 Subs Hosp L2 Multi Select Codes Hospitalists' Procedures Procedures: 75965 Critial Care 1st Hr
--- NOTE | 2021-01-12 09:08 | CPS ---
This R.T. was called into room STAT d/t pt desating. RN & SPRAY PAINTER HELPER were in room with patient assisting breathing w/Ambu bag @15lpm which helped get Sats into 70-80's. R.T. gave Albuterol aerosol and placed pt on Airvo @60L & 90% which brought Sat into mid 80's. R.T. NT suctioned pt (x 4) per Dr Paula's order, sx'd large amounts of thick creamy mucus. Pt's Sats came up to 89-91% after sx & Airvo
--- NOTE | 2021-01-12 09:12 | RAD_ITS ---
STUDY: X-RAY CHEST REASON FOR EXAM: Female, 85 years old. Shortness of breath TECHNIQUE: Single AP portable view of the chest. COMPARISON: Comparison is made with prior study dated 01/08/2021. FINDINGS: The endotracheal tube and orogastric tube have been removed. A right-sided PICC line catheter is seen with the tip at the junction of superior vena cava and right atrium. Since prior study, there has been progressive airspace disease in the right hemithorax. Infiltration is also seen in the left lower lobe. Blunting of both cosmetic angles. Normal size heart. Normal mediastinum and laney. Normal visualized pulmonary arteries. There is atherosclerotic calcification of the aortic arch with tortuosity. Normal visualized thoracic spine. Normal visualized ribs, clavicles, and shoulders. There is no demonstrated abnormality of the visualized soft tissue structures of the upper abdomen. RAD/Chest 1 View (Portable) IMPRESSION: Progressive infiltration in the right hemithorax as well as at the left lung base. The tip of the right PICC line catheter is at the junction of the superior vena cava and right atrium. Electronically Signed: Sea Tee MD at 9:55 EDT , Service support ,
[2021-01-12 09:36] LABS: Bedside Glucose 99 mg/dL (70-110)
--- NOTE | 2021-01-12 09:39 | NURSING ---
pt daughters Madeline and Bailee were notified that pt oxygenation is not maintaining. The pt states I do not want reintubated. The pt went from 4L to Airvo 60L and 90%. The pt daughters are on their way to see the pt. Continue to monitor pt.
--- NOTE | 2021-01-12 10:46 | CASEMGMT ---
Social Work SW spoke with [facility] regarding referral. They can accept pt if they are able to accommodate oxygen requirements. The maximum amount of oxygen they can provide is 10L NC. Pt informed [facility] that there has been a status change overnight. SW will follow up with [facility] regarding placement at a later time. Plan: - Family to meet with pt to discuss pt wishes regarding care going forward - [facility] can accept and provide high Flow oxygen - [facility] can accept if oxygen needs are 10L NC or below - Insurance precert will need obtained at either facility LOPEZ Carey
--- NOTE | 2021-01-12 11:43 | CASEMGMT ---
Social Work SW met with pt and two daughters Nora and Madeline in pt room. Pt sleeping at this time but daughters state she was awake and they spoke to her about wishes. Daughters requesting hospice services. SW explained both inpaitient hospice unit and home with hospice services. Daughters would prefer inpatient unit. Dr. Daniel updated and agreeable. Emotional support provided to family. Referral made to Chidi at [facility] and rooms are available. Information faxed. Once information is received and provided to Dr. Brock, hospice doctor, this SW will be contacted and Dr. wanda Giles phone call will be initiated. Nursing and Dr. Daniel updated. LOPEZ Carey
[2021-01-12] MEDS: Vancomycin IV 1,000 MG/200 ML BAG 200 MG IV (11:47)
--- NOTE | 2021-01-12 13:29 | CASEMGMT ---
Social Work YOUNG spoke with Chidi from [facility]. to consult has been completed and pt has been accepted to inpatient hospice unit. Chidi meeting with pt family at this time to complete paper work. [facility] unable to provide transport at this time. YOUNG set up transportation with [facility] for [phone] cot. Nursing, family and Hospice made aware. Sergio and YOUNG notified to cancel SNF referrals. LOPEZ Carey
[2021-01-12 14:15] LABS: Bedside Glucose 118 mg/dL (70-110)
--- NOTE | 2021-01-14 08:30 | DS.PCM_ITS ---
Providers Date of Admission: 01/04/21 Date of Discharge: 01/12/21 Primary Care Physician: JEANA Felix Consultations 01/04/21 13:16 Consult: Splicer Machine Operator / Pulmonary Medicine Routine Consulting Provider: Pulmonary Medicine donovan Akash Reason for Consult: Covid-19 EMERGENT Consult: No Notified: Yes Date Notified:: 01/04/21 Time Notified: 13:16 Method of Notification: Text 01/04/21 13:17 Consult: Infectious Disease Routine Consulting Provider: Ebenezer Reyes Reason for Consult: Covid-19 EMERGENT Consult: No Notified: Yes Date Notified:: 01/04/21 Time Notified: 13:17 Method of Notification: Text 01/12/21 11:24 Consult: Hospice / Palliative Care Routine Consulting Provider: [facility] Reason for Consult: respiratory failure EMERGENT Consult: No Notified: Yes Date Notified:: 01/12/21 Time Notified: 11:24 Method of Notification: Verbal Reason For Visit: ACUTE HYPOXIC RESPIRATORY FAILURE, COVID 19 Diagnosis Discharge Diagnosis (1) Respiratory failure: Status: Acute Code(s): J96.90 - Respiratory failure, unspecified, unspecified whether with hypoxia or hypercapnia Plan: #1 acute hypoxic respiratory failure secondary to COVID-19 pneumonia with pulmonary emboli #2 Distributive shock secondary to COVID-19 pneumonia #3 COVID-19 pneumonia #4 pulmonary emboli #5 essential hypertension #6 generalized debility secondary to advanced age and multiple medical problems (2) Pulmonary emboli: Status: Acute Code(s): I26.99 - Other pulmonary embolism without acute cor pulmonale (3) COVID-19: Status: Acute Code(s): U07.1 - COVID-19 Medications at Discharge Home Medications folic acid 2 mg PO DAILY 01/08/16 metoprolol succinate 25 mg PO DAILY 01/08/16 naproxen [Naprosyn] 1 tab PO BID 01/08/16 ramipril 2.5 mg PO DAILY 01/08/16 furosemide 40 mg PO DAILY #5 tablet 01/14/16 dexamethasone 6 mg PO DAILY 01/04/21 fluticasone furoate-vilanterol [Breo Ellipta] 1 inh INHALATION DAILY 01/04/21 lidocaine 1 patch TOPICAL DAILY 01/04/21 Hospital Course Operations None Procedures None Summary of Care Provided Minutes Spent on Discharge: 33 Hospital Course: This 85-year-old white female presented to the emergency room at [facility] with a chief complaint of shortness of breath, she was noted to be afebrile and hemodynamically stable, white blood cell count was elevated at 12,000, D-dimer was elevated greater than 20, lactic acid was 2.8. Coronavirus antigen testing was positive, CT of the chest revealed evidence of pulmonary emboli in the right upper lobe along with groundglass changes in both lungs. Patient was started on high flow oxygen and IV Decadron, she was admitted to the intensive care unit and seen in consultation by infectious diseases, she was anticoagulated. Patient was given remdesivir, despite aggressive treatment, patient's respiratory status initially improved but then declined again. Conversations were carried out with the patient's daughters, they requested hospice consultation, hospitalist was contacted and agreed to take the patient in the inpatient hospice facility at [place]. On 01/12/2021, patient was seen and examined: On examination she appeared frail and unwell, she does not appear to be in any distress. Patient is on high flow oxygen. Vital signs as documented. Skin warm and dry and without overt rashes. Neck without JVD, thyroid appears normal, trachea is midline, neck is supple. Lungs clear, normal air movement was noted. Heart exam notable for regular rhythm, normal sounds and absence of murmurs, rubs or gallops. Abdomen unremarkable and without evidence of organomegaly, masses, or abdominal aortic enlargement, bowel sounds are present in all 4 quadrants, no abdominal tenderness was noted. Extremities nonedematous, no cyanosis was noted, no clubbing was noted. Neuro: Cranial nerves II through XII are grossly intact, no focal motor deficits were noted, sensation to light touch and pinprick is intact, motor exam 5/5 throughout. Psych: Patient is alert and oriented x3, she does not appear anxious or depressed, she does not appear agitated. On 01/12/2021, patient was transferred to the inpatient hospice care facility at [facility] in terminal condition. ABG / Lab / Microbiology Data Result Diagrams: 01/12/21 03:15 01/12/21 03:15 Microbiology: Microbiology 01/08/21 08:00 Sputum, Tracheal Aspirate Gram Stain - Final 01/08/21 08:00 Sputum, Tracheal Aspirate Respiratory Culture - Final 01/04/21 09:15 Blood Culture (Wb) - Right Wrist Blood Culture - Final No growth in 5 days. 01/04/21 09:05 Blood Culture (Wb) - Anticubital Right Blood Culture - Final No growth in 5 days. 01/04/21 09:15 Nasal Secretion SARS-CoV-2 Antigen (Rapid) - Final SARS-CoV-2 (COVID 19) Meaningful Use Info Meaningful Use Diagnoses (Choose all that apply): None applicable Discharge Plan Admission Admit Date/Time: 01/04/21 11:53 Attending Provider: Nazario Daniel Primary Care Provider: Jennie Matias NP Consulting Providers: Ebenezer Reyes ; Jhonny Paula ; Ritchie Hoyt ; Mattie Arroyo TOOL ENGINEER ; Manda Alcantar ; Srinivas Pollack ; Swapna Ramos ; Laurel Babcock ; Heena Bee ; Sadaf Salgado TOOL ENGINEER Discharge Orders/Prescriptions Prescriptions: No Action ramipril 2.5 MG capsule 2.5 mg PO DAILY RF: 0 folic acid 1 MG tablet 2 mg PO DAILY RF: 0 metoprolol succinate 25 MG tablet 25 mg PO DAILY RF: 0 naproxen [Naprosyn] 500 MG tablet 1 tab PO BID RF: 0 furosemide 40 MG tablet 40 mg PO DAILY Qty: 5 RF: 0 lidocaine 4 % Adhesive Patch,Medicated 1 patch TOPICAL DAILY RF: 0 dexamethasone 6 mg tablet 6 mg PO DAILY RF: 0 Breo Ellipta 100-25 mcg/dose blister with device 1 inh INHALATION DAILY RF: 0 Referrals / Follow Up: Jennie Matias TOOL ENGINEER, TOOL ENGINEER-C [Primary Care Provider] - Disposition Disposition (needs filled in before D/C Order can be placed): Hospice in Medical Facility Visit Charges Inpatient E&M: 99967 Disch Hosp
== END 2021-01-12 15:20 | disposition hospice, inpatient (51) | DRG 208 ==
LOC: ED 11:39 → ICU 12:25
PROVIDERS: Internal Medicine Critical Care Medicine; Internal Medicine Infectious Disease; Admitting Provider Student in an Organized Health Care Education/Training Program; Emergency Provider Emergency Medicine; PCP Nurse Practitioner Family; Visit Provider Internal Medicine
DX: U07.1 COVID-19 (principal); J12.82 Pneumonia due to coronavirus disease 2019; I26.99 Other pulmonary embolism without acute cor pulmonale; J96.01 Acute respiratory failure with hypoxia; R65.21 Severe sepsis with septic shock; I10 Essential (primary) hypertension; R53.81 Other malaise; B94.8 Sequelae of other specified infectious and parasitic diseases; Z79.899 Other long term (current) drug therapy; J45.909 Unspecified asthma, uncomplicated; M06.9 Rheumatoid arthritis, unspecified; T38.0X5A Adverse effect of glucocorticoids and synthetic analogues, initial encounter; R73.9 Hyperglycemia, unspecified
CPT/HCPCS: 31500; 31720; 36569; 36600; 71045; 71275; 80048; 80053; 80202; 82550; 82803; 82962; 83605; 83615; 83735; 83880; 84100; 84145; 84478; 84484; 85025; 85379; 85384; 85730; 86140; 87040; 87070; 87205; 87426; 87641; 92526; 92610; 93005; 94002; 94003; 94640; 94660; 94668; 97110; 97162; 97163; 97166; 97530; 97535; 97802; 99251; 99285; J7030; J7050; Q9967; A4216; G0463; J2405; J3010